=== PATIENT | male | born 1955 | race Caucasian/White ===

== ENCOUNTER → 2023-12-12 | Outpatient (CLI) | payer BC, SELFPAY ==
[2023-12-12 08:27] LABS: Basophils % (Auto) 1 % (0-2.5); Eosinophils # (Auto) 0.2 Thou/mm3 (0.0-0.5); Eosinophils % (Auto) 3 % (0-10); Hematocrit 43.7 % (41.0-53.0); Hemoglobin 13.8 g/dL (13.5-16.0); Immature Granulocytes % (Auto) 3 % (0-0); Immature Granulocytes Auto 0.16 Thou/mm3 (0.00-0.00); Lymphocytes # (Auto) 0.9 Thou/mm3 (1.0-4.8); Lymphocytes % (Auto) 14 % (10-50); Mean Corpuscular HGB Conc 31.6 g/dl (31.0-37.0); Mean Corpuscular Hemoglobin 26.8 pg (25.0-35.0); Mean Corpuscular Volume 85 fL (80-100); Monocytes # (Auto) 0.6 Thou/mm3 (0.0-0.8); Monocytes % (Auto) 9 % (0-12); Neutrophils # (Auto) 4.7 Thou/mm3 (1.8-7.7); Neutrophils % (Auto) 72 % (37-80); Nucleated Red Blood Cell % 0 /100 WBC (0); Platelet Count 201 Thou/mm3 (140-440); RDW Standard Deviation 41.1 fL (35.1-43.9); Red Blood Count 5.15 Miln/mm3 (4.50-5.90); White Blood Count 6.5 Thou/mm3 (3.8-10.6)
--- NOTE | 2023-12-12 08:32 | EKG_ITS ---
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
[2023-12-12 09:06] LABS: Alanine Aminotransferase 25 U/L (10-49); Albumin, Serum 4.5 gm/dL (3.4-4.8); Albumin/Globulin Ratio 1.7 (1.2-2.2); Alkaline Phosphatase 84 U/L (46-116); Anion Gap 10 (7-16); Aspartate Amino Transferase 21 U/L (0-34); BUN/Creatinine Ratio 15 Ratio (12-20); Bilirubin,Total 0.6 mg/dL (0.3-1.2); Blood Urea Nitrogen 20 mg/dL (9-23); Calcium 9.5 mg/dL (8.3-10.6); Calcium (Corrected) 9.5 mg/dL (8.5-10.1); Carbon Dioxide 27.8 mMol/L (20.0-31.0); Chloride 101 mMol/L (98-107); Creatinine (Component) 1.3 mg/dL (0.6-1.3); Globulin 2.6 gm/dL (2.3-3.5); Glucose 314 mg/dL (74-106); Osmolality,Calculated 292 (275-295); Potassium 4.6 mMol/L (3.4-5.1); Sodium 139 mMol/L (136-145); Total Protein 7.1 gm/dL (5.7-8.2); eGFR > 60 See Note
[2023-12-13 08:35] LABS: Misc Send Out* See Sep Rpt
== END | disposition home or self-care (01) ==
PROVIDERS: PCP Family Medicine; Referring Provider Orthopaedic Surgery; Visit Provider Orthopaedic Surgery
DX: M75.112 Incomplete rotator cuff tear or rupture of left shoulder, not specified as traumatic (principal); M25.512 Pain in left shoulder
CPT/HCPCS: 36415; 80053; 83036; 85025; 93005

== ENCOUNTER → 2024-05-13 | Outpatient (CLI) | payer OTHER, SELFPAY ==
--- NOTE | 2024-05-13 09:19 | EKG_ITS ---
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 : 1955 Requested By: Lalo Maldonado Order Number: [id number] Reading MD: Lalo Maldonado Measurements Intervals [place] Rate: 97 P: MO: QRS: 188 QRSD: 113 T: -7 QT: 352 QTc: 448 Interpretive Statements ATRIAL FLUTTER/TACHYCARDIA INCOMPLETE RIGHT BUNDLE BRANCH BLOCK [90+ ms QRS DURATION, TERMINAL R IN V1/V2, 40+ ms S IN I/aVL/V4/V5/V6] POSSIBLE RIGHT VENTRICULAR HYPERTROPHY [SOME/ALL OF: PROMINENT R IN V1, LATE TRANSITION, RAD, KEREN, SSS] ANTEROSEPTAL MYOCARDIAL INFARCTION , PROBABLY OLD [40+ ms Q WAVE IN V1-V4] Compared to ECG 12/12/2023 08:36:45 Sinus rhythm no longer present Indeterminate axis no longer present Myocardial infarct finding still present /store/S0/[id number]
[2024-05-13 09:47] LABS: Anion Gap 10 (7-16); BUN/Creatinine Ratio 14 Ratio (12-20); Blood Urea Nitrogen 20 mg/dL (9-23); Calcium 8.7 mg/dL (8.3-10.6); Carbon Dioxide 30.3 mMol/L (20.0-31.0); Chloride 98 mMol/L (98-107); Creatinine (Component) 1.4 mg/dL (0.6-1.3); Glucose 323 mg/dL (74-106); Osmolality,Calculated 290 (275-295); Potassium 3.5 mMol/L (3.4-5.1); Sodium 138 mMol/L (136-145); eGFR 55 See Note
== END | disposition home or self-care (01) ==
PROVIDERS: PCP Family Medicine; Referring Provider Surgery Surgery of the Hand; Visit Provider Surgery Surgery of the Hand
DX: Z01.818 Encounter for other preprocedural examination (principal); G56.02 Carpal tunnel syndrome, left upper limb
CPT/HCPCS: 36415; 80048; 93005

== ENCOUNTER → 2024-06-26 | Outpatient (CLI) | payer OTHER, SELFPAY ==
[2024-06-26 09:56] LABS: Anion Gap 13 (7-16); BUN/Creatinine Ratio 23 Ratio (12-20); Blood Urea Nitrogen 34 mg/dL (9-23); Calcium 8.9 mg/dL (8.3-10.6); Carbon Dioxide 26.6 mMol/L (20.0-31.0); Chloride 101 mMol/L (98-107); Creatinine (Component) 1.5 mg/dL (0.6-1.3); Glucose 202 mg/dL (74-106); Osmolality,Calculated 294 (275-295); Potassium 3.9 mMol/L (3.4-5.1); Sodium 141 mMol/L (136-145); eGFR 51 See Note
== END | disposition home or self-care (01) ==
LOC: COPL 08:54
PROVIDERS: PCP Family Medicine; Referring Provider Surgery Surgery of the Hand; Visit Provider Surgery Surgery of the Hand
DX: Z01.818 Encounter for other preprocedural examination (principal); G56.02 Carpal tunnel syndrome, left upper limb
CPT/HCPCS: 36415; 80048

== ENCOUNTER → 2024-07-17 | Outpatient (CLI) | payer BC, SELFPAY ==
--- NOTE | 2024-07-17 13:45 | XR_ITS ---
Examination: MRI lumbar spine without contrast Date and time of exam: July 17, 2024 at 1456 hours Comparison 11/04/2017 INDICATIONS: Intermittent low back pain 3 years radiating down the left leg Technique: Multiple MRI axial and sagittal sections lumbar spine. Sagittal T2-weighted images, TR 3500, TE 118 T1 weighted transverse sections, TR 688 T8.5, T2-weighted sagittal sections T1 weighted sagittal sections TR 621, TE 30 T2 axial sections, TR 4, 190, TE 84. Findings: Adequate alignment lumbar vertebral bodies No lumbar fracture Mild distention posteriorly L5-S1 L5-S1 4 mm left foraminal disc bulge sagittal image 11 producing mild left L5 ganglionic compression L4-L5 3 mm central lumbar disc bulge More cephalad levels unremarkable IMPRESSION: L5-S1 4 mm left foraminal disc bulge producing mild left L5 ganglionic compression L4-L5 3 mm central lumbar disc bulge
== END | disposition home or self-care (01) ==
LOC: SMRI 13:10
PROVIDERS: PCP Family Medicine; Referring Provider Family Medicine; Visit Provider Family Medicine
DX: M51.379 Other intervertebral disc degeneration, lumbosacral region without mention of lumbar back pain or lower extremity pain (principal)
CPT/HCPCS: 72148

== ENCOUNTER 2024-09-24 06:33 | Day surgery (SDC) | payer BC, SELFPAY ==
--- NOTE | 2024-09-23 07:00 | EKG_ITS ---
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 : 1955 Requested By: Gabino Newton Order Number: [id number] Reading MD: Gabino Newton Measurements Intervals [place] Rate: 103 P: 40 MD: 184 QRS: 218 QRSD: 109 T: 7 QT: 352 QTc: 462 Interpretive Statements SINUS TACHYCARDIA MARKED RIGHT AXIS DEVIATION [QRS AXIS > 100] LOW QRS VOLTAGE [QRS DEFLECTION < 0.5/1.0 mV IN LIMB/CHEST LEADS] RIGHT BUNDLE BRANCH BLOCK [120+ ms QRS DURATION, UPRIGHT V1, 40+ ms S IN I/aVL/V4/V5/V6] INFERIOR MYOCARDIAL INFARCTION , PROBABLY OLD [40+ ms Q WAVE AND/OR ST/T ABNORMALITY IN II/aVF] ANTEROSEPTAL MYOCARDIAL INFARCTION , PROBABLY OLD [40+ ms Q WAVE IN V1-V4] Compared to ECG 05/13/2024 09:26:38 Right-axis deviation now present Low QRS voltage now present Right bundle-branch block now present Atrial flutter no longer present Incomplete right bundle-branch block no longer present Myocardial infarct finding still present /store/S0/[id number]/[id number].pdf
[2024-09-23 09:47] LABS: Basophils # (Auto) 0.0 Thou/mm3 (0.0-0.2); Basophils % (Auto) 1 % (0-2.5); Eosinophils # (Auto) 0.1 Thou/mm3 (0.0-0.5); Eosinophils % (Auto) 2 % (0-10); Hematocrit 38.7 % (41.0-53.0); Hemoglobin 11.9 g/dL (13.5-16.0); Immature Granulocytes Auto 0.04 Thou/mm3 (0.00-0.00); Lymphocytes # (Auto) 0.8 Thou/mm3 (1.0-4.8); Lymphocytes % (Auto) 14 % (10-50); Mean Corpuscular HGB Conc 30.7 g/dl (31.0-37.0); Mean Corpuscular Hemoglobin 26.2 pg (25.0-35.0); Mean Corpuscular Volume 85 fL (80-100); Monocytes # (Auto) 0.5 Thou/mm3 (0.0-0.8); Monocytes % (Auto) 10 % (0-12); Neutrophils # (Auto) 3.8 Thou/mm3 (1.8-7.7); Neutrophils % (Auto) 72 % (37-80); Nucleated Red Blood Cell # 0.00 Thou/mm3 (0.00-0.00); Nucleated Red Blood Cell % 0 /100 WBC (0); Platelet Count 196 Thou/mm3 (140-440); RDW Standard Deviation 54.4 fL (35.1-43.9); Red Blood Count 4.55 Miln/mm3 (4.50-5.90); White Blood Count 5.3 Thou/mm3 (3.8-10.6)
[2024-09-23 10:12] LABS: Anion Gap 11 (7-16); BUN/Creatinine Ratio 16 Ratio (12-20); Blood Urea Nitrogen 19 mg/dL (9-23); Calcium 9.8 mg/dL (8.3-10.6); Carbon Dioxide 25.8 mMol/L (20.0-31.0); Chloride 105 mMol/L (98-107); Creatinine (Component) 1.2 mg/dL (0.6-1.3); Glucose 184 mg/dL (74-106); Osmolality,Calculated 290 (275-295); Potassium 3.8 mMol/L (3.4-5.1); Sodium 142 mMol/L (136-145); eGFR > 60 See Note
[2024-09-23 10:23] LABS: COVID-19 Antigen (In-House) Negative (Negative)
[2024-09-23 10:50] LABS: INR 1.1 (0.9-1.3); Partial Thromboplastin Time 25.5 Seconds (22.0-36.0); Prothrombin Time 11.6 Seconds (9.0-12.2)
[2024-09-23 14:55] VITALS: BMI 29.5
[2024-09-24] VITALS (18 sets, daily range): BP systolic 119–156; BP diastolic 64–120; PULSE 97–109; RESP 14–21; TEMP 36.6–36.9; O2SAT 90–99; BMI 31.8
[2024-09-24] MEDS: DIAZEPAM 5 MG TABLET PO (07:21)
--- NOTE | 2024-09-24 08:24 | PD.CARDCATH ---
Cardiac Cath Procedure Procedure Narrative Date of the procedure 09/24/2024 Title of the procedure 1.left heart catheterization 2.left coronary angiogram 3.right coronary angiogram 4.left ventriculogram 5.conscious sedation 6.radiographic interpretation supervision Indication for the procedure This is a 68-year-old gentleman with hypertension diabetes hyperlipidemia prior history of heart transplantation Patient was complaining of atypical chest pain pressure heaviness sensation Process Cardiolite scan was abnormal Cardiac catheter and coronary angiogram was recommended Procedure This was done in the cardiac lab under current electrocardiographic monitoring Intermittent blood pressure monitoring right radial access obtained using modified Seldinger technique and ultrasound guidance 5French sheath was placed JR4 catheter used was selective in the right coronary artery JL 4 catheter was used for selective angio left coronary artery Pigtail catheter used for left ventriculogram Hemodynamics Overall left and the systolic function is mildly reduced Approximate ejection fraction 45% End-diastolic pressure was 18 mmHg There is no gradient across the aortic valve Coronary anatomy 1.left main coronary artery appears normal 2.left anterior descending artery has a 40% lesion in the midsegment 3.diagonal appears to show luminal regularities 4.circumflex does not seem to have any significant lesion 5.right coronary is a dominant vessel 6.no significant lesion noted in the right coronary artery or PDA Conclusion Mild coronary artery disease continue medical management
[2024-09-24] MEDS: SODIUM CHLORIDE 0.9% 1000 ML 1,000 ML 200 ML IV (08:29)
--- NOTE | 2024-09-24 13:15 | PC.NURSE ---
22 gauge IV removed without complications. Patient tolerated procedure well.
== END 2024-09-24 13:22 | disposition home or self-care (01) ==
PROVIDERS: PCP Family Medicine; Referring Provider Internal Medicine; Visit Provider Internal Medicine
PROC: (CPT 93458; principal; 2024-09-24 07:45)
DX: I25.10 Atherosclerotic heart disease of native coronary artery without angina pectoris (principal); Z94.1 Heart transplant status; E11.9 Type 2 diabetes mellitus without complications; I10 Essential (primary) hypertension; Z79.899 Other long term (current) drug therapy; Z79.84 Long term (current) use of oral hypoglycemic drugs; Z01.810 Encounter for preprocedural cardiovascular examination; I25.2 Old myocardial infarction; I42.9 Cardiomyopathy, unspecified
CPT/HCPCS: 93458; 36415; 75710; 80048; 85025; 85610; 85730; 87811; 93005; 99152; 99153; A4216; A4649; C1751; C1769; C1887; C1894; J0168; J0461; J0583; J1643; J2250; J2312; J2371; J3010; J3490; J7030; Q9967; A9270; C1725

== ENCOUNTER → 2024-12-30 | Outpatient (CLI) | payer BC, SELFPAY ==
--- NOTE | 2024-12-30 13:05 | XR_ITS ---
EXAMINATION: XR chest 2V ORDERING PROVIDER: Jordan Vyas MD HISTORY: ACUTE COUGH TECHNIQUE: PA and Lateral radiographs of the chest. COMPARISON: 05/03/2021, chest radiographs. FINDINGS: Mild cardiomegaly. Median sternotomy wires. Uncoiled aorta. Calcifications aortic arch. Coronary artery stents. No pneumothorax. Mild blunting right costophrenic angle. Asymmetric elevation right hemidiaphragm compared to the left. Bibasilar patchy airspace opacities. Vasculopathic changes. Osteopenia. IMPRESSION: Bibasilar pneumonia with small right pleural effusion. Recommend follow-up imaging to resolution.
[2024-12-30 13:29] LABS: Basophils # (Auto) 0.0 Thou/mm3 (0.0-0.2); Basophils % (Auto) 0 % (0-2.5); Eosinophils # (Auto) 0.1 Thou/mm3 (0.0-0.5); Eosinophils % (Auto) 1 % (0-10); Hematocrit 37.6 % (41.0-53.0); Hemoglobin 11.7 g/dL (13.5-16.0); Immature Granulocytes Auto 0.04 Thou/mm3 (0.00-0.00); Lymphocytes # (Auto) 0.5 Thou/mm3 (1.0-4.8); Lymphocytes % (Auto) 8 % (10-50); Mean Corpuscular HGB Conc 31.1 g/dl (31.0-37.0); Mean Corpuscular Hemoglobin 25.7 pg (25.0-35.0); Mean Corpuscular Volume 83 fL (80-100); Monocytes # (Auto) 0.7 Thou/mm3 (0.0-0.8); Monocytes % (Auto) 11 % (0-12); Neutrophils # (Auto) 4.9 Thou/mm3 (1.8-7.7); Neutrophils % (Auto) 79 % (37-80); Nucleated Red Blood Cell # 0.00 Thou/mm3 (0.00-0.00); Nucleated Red Blood Cell % 0 /100 WBC (0); Platelet Count 184 Thou/mm3 (140-440); RDW Standard Deviation 49.6 fL (35.1-43.9); Red Blood Count 4.55 Miln/mm3 (4.50-5.90); White Blood Count 6.2 Thou/mm3 (3.8-10.6)
[2024-12-30 13:53] LABS: Alanine Aminotransferase 9 U/L (10-49); Albumin, Serum 4.2 gm/dL (3.4-4.8); Albumin/Globulin Ratio 1.6 (1.2-2.2); Alkaline Phosphatase 100 U/L (46-116); Anion Gap 10 (7-16); Aspartate Amino Transferase 13 U/L (0-34); BUN/Creatinine Ratio 16 Ratio (12-20); Bilirubin,Total 1.1 mg/dL (0.3-1.2); Blood Urea Nitrogen 28 mg/dL (9-23); Calcium 8.7 mg/dL (8.3-10.6); Calcium (Corrected) 8.7 mg/dL (8.5-10.1); Carbon Dioxide 25.8 mMol/L (20.0-31.0); Chloride 103 mMol/L (98-107); Creatinine (Component) 1.7 mg/dL (0.6-1.3); Globulin 2.6 gm/dL (2.3-3.5); Glucose 340 mg/dL (74-106); Osmolality,Calculated 296 (275-295); Potassium 4.2 mMol/L (3.4-5.1); Sodium 139 mMol/L (136-145); Total Protein 6.8 gm/dL (5.7-8.2); eGFR 43 See Note
[2024-12-30 14:08] LABS: B-Type Natriuretic Peptide 1423 pg/mL (0-100)
== END | disposition home or self-care (01) ==
PROVIDERS: PCP Family Medicine; Referring Provider Family Medicine; Visit Provider Radiology Diagnostic Radiology
DX: J18.9 Pneumonia, unspecified organism (principal); J90 Pleural effusion, not elsewhere classified; N18.30 Chronic kidney disease, stage 3 unspecified
CPT/HCPCS: 36415; 71046; 80053; 83880; 85025

== ENCOUNTER → 2025-01-06 | Outpatient (CLI) | payer BC, SELFPAY ==
--- NOTE | 2025-01-06 12:36 | XR_ITS ---
EXAMINATION: PA lateral chest 2 views TECHNIQUE: Upright PA lateral chest 2 views Date and time: 2024, 1241 hours, comparison December 30, 2024 INDICATIONS: Coughing congestion 1 month. FINDINGS: Mild pneumonia both bases Small right pleural effusion Mild prominence left ventricle Median sternotomy wires IMPRESSION: Mild pneumonia both bases
== END | disposition home or self-care (01) ==
LOC: CDIM 12:30
PROVIDERS: PCP Nurse Practitioner Family; Referring Provider Nurse Practitioner Family; Visit Provider Nurse Practitioner Family
DX: J18.9 Pneumonia, unspecified organism (principal)
CPT/HCPCS: 71046

== ENCOUNTER 2025-01-07 10:48 | Inpatient (IN) | payer BC, SELFPAY ==
[2025-01-07 11:16] VITALS: BP 138/90; PULSE 123; RESP 18; TEMP 36.8; O2SAT 95; BMI 31.0
--- NOTE | 2025-01-07 11:26 | XR_ITS ---
EXAMINATION: PA lateral chest 2 views TECHNIQUE: Upright PA lateral chest 2 views Date and time: January 07, 2025, 11:28 a.m., comparison 08/06/2024 INDICATIONS: Difficulty breathing this week, pneumonia both bases on earlier chest imaging FINDINGS: Mild pneumonia both bases Small to moderate right pleural effusion Median sternotomy wires Moderate vascular congestion IMPRESSION: Mild pneumonia both bases Small to moderate right pleural effusion
--- NOTE | 2025-01-07 11:27 | EKG_ITS ---
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: : 1955 Requested By: Ebenezer Macias (COLLAR STAY FUSER TENDER) Order Number: [id number] Reading MD: Ebenezer Macias (COLLAR STAY FUSER TENDER) Measurements Intervals [place] Rate: 111 P: 33 VA: 171 QRS: 239 QRSD: 110 T: 12 QT: 301 QTc: 410 Interpretive Statements SINUS TACHYCARDIA INCOMPLETE RIGHT BUNDLE BRANCH BLOCK [90+ ms QRS DURATION, TERMINAL R IN V1/V2, 40+ ms S IN I/aVL/V4/V5/V6] POSSIBLE RIGHT VENTRICULAR HYPERTROPHY [SOME/ALL OF: PROMINENT R IN V1, LATE TRANSITION, RAD, KEREN, SSS] INFERIOR MYOCARDIAL INFARCTION , PROBABLY OLD [40+ ms Q WAVE AND/OR ST/T ABNORMALITY IN II/aVF] ANTEROSEPTAL MYOCARDIAL INFARCTION , PROBABLY OLD [40+ ms Q WAVE IN V1-V4] Compared to ECG 09/23/2024 09:34:48 Incomplete right bundle-branch block now present Right-axis deviation no longer present Right bundle-branch block no longer present Myocardial infarct finding still present /store/S0/[id number]/[id number].pdf
--- NOTE | 2025-01-07 11:55 | EDNOTE_ITS ---
<Statement entered by Stephanie Tleles MD - 01/18/25 06:33> As co-signing physician, I was present and available for consult prn. I concur with the plan and care as documented by the midlevel provider. ED General RME/HPI General Chief complaint: General Adult/Misc Complain Stated complaint: SENT BY PCP FOR IV ATB FOR PNEUMONIA Time Seen by Provider: 01/07/25 11:46 Arrival date/time: 01/07/25 10:48 CC: Shortness of breath lower extremity edema HPI patient states he has been on 2 rounds of antibiotics for pneumonia . And was sent by his doctor because a repeat chest x-ray was unchanged . Patient states he has been off his Lasix for the past 3 weeks secondary to saving the kidneys per his doctor. Patient states he has intermittent cough that is nonproductive denies any fever. Exertional dyspnea when he goes to get his mail. Currently denies any chest pain or shortness of breath when supine. Related Data Home Medications ?Medication ?Instructions ?Recorded ?Confirmed omeprazole 20 mg capsule,delayed 20 mg PO QDAY ##0 01/07/25 release insulin aspart U-100 100 unit/mL 10 unit subcut TID 01/07/25 (3 mL) subcutaneous pen (Novolog FlexPen U-100 Insulin aspart) insulin glargine 100 unit/mL 26 unit subcut QPM 01/07/25 subcutaneous solution (Lantus U-100 Insulin) tacrolimus 1 mg capsule, 3 mg PO Q12H 08/21/19 immediate-release (Prograf) gabapentin 100 mg capsule 50 mg PO DAILY 12/31/1904/02 prednisolone 5 mg tablet 5 mg PO QDAY 12/31/19 liraglutide 0.6 mg/0.1 mL (18 mg/3 1.2 mg subcut QDAY 06/14/21 01/07/25 mL) subcutaneous pen injector (Victoza 2-Jose Guadalupe) rosuvastatin 20 mg tablet 5 mg PO DAILY 09/24/2401/07 sirolimus 0.5 mg tablet 1 mg PO Q12H 09/24/24 amoxicillin 875 mg-potassium 1 tab PO Q12H 01/07/25 clavulanate 125 mg tablet tacrolimus 0.5 mg capsule, 0.5 mg PO Q12H 01/07/2504/02 immediate-release tramadol 50 mg tablet 50 mg PO DAILY PRN pain 04/0201/07/25 Allergies Allergy/AdvReac Type Severity Reaction Status Date / Time No Known Allergies Allergy Verified 01/07/25 10:52 Review of Systems Review of Systems Narrative Review of Systems: GEN: No fever, no chills, no weight loss EYES: No discharge, no visual changes, no pain HEENT: No ear pain, no congestion, no sore throat PULM: + shortness of breath, no cough, no congestion CV: No chest pain, no dyspnea on exertion, no palpitations GI: No nausea, no vomiting, no diarrhea, no pain, no constipation : No frequency, no urgency, no dysuria MUSC/SKEL: No joint pain, no back pain SKIN: No rash PSYCH: No hallucinations, no depression HEME/LYMPH: No easy bleeding or bruising tendencies NEURO: No weakness, no headache Past Medical History Past Medical History NEUROLOGIC: Negative Neurological Disorders CARDIAC: Positive Cardiac Disorders, Hypercholesterolemia, Congestive Heart Failure and Hypertension; Negative Myocardial Infarction, Cardiac Arrhythmia, Atrial Fibrillation or Coronary Artery Disease RESPIRATORY: Negative Chronic Obstructive Pulmonary Disease (COPD) or Sleep Apnea GASTROINTESTINAL: Negative Gastrointestinal Disorders GENITOURINARY: Positive Prostate Cancer; Negative Genitourinary Disorders or Renal Disease MUSCULOSKELETAL: Positive Musculoskeletal Disorders and Arthritis ENDOCRINE: Positive Diabetes Mellitus Type 2; Negative Diabetes Mellitus Type 1 or Hypothyroidism HEMATOLOGIC: Negative Blood Disorders OTHER HISTORY: Positive Cancer and Prostate Cancer Surgical History SURGICAL: Positive Cardiac Surgery and Open Heart Surgery; Negative Pacemaker Social History SMOKING STATUS: Never smoker SECOND HAND EXPOSURE: No ED Exam Narrative Physical exam: [General: Obese not in any acute distress Head normocephalic HEENT: Within acceptable limits Neck is supple nontender Chest equal chest rise nontender to palpation Respiratory: Clear to auscultation no wheezes crackles or rubs CV: Rate rhythm is regular no murmurs rubs or clicks Abdomen is distended secondary to body habitus soft nontender no masses positive bowel sounds all 4 quadrants Back: No CVA tenderness no spinous process tenderness from cervical spine thoracic and lumbar spine Skin: Large center chest vertical surgical scar well-healed. Otherwise skin is intact no petechiae rash induration ulceration or crepitus Extremities: Moving all extremity against resistance cap refill less than 2 seconds neurosensory intact. 2+ edema in the lower legs and the dorsum of the feet. Nontender no erythema not warm to touch. Neuro: Awake alert oriented x3 Glascow coma 15 no focal deficits] Course Course Course Narrative: Laboratory results show the patient has a fluid overload both pitting edema in his lower extremity as well as an elevated BNP. Understood that his creatinine is elevated at 1.6. I suspect the patient's tachycardia and elevated troponin are secondary to fluid overload and not necessarily pneumonia although this could be a concomitant. The patient displays no acute pneumonic symptoms such as fever or productive cough. His shortness of breath I think is secondary to fluid all over as he has exertional dyspnea. Patient's clinical findings physical assessment and imaging discussed with Dr. Newton his director of solutions architecture who wants the patient admitted in a controlled diuresis on an inpatient basis he will consult on the patient. Patient case discussed with the resident for Dr. Thompson, who agrees accept the patient for admission. Quality Measures none Orders Category Date Time Status Admit to Inpatient Status Routine Admission 01/07/25 14:47 Active Patient Condition Routine Admission 01/07/25 14:47 Ordered COVID-19 Screening Questionnaire NOW Care 01/07/25 13:48 Active Continuous Pulse Oximetry NOW Care 01/07/25 14:46 Active Decision to Admit X1 Care 01/07/25 13:48 Completed EKG (ED ONLY) *Do not use* NOW Care 01/07/25 11:27 Completed Fluid restriction QDAY Care 01/07/25 14:52 Active Insert IV NOW Care 01/07/25 11:27 Active NB Measurements & Daily Weight QDAY Care 01/07/25 14:52 Active Notify provider NEEDED Care 01/07/25 14:47 Active Strict Intake and Output Routine Care 01/07/25 14:56 Ordered Consult to Cardiology Stat Cons 01/07/25 13:35 Ordered Diet Low Sodium (2gm) Diet 01/07/25 Dinner Active CA echo doppler complete Routine Exams 01/07/25 14:55 Ordered EKG (ED Only) Stat Exams 01/07/25 11:27 Draft XR chest 2V Stat Exams 01/07/25 11:26 Completed BNP [B-Type Natriuretic Peptide] Stat Lab 01/07/25 11:54 Completed Basic Metabolic Panel AM DRAW Lab 01/08/25 05:00 Ordered Basic Metabolic Panel AM DRAW Lab 01/09/25 05:00 Ordered Basic Metabolic Panel AM DRAW Lab 01/10/25 05:00 Ordered Blood Culture (Lab) Stat Lab 01/07/25 11:54 Received CBC AM DRAW Lab 01/08/25 05:00 Ordered CBC AM DRAW Lab 01/09/25 05:00 Ordered CBC AM DRAW Lab 01/10/25 05:00 Ordered CBC Stat Lab 01/07/25 11:54 Completed COVID-19 Antigen (In-House) Stat Lab 01/07/25 11:32 Completed Comprehensive Metabolic Panel Stat Lab 01/07/25 11:54 Completed FLU A&B [Influenza A & B Rapid Panel] Stat Lab 01/07/25 11:32 Completed Lactate (Lactic Acid) Stat Lab 01/07/25 11:54 Completed Lipid Panel AM DRAW Lab 01/08/25 05:00 Ordered Magnesium AM DRAW Lab 01/08/25 05:00 Ordered Magnesium AM DRAW Lab 01/09/25 05:00 Ordered Magnesium AM DRAW Lab 01/10/25 05:00 Ordered Phosphorous AM DRAW Lab 01/08/25 05:00 Ordered Phosphorous AM DRAW Lab 01/09/25 05:00 Ordered Phosphorous AM DRAW Lab 01/10/25 05:00 Ordered Procalcitonin Stat Lab 01/07/25 11:54 Completed Thyroid Stimulating Hormone AM DRAW Lab 01/08/25 05:00 Ordered Troponin I Q6H Lab 01/07/25 17:47 Completed Troponin I Stat Lab 01/07/25 11:54 Completed Acetaminophen Tab [Tylenol Tab] Med 01/07/25 14:46 Active 650 mg PO Q6H PRN Bumetanide Inj [Bumex Inj] Med 01/07/25 15:00 Active 1 mg IVP QDAY Enoxaparin [Lovenox] Med 01/08/25 09:00 Active 40 mg SC QDAY Ondansetron Inj [Zofran Inj] Med 01/07/25 14:52 Active 4 mg IVP Q6H PRN cefTRIAXone/D5w 1gm IV premix [Rocephin/D5w 1gm IV Med 01/07/25 13:46 Discontinued premix] 1 gm in 50 ml IV X1 Code Status Routine Oth 01/07/25 14:46 Ordered Vital Signs Vital signs: Vital Signs Temperature 98.3 F 01/07/25 11:16 Pulse Rate 123 H 01/07/25 11:16 Respiratory Rate 18 01/07/25 11:16 Blood Pressure 138/90 H 01/07/25 11:16 Pulse Oximetry (%) 95 01/07/25 11:16 Oxygen Delivery Method Room Air 01/07/25 11:16 Discharge Plan Plan Patient Disposition: Other Care w/in Hosp (SDC/IDRIS) Patient condition on transfer: Stable Problem List Clinical Impression: CHF (congestive heart failure), HENRRY (acute kidney injury), Pneumonia PA/KILN STACKER Supervising Physician PA/KILN STACKER Supervising Physician: Maurice Terry ENP [facility] Clinical Information Provided by: patient Medical Records reviewed [facility] Meds/Rx considered, not ordered None Labs/Rad/Tests considered, not ordered None Chronic Illness/Social Conditions Explain: Heart transplant recent cath by Dr. Newton. September 2024. Patient has mild cardiovascular disease with recommended medical management. EKG Interpretation EKG #1: EKG Interpretation: EKG performed at 1140 shows a ventricular rate of 111 SC interval 171 QRS of 110 QTc of 367 this is sinus tachycardia incomplete right bundle branch block. Medication Administration(s) Medication Administration History Acetaminophen (Acetaminophen 325 Mg Tablet) 650 mg PO Q6H PRN PRN Reason: PAIN (1-3) OR FEVER > 100.4 Stop: 02/06/25 14:45 Last Admin: 01/07/25 21:04 Dose: 650 mg Documented By: MARGARET Bumetanide (Bumetanide Inj 0.25 Mg/Ml Vial 4 Ml) 1 mg IVP QDAY [facility] Stop: 02/06/25 14:59 Last Admin: 01/07/25 15:12 Dose: 1 mg Documented By: LISETH Sirolimus 0.5 Mg (Tablet) 0 ea PO Q12HR [facility] Stop: 02/06/25 20:59 Last Admin: 01/07/25 21:13 Dose: Not Given Documented By: SS Non-Admin Reason: Patient Refused Comments: Per patient takes this med in the AM once daily Dextrose (Dextrose 50%-Water Inj 50 Ml Syringe) 25 ml IV Q15MIN PRN PRN Reason: BG 50-70 responsive npo pt Stop: 02/06/25 15:27 Dextrose (Dextrose 50%-Water Inj 50 Ml Syringe) 50 ml IV Q15MIN PRN PRN Reason: BG <50 OR BG <70 & pt unresponsive Stop: 02/06/25 15:27 Enoxaparin Sodium (Enoxaparin Sod Inj 40 Mg/0.4 Ml Syringe) 40 mg SC QDAY [facility] Stop: 01/22/25 08:59 Glucagon (Glucagon Inj 1 Mg Vial) 1 mg IM Q15MIN PRN PRN Reason: BG <70, and no IV access Levofloxacin/Dextrose (Levaquin Ivpb) 750 mg in 150 mls @ 100 mls/hr IV QDAY [facility] Stop: 01/15/25 15:29 Insulin Human Lispro (Insulin Lispro (Admelog) 1 Unit/0.01 Ml Unit) 0 unit SC ACHS [facility]; Protocol Stop: 02/06/25 21:14 Last Admin: 01/07/25 21:29 Dose: 4 unit Documented By: MARGARET Co-signed By: TUNG Non-Formulary Medication (Rosuvastatin) 5 mg PO DAILY [facility] Stop: 02/07/25 08:59 Ondansetron HCl (Ondansetron Inj 2 Mg/Ml Inj 2 Ml) 4 mg IVP Q6H PRN; Protocol PRN Reason: NAUSEA OR VOMITING Stop: 02/06/25 14:51 Pantoprazole Sodium (Pantoprazole 40 Mg Tablet) 40 mg PO QDAY [facility] Stop: 02/07/25 08:59 Pharmacy Consult (Pharmacy Renal Dose Adjustment 1 Ea) 1 each XX PRN PRN PRN Reason: CONSULT Stop: 02/06/25 15:04 Prednisone (Prednisone 5 Mg Tablet) 5 mg PO QDAY [facility] Stop: 02/07/25 08:59 Tacrolimus (Tacrolimus 1 Mg Capsule) 1 mg PO Q12H [facility] Stop: 02/06/25 20:59 Last Admin: 01/07/25 21:03 Dose: 1 mg Documented By: SS Tacrolimus (Tacrolimus 0.5 Mg Capsule) 0.5 mg PO Q12H [facility] Stop: 02/06/25 21:29 Last Admin: 01/07/25 21:03 Dose: 0.5 mg Documented By: SS Discontinued Medications Ceftriaxone Sodium/Dextrose (Rocephin/D5w 1gm Iv Premix) 1 gm in 50 mls @ 100 mls/hr IV X1 ONE Stop: 01/07/25 14:15 Last Admin: 01/07/25 15:17 Dose: Not Given Documented By: LISETH Non-Admin Reason: Cancelled by Provider Insulin Human Lispro (Insulin Lispro (Admelog) 1 Unit/0.01 Ml Unit) 0 unit SC AC [facility]; Protocol Stop: 02/06/25 16:59 Last Admin: 01/07/25 16:17 Dose: Not Given Documented By: LISETH Non-Admin Reason: Per Protocol
--- NOTE | 2025-01-07 11:59 | PC.NURSE ---
Pt came to ED for c/o SOB when ambulating, reported has been going on for a couple of weeks. Has seen his PCP which ordered some antibx but were not effective. Currently VSS, denies pain but reports edema increasing to yoahnnes lower ext.
[2025-01-07 12:06] LABS: Basophils # (Auto) 0.0 Thou/mm3 (0.0-0.2); Basophils % (Auto) 1 % (0-2.5); Eosinophils # (Auto) 0.1 Thou/mm3 (0.0-0.5); Eosinophils % (Auto) 1 % (0-10); Hematocrit 39.7 % (41.0-53.0); Hemoglobin 12.2 g/dL (13.5-16.0); Immature Granulocytes Auto 0.05 Thou/mm3 (0.00-0.00); Lymphocytes # (Auto) 0.6 Thou/mm3 (1.0-4.8); Lymphocytes % (Auto) 10 % (10-50); Mean Corpuscular HGB Conc 30.7 g/dl (31.0-37.0); Mean Corpuscular Hemoglobin 25.7 pg (25.0-35.0); Mean Corpuscular Volume 84 fL (80-100); Monocytes # (Auto) 0.6 Thou/mm3 (0.0-0.8); Monocytes % (Auto) 9 % (0-12); Neutrophils # (Auto) 5.1 Thou/mm3 (1.8-7.7); Neutrophils % (Auto) 79 % (37-80); Nucleated Red Blood Cell # 0.00 Thou/mm3 (0.00-0.00); Nucleated Red Blood Cell % 0 /100 WBC (0); Platelet Count 202 Thou/mm3 (140-440); RDW Standard Deviation 51.6 fL (35.1-43.9); Red Blood Count 4.74 Miln/mm3 (4.50-5.90); White Blood Count 6.4 Thou/mm3 (3.8-10.6)
[2025-01-07 12:48] LABS: B-Type Natriuretic Peptide 1119 pg/mL (0-100)
[2025-01-07 12:53] LABS: Influenza A Ag Negative; Influenza B Ag Negative
[2025-01-07 12:54] LABS: COVID-19 Antigen (In-House) Negative (Negative)
[2025-01-07 13:00] VITALS: BP 133/98; PULSE 108; RESP 19; TEMP 36.7; O2SAT 95
[2025-01-07 13:23] LABS: Alanine Aminotransferase 22 U/L (10-49); Albumin, Serum 4.7 gm/dL (3.4-4.8); Albumin/Globulin Ratio 1.6 (1.2-2.2); Alkaline Phosphatase 122 U/L (46-116); Anion Gap 11 (7-16); Aspartate Amino Transferase 14 U/L (0-34); BUN/Creatinine Ratio 16 Ratio (12-20); Bilirubin,Total 1.0 mg/dL (0.3-1.2); Blood Urea Nitrogen 26 mg/dL (9-23); Calcium 9.7 mg/dL (8.3-10.6); Calcium (Corrected) 9.7 mg/dL (8.5-10.1); Carbon Dioxide 23.9 mMol/L (20.0-31.0); Chloride 106 mMol/L (98-107); Creatinine (Component) 1.6 mg/dL (0.6-1.3); Estimated Creatinine Clearance 50.3 mL/min (>60); Globulin 3.0 gm/dL (2.3-3.5); Glucose 196 mg/dL (74-106); Osmolality,Calculated 290 (275-295); Potassium 4.4 mMol/L (3.4-5.1); Procalcitonin 0.05 ng/ml (0.0-0.49); Sodium 141 mMol/L (136-145); Total Protein 7.7 gm/dL (5.7-8.2); eGFR 47 See Note
[2025-01-07 13:26] LABS: Troponin I 0.069 ng/mL (0.0-0.045)
[2025-01-07 14:20] LABS: Lactate (Lactic Acid) 3.0 mMol/L (0.4-2.0)
--- NOTE | 2025-01-07 14:51 | PC.NURSE ---
Spoke to Dr Huff who states to hold off on Rocephin until admission orders are placed
--- NOTE | 2025-01-07 14:55 | ECHO_ITS ---
Patient Info Name: Rosa Foss Age: 69 years : 1955 Gender: Male Ht: 175 cm Wt: 95 kg BSA: 2.18 m2 BP: 137 / 106 mmHg HR: 105 bpm Exam Date: 01/08/2025 7:02 AM Admit Date: 01/07/2025 Site: [facility] Patient Status: I Technical Quality: Poor Exam Type: CA echo doppler complete Reason for Poor Study: poor echocardiographic windows Scenic Designer: Cecille Weber Ordering Physician: Omid Allen Study Info Indications CHF exacerbation - Primary Location: S2NX Left Ventricular Outflow Tract Name Value Normal LVOT 2D LVOT Diameter 1.8 cm LVOT Doppler LVOT Peak Velocity 55 cm/s LVOT Mean Gradient 1 mmHg LVOT VTI 11 cm LVOT VTI/AV VTI Ratio 1.0 LVOT Stroke Volume 28 ml Pulmonic Valve Name Value Normal PV Doppler PV Peak Velocity 79 cm/s Mitral Valve Name Value Normal MV Doppler MV Decel [place] 478 cm/s2 MV PHT 48 ms MV Area (PHT) 4.6 cm2 4.0-5.0 MV Diastolic Function MV E Peak Velocity 79 cm/s Tricuspid Valve Name Value Normal TV Regurgitation Doppler TR Peak Velocity 194 cm/s Estimated PAP/RSVP RA Pressure 15 mmHg <=5 PA Systolic Pressure 30 mmHg <36 RV Systolic Pressure 30 mmHg <36 Aortic Valve Name Value Normal AV 2D/MM AV Cusp Sep (MM) 1.3 cm AV Doppler AV Peak Velocity 78 cm/s AV Mean Gradient 1 mmHg AV VTI 11 cm AV Area (Cont Eq VTI) 2.6 cm2 >=3.0 AV Area (Cont Eq Carlos) 1.8 cm2 AV DI (Carlos) 0.70 AV Regurgitation 2D LVOT Area 2.5 cm2 Ventricles Name Value Normal LV Dimensions 2D/MM IVS Diastolic Thickness (2D) 1.0 cm 0.6-1.0 LVID Diastole (2D) 4.7 cm 4.2-5.8 LVIW Diastolic Thickness (2D) 1.1 cm 0.6-1.0 LVID Systole (2D) 4.1 cm 2.5-4.0 LVOT Diameter 1.8 cm LV Mass (2D Cubed) 175.83 g 88.00-224.00 LV Mass Index (2D Cubed) 81 g/m2 49-115 Relative Wall Thickness (2D) 0.47 <=0.42 IVS/LVIW Diastolic Thickness (2D) 0.91 0.00-1.50 LV Fractional Shortening/Ejection Fraction 2D/MM LV Fractional Shortening (2D) 13 % 25-43 LV EF (2D Teichholz) 27 % Left Ventricle Left ventricular chamber dimension is normal. Left ventricular systolic function is severely reduced with visually estimated ejection fraction of 20-25%. There is concentric remodeling noted in the left ventricle. Left ventricular segmental wall motion is normal. There is grade II diastolic dysfunction in the left ventricle. Right Ventricle Right ventricular chamber dimension is mildly enlarged. Right ventricular systolic function is reduced. Flattening of the ventricular septum in mid to late systole consistent with right ventricular volume overload. Left Atrium Left atrial chamber dimension is normal. Right Atrium Right atrial chamber dimension is mildly enlarged. Aortic Valve The aortic valve is trileaflet. There is no aortic valve sclerosis. There is no aortic valve stenosis with a peak velocity of 78 cm/s, mean gradient of 1 mmHg, and aortic valve area of 2.6 cm2. There is no aortic valve regurgitation. Pulmonic Valve The pulmonic valve is normal. There is no pulmonic valve stenosis. There is trace pulmonic regurgitation. Mitral Valve The mitral valve has normal leaflets. There is no mitral valve stenosis. There is mild mitral valve regurgitation. Tricuspid Valve The tricuspid valve leaflets are normal. There is no tricuspid valve stenosis. There is mild tricuspid valve regurgitation. No pulmonary hypertension, estimated pulmonary arterial systolic pressure is 30 mmHg and systemic blood pressure of 137 mmHg in systole. Pericardium/Pleural There is small pericardial effusion with no tamponade. No pleural effusion visualized. Inferior Vena Cava Not well visualized inferior vena cava with >50% collapse upon inspiration consistent with normal right atrial pressure, 15 mmHg. Aorta The aortic measurements are indexed to age and body surface area. The aortic root at the sinus of Valsalva is not well visualized. The prox ascending aorta is not well visualized. Summary 1. Heart Trasplant [address] [facility]. 2. Left ventricle size is normal and systolic function is severely reduced. Estimated ejection fraction is 20-25%. There is grade II diastolic dysfunction. 3. Right ventricle chamber size is mildly enlarged and systolic function is reduced. Estimated RVSP is 30 mmHg. Mild HTN. 4. There is mild mitral valve regurgitation. 5. There is mild tricuspid valve regurgitation. 6. trace pulmonic valve regurgitation. 7. The left atrium is normal. The right atrium is mildly enlarged. 8. Not well visualized IVC with estimated RA pressure 15 mmHg. 9. There is small pericardial effusion with no tamponade. Report Signatures Finalized by Gabino Newton on 01/09/2025 08:43 AM
[2025-01-07 15:03] LABS: Reflex Lactate? Y
[2025-01-07 15:12] VITALS: BP 132/86; PULSE 106
[2025-01-07] MEDS: BUMETANIDE INJ 0.25 MG/ML VIAL 4 ML 1 MG IVP (15:12)
--- NOTE | 2025-01-07 15:17 | ESHP_ITS ---
<Statement entered by Bakari Huff MD - 01/07/25 19:36> Note reviewed and agree with care plan as documented. Please refer to the note below for further details. Plan discussed with attending physician Bakari Huff MD PGY-2 Internal Medicine Documentation for date of: 01/07/25 HPI History of Present Illness History of present illness: 69-year-old male with a past medical history of heart transplant (at [facility] [address] Moise Hou, on immunosuppression), CHF (followed by Dr. Newton outpatient), T2DM, HLD, and GERD who comes in after PCP sent him to [facility] due to concerns for unresolving pneumonia as seen on imaging obtained outpatient. He endorses associated worsening bilateral lower extremity edema and orthopnea approximately over the last few days to week. Per patient, he is on lasix at home but due to worsening renal function it was held. Denies shortness of breath, chest pain/tightness, palpitations. Denies any recent sick contacts but endorses mild coughing of yellow sputum for the last few days. Of note, states that there are months when he does not need to take lasix as he does not have edema and dry weight is presumed to be approximately 195-200 lbs but is currently around 210 lbs. His heart transplant was done approximately 8 years ago at [facility] for presumed significant coronary artery disease and after presenting at that time he received a heart transplant one month later. He has been following Dr. Moise Hou but has been unable to see him due to insurance issues for the last 1.5 years. 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 Additionally, a visit on 09/2024 for chest pain and heaviness prompted a cardiac catheterization which yielded mildly reduced left and systolic dysfunction; EF ~45%. LAD midsegment 40% lesion but otherwise normal appearance in other coronary arteries. No stenting was done and patient was opted for medical management. In the ED, initial vitals showed pulse of 123 but breathing on room air and afebrile. CBC showed no leukocytosis, stable hemoglobin. CHEM panel showed creatinine 1.6 (baseline fluctuates between 1-1.5), GFR 47, glucose 196, lactate 3.0 (downtrending to 1.1), troponin 0.069, BNP 1119. Pro-Alexandre within normal limits influenza A/B and COVID-negative. CXR shows mild pneumonia both bases, small to moderate right pleural effusion, moderate vascular congestion. EKG shows sinus tachycardia and old incomplete RBBB. Cardiology was consulted in the ED and recommended patient to be admitted for close monitoring of renal function while being diuresed. Admitted for management of CHF exacerbation and pneumonia. 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 PSHx: heart transplant Review of Systems Review of Systems Systems Reviewed: All systems reviewed, normal except as documented Constitutional Constitutional: Reports system reviewed and no additional complaints, except as documented Past Medical History Past Medical History OTHER HISTORY: Positive Organ Transplant (Cardiac Transplant ~ 2016) Surgical History SURGICAL: Positive Organ Transplant (Cardiac Transplant ~ 2016) Social History SUBSTANCE USE: former substance user (Methemphetamine for 1 year ~1986) Exam Vital Signs Temp Pulse Resp BP Pulse Ox O2 Del Method 98.0 F 106 H 19 132/86 H 95 Room Air 01/07/25 13:00 01/07/25 15:12 01/07/25 13:00 01/07/25 15:12 01/07/25 13:00 01/07/25 13:00 Constitutional Constitutional: no acute distress Routine HEENT Exam Head: Present normocephalic Eye: Present EOMI Routine Neck Exam Neck: Present supple and full ROM Routine Respiratory Exam Respiratory: Present lungs clear, normal breath sounds and no resp distress Routine Cardiovascular Exam Cardiovascular: Present RRR Routine Extremities Exam Comments: Bilateral +2 pitting edema on both extremities. Normal skin color and quality. Results: Labs 01/08/25 05:39 01/08/25 05:39 Labs: Short CBC 01/07/25 Range/Units 11:54 WBC 6.4 (3.8-10.6) Thou/mm3 Hgb 12.2 L (13.5-16.0) g/dL Hct 39.7 L (41.0-53.0) % Plt Count 202 (140-440) Thou/mm3 BMP 01/07/25 11:54 Sodium 141 Potassium 4.4 Chloride 106 Carbon Dioxide 23.9 BUN 26 H Creatinine 1.6 H Glucose 196 H Calcium 9.7 Cardiac Enzymes 01/07/25 Range/Units 11:54 Troponin I 0.069 H* (0.0-0.045) ng/mL Liver Function 01/07/25 Range/Units 11:54 Total Bilirubin 1.0 (0.3-1.2) mg/dL AST 14 (0-34) U/L ALT 22 (10-49) U/L Alkaline Phosphatase 122 H (46-116) U/L Albumin 4.7 (3.4-4.8) gm/dL Quality Measures Quality Measures VTE prophylaxis (enoxaparin 40 q24) Advance care planning discussed with:: patient (full code) Medications Home Medications and Allergies Home Medications ?Medication ?Instructions ?Recorded ?Confirmed ?Type omeprazole 20 mg capsule,delayed 20 mg PO QDAY ##0 01/07/25 History release insulin aspart U-100 100 unit/mL 10 unit subcut TID 01/07/25 History (3 mL) subcutaneous pen (Novolog FlexPen U-100 Insulin aspart) insulin glargine 100 unit/mL 26 unit subcut QPM 01/07/25 History subcutaneous solution (Lantus U-100 Insulin) tacrolimus 1 mg capsule, 3 mg PO Q12H 08/21/19 History immediate-release (Prograf) gabapentin 100 mg capsule 50 mg PO DAILY 12/31/1904/02 History prednisolone 5 mg tablet 5 mg PO QDAY 12/31/19 History liraglutide 0.6 mg/0.1 mL (18 mg/3 1.2 mg subcut QDAY 06/14/21 01/07/25 History mL) subcutaneous pen injector (Victoza 2-Jose Guadalupe) rosuvastatin 20 mg tablet 5 mg PO DAILY 09/24/2401/07 History sirolimus 0.5 mg tablet 1 mg PO Q12H 09/24/24 History amoxicillin 875 mg-potassium 1 tab PO Q12H 01/07/25 History clavulanate 125 mg tablet tacrolimus 0.5 mg capsule, 0.5 mg PO Q12H 01/07/2504/02 History immediate-release tramadol 50 mg tablet 50 mg PO DAILY PRN pain 04/0201/07/25 History amlodipine 5 mg tablet 5 mg PO DAILY 01/08/2501/08 History carvedilol 6.25 mg tablet 6.25 mg PO BID 01/08/2504/30 History Allergies Allergy/AdvReac Type Severity Reaction Status Date / Time No Known Allergies Allergy Verified 01/07/25 10:52 Visit Medications Acetaminophen (Acetaminophen 325 Mg Tablet) 650 mg PO Q6H PRN PRN Reason: PAIN (1-3) OR FEVER > 100.4 Stop: 02/06/25 14:45 Bumetanide (Bumetanide Inj 0.25 Mg/Ml Vial 4 Ml) 1 mg IVP QDAY [facility] Stop: 02/06/25 14:59 Last Admin: 01/07/25 15:12 Dose: 1 mg Enoxaparin Sodium (Enoxaparin Sod Inj 40 Mg/0.4 Ml Syringe) 40 mg SC QDAY [facility] Stop: 01/22/25 08:59 Levofloxacin/Dextrose (Levaquin Ivpb) 750 mg in 150 mls @ 100 mls/hr IV QDAY JACKIE Stop: 01/15/25 08:59 Ondansetron HCl (Ondansetron Inj 2 Mg/Ml Inj 2 Ml) 4 mg IVP Q6H PRN; Protocol PRN Reason: NAUSEA OR VOMITING Stop: 02/06/25 14:51 Pharmacy Consult (Pharmacy Renal Dose Adjustment 1 Ea) 1 each XX PRN PRN PRN Reason: CONSULT Stop: 02/06/25 15:04 Discontinued Medications Ceftriaxone Sodium/Dextrose (Rocephin/D5w 1gm Iv Premix) 1 gm in 50 mls @ 100 mls/hr IV X1 ONE Stop: 01/07/25 14:15 Assessment & Plan Problem List (1) History of heart transplant: Status: Acute (2) Congestive heart failure: Qualifiers: Heart failure chronicity: unspecified Heart failure type: unspecified Qualified Code(s): I50.9 - Heart failure, unspecified Status: Acute (3) Diabetes mellitus: Qualifiers: Diabetes mellitus complication detail: with other kidney complication D iabetes mellitus complication status: with kidney complications Diabetes mellitus intermediate insulin use: with branch or department chief librarian use Diabetes mellitus type: type 2 Qualified Code(s): E11.29 - Type 2 diabetes mellitus with other diabetic kidney complication; Z79.4 - 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 insulin Status: Acute (4) CHF (congestive heart failure): Qualifiers: Heart failure chronicity: unspecified Heart failure type: unspecified Qualified Code(s): I50.9 - Heart failure, unspecified Status: Acute (5) HENRRY (acute kidney injury): Status: Acute (6) Pneumonia: Qualifiers: Laterality: unspecified laterality Lung location: unspecified part of lung Pneumonia type: due to unspecified organism Qualified Code(s): J18.9 - Pneumonia, unspecified organism Status: Acute Plan 69-year-old male with a past medical history of heart transplant (at [facility] [address] Moise Hou, on immunosuppression), CHF (followed by Dr. Newton outpatient), T2DM, HLD, and GERD who is admitted for CHF exacerbation and treatment for pneumonia. #Acute decompensated heart failure exacerbation #Congestive heart failure #NSTEMI type II, demand ischemia #Sinus tachycardia Hx of heart transplant on immunosuppression since 2017 Increasing bilateral lower extremity edema for the past 3 days +2 Pitting edema BLLE 01/07 BNP 1119 pg/mL 01/07 Troponin 0.069 ng/mL and downtrended VSS ? Cardiology consulted, appreciate recs ? Bumex 1 mg IV daily ? Strict I/O, fluid restriction (1.5 L daily), daily weights ? Follow up echo ? Keep Mg > 2, K > 4 #Community-acquired pneumonia 3 day history of cough with yellow sputum production. On immunosuppressive medications s/p transplant, thus low threshold for pneumonia suspicion despite afebrile and VSS. ? Levoquine 750 mg q24 (01/08-) ? Follow-up blood cultures #Chronic kidney disease #Acute on chronic kidney injury Baseline creatinine and GFR appear to have significant fluctuations but PCP held lasix in light of worsening renal function. Given that patient is on nephrotoxic drugs in conjunction with HENRRY, will consult nephrology. ? Nephrology consulted, appreciate recommendations ? Renally dose medications ? When possible, avoid nephrotoxic agents ? Consulted pharmacy regarding Levoquine dosing, 750mg q 24 okay given creatinine clearance rate #History of heart transplant History of heart transplant [address] Moise Hou at [facility] and patient unclear of exact reason why but suspect to be due to severe CAD at that time. Follows Dr. 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 ? Resume home immunosuppression medication regimen ? Tacrolimus 1.0 mg BID + Tacrolimus 0.5 mg BID (confirmed by patient) ? Sirolimus 0.5 mg BID ? Prednisone 5 mg daily #Type 2 diabetes mellitus, insulin-dependent On insulin glargine aspart at home ? SSI ? Hypoglycemic protocol in place ? Follow-up A1c #Hyperlipidemia ? Resumed home rosuvastatin 5 mg daily ? Follow-up lipid panel Hospital management: Disposition: diuresis, IV antibiotics for PNA Diet: low sodium Lines: PIV DVT prophylaxis: lovenox GI prophylaxis: pantoprazole 40 mg daily Zelaya: not indicated CODE STATUS: full code ----- Plan discussed with attending physician Dr. Jay Allen, PGY-1 Attending Provider Attestation/Addendum I, Nazanin Thompson, , attest that I was physically present for the price portions of the service and evaluated the patient with the resident and I reviewed and discussed the case with the resident and agree with the resident's findings and plans of care as documented above Patient is a 69-year-old male with past medical history of heart transplant about 8 years ago at [facility], CHF, type 2 diabetes mellitus, hyperlipidemia, GERD, valley fever who presents to the ED due to worsening shortness of breath for the past month. Patient states that he has been on 2 different antibiotic regimens including azithromycin and and amoxicillin. He endorses having fevers, chills, productive sputum and cough. He denies any active chest pain. He states that he does take diuretics at home due to intermittent bilateral lower extremity edema, but does not take it frequently. Patient was lost to follow-up at [facility] for post heart transplant follow-up due to lack of insurance. He has been following cardiology outpatient underwent a cardiac cath on 09/24/2024 during which patient was found to have an ejection fraction of 45% and LAD with a 40% lesion. Patient reports having worsening CORDERO in the past few weeks. On presentation to the ED, patient is tachycardic and on 2 L nasal cannula. Chest x-ray was done showing mild pneumonia in both bases as well as small to moderate right pleural effusion. On exam, patient is noted to have 3+ pitting edema bilateral lower extremities. Patient is in no acute respiratory distress. He endorsed having some fevers and chills at home as well. Will admit patient to telemetry for further workup and medical management of acute hypoxic respiratory failure secondary to acute CHF exacerbation versus community-acquired pneumonia. Since patient is immunosuppressed on antirejection medications, will cover for Pseudomonas with levofloxacin in addition to atypical bacteria. He is noted to have an elevated BNP of 1119. Will obtain echocardiogram and consult cardiology. Will obtain strict I's and O's. Will start on Bumex IV daily. Will track daily weights.
[2025-01-07 15:21] LABS: Lactic Acid, 3 HR 1.1 mMol/L (0.4-2.0)
[2025-01-07 15:57] VITALS: BP 132/86; PULSE 103; RESP 18; TEMP 37; O2SAT 96
[2025-01-07 18:19] LABS: Troponin I 0.064 ng/mL (0.0-0.045)
--- NOTE | 2025-01-07 18:21 | PC.NURSE ---
hand off report given to Chanel Jaquez from Telemetry. Pt is alert and oriented, aware of transfer to 2nd floor for admission. VSS, no s/s of distress noted. All belongings gathered and sent with patient.
[2025-01-07 18:26] VITALS: BP 135/86; PULSE 108; RESP 18; TEMP 36.7; O2SAT 96
[2025-01-07 20:00] VITALS: BP 133/98; PULSE 106; PULSE 108; RESP 17; TEMP 36.5; O2SAT 95
[2025-01-07] MEDS: TACROLIMUS 0.5 MG CAPSULE PO (21:03)
[2025-01-07] MEDS: TACROLIMUS 1 MG CAPSULE PO (21:03)
[2025-01-07] MEDS: ACETAMINOPHEN 325 MG TABLET 650 MG PO (21:04)
[2025-01-07] MEDS: INSULIN LISPRO (AdmeLOG) 1 UNIT/0.01 ML UNIT SC (21:29)
[2025-01-08] VITALS (8 sets, daily range): BP systolic 108–141; BP diastolic 70–106; PULSE 100–127; RESP 12–25; TEMP 36.1–36.4; O2SAT 93–96; BMI 31.1
[2025-01-08 06:19] LABS: Basophils # (Auto) 0.0 Thou/mm3 (0.0-0.2); Basophils % (Auto) 1 % (0-2.5); Eosinophils # (Auto) 0.1 Thou/mm3 (0.0-0.5); Eosinophils % (Auto) 2 % (0-10); Hematocrit 40.7 % (41.0-53.0); Hemoglobin 12.8 g/dL (13.5-16.0); Immature Granulocytes Auto 0.01 Thou/mm3 (0.00-0.00); Lymphocytes # (Auto) 0.7 Thou/mm3 (1.0-4.8); Lymphocytes % (Auto) 14 % (10-50); Mean Corpuscular HGB Conc 31.4 g/dl (31.0-37.0); Mean Corpuscular Hemoglobin 26.3 pg (25.0-35.0); Mean Corpuscular Volume 84 fL (80-100); Monocytes # (Auto) 0.6 Thou/mm3 (0.0-0.8); Monocytes % (Auto) 11 % (0-12); Neutrophils # (Auto) 3.7 Thou/mm3 (1.8-7.7); Neutrophils % (Auto) 72 % (37-80); Nucleated Red Blood Cell # 0.00 Thou/mm3 (0.00-0.00); Nucleated Red Blood Cell % 0 /100 WBC (0); Platelet Count 183 Thou/mm3 (140-440); RDW Standard Deviation 51.4 fL (35.1-43.9); Red Blood Count 4.86 Miln/mm3 (4.50-5.90); White Blood Count 5.2 Thou/mm3 (3.8-10.6)
[2025-01-08 06:49] LABS: Glucose Estimated Average 240 mg/dL (80-131); Hemoglobin A1C 10.0 % Hgb (4.8-6.0)
[2025-01-08 06:56] LABS: Anion Gap 14 (7-16); BUN/Creatinine Ratio 18 Ratio (12-20); Blood Urea Nitrogen 28 mg/dL (9-23); Calcium 9.6 mg/dL (8.3-10.6); Carbon Dioxide 24.4 mMol/L (20.0-31.0); Cardiac Risk Estimate 5.9 RATIO (4.0-6.7); Chloride 103 mMol/L (98-107); Cholesterol 189 mg/dL (132-200); Creatinine (Component) 1.6 mg/dL (0.6-1.3); Estimated Creatinine Clearance 50.3 mL/min (>60); Glucose 234 mg/dL (74-106); HDL Cholesterol 32 mg/dL (40-60); LDL Cholesterol,Calculated 131 mg/dL (0-130); Magnesium 1.2 mg/dL (1.6-2.6); Osmolality,Calculated 294 (275-295); Phosphorous 3.6 mg/dL (2.4-5.1); Potassium 4.2 mMol/L (3.4-5.1); Sodium 141 mMol/L (136-145); Thyroid Stimulating Hormone 1.04 uIU/mL (0.55-4.78); Triglycerides 130 mg/dL (30-150); eGFR 47 See Note
[2025-01-08] MEDS: INSULIN LISPRO (AdmeLOG) 1 UNIT/0.01 ML UNIT SC ×3 (07:44→17:10)
[2025-01-08] MEDS: BUMETANIDE INJ 0.25 MG/ML VIAL 4 ML 1 MG IVP ×2 (08:24→17:11)
[2025-01-08] MEDS: PANTOPRAZOLE 40 MG TABLET PO (08:25)
[2025-01-08] MEDS: ENOXAPARIN SOD INJ 40 MG/0.4 ML SYRINGE SC (08:25)
[2025-01-08] MEDS: ATORVASTATIN CALCIUM 20 MG TABLET PO (08:25)
[2025-01-08] MEDS: TACROLIMUS 1 MG CAPSULE PO ×2 (08:26→20:37)
[2025-01-08] MEDS: Magnesium Sulfate 4 GM Ivpb 4 GM/50 ML BAG IV (08:32)
[2025-01-08] MEDS: TACROLIMUS 0.5 MG CAPSULE PO ×2 (08:32→20:37)
--- NOTE | 2025-01-08 09:06 | PD.RESHP ---
Documentation for date of: 01/08/25 HPI History of Present Illness History of present illness: Reason for consult: HENRRY History of present illness: 69-year-old male with a past medical history of heart transplant (at [facility] [address] Moise Hou, on immunosuppression), CHF (followed by Dr. Newton outpatient), T2DM, HLD, and GERD who comes in after PCP sent him to [facility] due to concerns for unresolving pneumonia as seen on imaging obtained outpatient. He endorses associated worsening bilateral lower extremity edema and orthopnea approximately over the last few days to week. Per patient, he is on lasix at home but due to worsening renal function it was held. Denies shortness of breath, chest pain/tightness, palpitations. Denies any recent sick contacts but endorses mild coughing of yellow sputum for the last few days. Of note, states that there are months when he does not need to take lasix as he does not have edema and dry weight is presumed to be approximately 195-200 lbs but is currently around 210 lbs. His heart transplant was done approximately 8 years ago at [facility] for presumed significant coronary artery disease and after presenting at that time he received a heart transplant one month later. He has been following Dr. Moise Hou but has been unable to see him due to insurance issues for the last 1.5 years. He also sees Dr. 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 Additionally, a visit on 09/2024 for chest pain and heaviness prompted a cardiac catheterization which yielded mildly reduced left and systolic dysfunction; EF ~45%. LAD midsegment 40% lesion but otherwise normal appearance in other coronary arteries. No stenting was done and patient was opted for medical management. Admitted for management of CHF exacerbation and pneumonia. 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 PSHx: heart transplant Exam Vital Signs Temp Pulse Resp BP Pulse Ox O2 Del Method 97.0 F 117 H 25 H 136/98 H 96 Room Air 01/08/25 08:00 01/08/25 08:24 01/08/25 08:00 01/08/25 08:24 01/08/25 08:00 01/08/25 08:00 Results: Labs 01/08/25 05:39 01/08/25 05:39 Labs: Short CBC 01/07/25 01/08/25 Range/Units 11:54 05:39 WBC 6.4 5.2 (3.8-10.6) Thou/mm3 Hgb 12.2 L 12.8 L (13.5-16.0) g/dL Hct 39.7 L 40.7 L (41.0-53.0) % Plt Count 202 183 (140-440) Thou/mm3 BMP 01/07/25 01/08/25 11:54 05:39 Sodium 141 141 Potassium 4.4 4.2 Chloride 106 103 Carbon Dioxide 23.9 24.4 BUN 26 H 28 H Creatinine 1.6 H 1.6 H Glucose 196 H 234 H Calcium 9.7 9.6 Cardiac Enzymes 01/07/25 01/07/25 Range/Units 11:54 17:47 Troponin I 0.069 H* 0.064 H* (0.0-0.045) ng/mL Liver Function 01/07/25 Range/Units 11:54 Total Bilirubin 1.0 (0.3-1.2) mg/dL AST 14 (0-34) U/L ALT 22 (10-49) U/L Alkaline Phosphatase 122 H (46-116) U/L Albumin 4.7 (3.4-4.8) gm/dL Quality Measures Quality Measures none Medications Home Medications and Allergies Home Medications ?Medication ?Instructions ?Recorded ?Confirmed ?Type omeprazole 20 mg capsule,delayed 20 mg PO QDAY ##0 04/21/16 01/07/25 History release insulin aspart U-100 100 unit/mL 10 unit subcut TID 08/20/19 01/07/25 History (3 mL) subcutaneous pen (Novolog FlexPen U-100 Insulin aspart) insulin glargine 100 unit/mL 26 unit subcut QPM 08/20/19 01/07/25 History subcutaneous solution (Lantus U-100 Insulin) tacrolimus 1 mg capsule, 3 mg PO Q12H 08/21/19 01/07/25 History immediate-release (Prograf) gabapentin 100 mg capsule 50 mg PO DAILY 12/31/19 01/07/25 History prednisolone 5 mg tablet 5 mg PO QDAY 12/31/19 01/07/25 History liraglutide 0.6 mg/0.1 mL (18 mg/3 1.2 mg subcut QDAY 06/14/21 01/07/25 History mL) subcutaneous pen injector (Victoza 2-Jose Guadalupe) rosuvastatin 20 mg tablet 5 mg PO DAILY 09/24/24 01/07/25 History sirolimus 0.5 mg tablet 1 mg PO Q12H 09/24/24 01/07/25 History amoxicillin 875 mg-potassium 1 tab PO Q12H 01/07/25 01/07/25 History clavulanate 125 mg tablet tacrolimus 0.5 mg capsule, 0.5 mg PO Q12H 01/07/25 01/07/25 History immediate-release tramadol 50 mg tablet 50 mg PO DAILY PRN pain 01/07/25 01/07/25 History amlodipine 5 mg tablet 5 mg PO DAILY 01/08/25 01/08/25 History carvedilol 6.25 mg tablet 6.25 mg PO BID 01/08/25 01/08/25 History Allergies Allergy/AdvReac Type Severity Reaction Status Date / Time No Known Allergies Allergy Verified 01/07/25 10:52 Visit Medications Acetaminophen (Acetaminophen 325 Mg Tablet) 650 mg PO Q6H PRN PRN Reason: PAIN (1-3) OR FEVER > 100.4 Stop: 02/06/25 14:45 Last Admin: 01/07/25 21:04 Dose: 650 mg Atorvastatin Calcium (Atorvastatin Calcium 20 Mg Tablet) 20 mg PO DAILY [facility]; Protocol Stop: 02/07/25 08:59 Last Admin: 01/08/25 08:25 Dose: 20 mg Bumetanide (Bumetanide Inj 0.25 Mg/Ml Vial 4 Ml) 1 mg IVP QDAY [facility] Stop: 02/06/25 14:59 Last Admin: 01/08/25 08:24 Dose: 1 mg Sirolimus 0.5 Mg (Tablet) 0 ea PO QDAY [facility] Stop: 02/06/25 20:59 Last Admin: 01/08/25 08:40 Dose: 2 tablet Dextrose (Dextrose 50%-Water Inj 50 Ml Syringe) 25 ml IV Q15MIN PRN PRN Reason: BG 50-70 responsive npo pt Stop: 02/06/25 15:27 Dextrose (Dextrose 50%-Water Inj 50 Ml Syringe) 50 ml IV Q15MIN PRN PRN Reason: BG <50 OR BG <70 & pt unresponsive Stop: 02/06/25 15:27 Enoxaparin Sodium (Enoxaparin Sod Inj 40 Mg/0.4 Ml Syringe) 40 mg SC QDAY [facility] Stop: 01/22/25 08:59 Last Admin: 01/08/25 08:25 Dose: 40 mg Glucagon (Glucagon Inj 1 Mg Vial) 1 mg IM Q15MIN PRN PRN Reason: BG <70, and no IV access Levofloxacin/Dextrose (Levaquin Ivpb) 750 mg in 150 mls @ 100 mls/hr IV QDAY [facility] Stop: 01/15/25 15:29 Magnesium Sulfate (Magnesium Sulfate Ivpb) 4 gm in 50 mls @ 12.5 mls/hr IV X1 ONE Stop: 01/08/25 11:59 Last Admin: 01/08/25 08:32 Dose: 12.5 mls/hr Insulin Human Lispro (Insulin Lispro (Admelog) 1 Unit/0.01 Ml Unit) 0 unit SC ACHS [facility]; Protocol Stop: 02/06/25 21:14 Ondansetron HCl (Ondansetron Inj 2 Mg/Ml Inj 2 Ml) 4 mg IVP Q6H PRN; Protocol PRN Reason: NAUSEA OR VOMITING Stop: 02/06/25 14:51 Pantoprazole Sodium (Pantoprazole 40 Mg Tablet) 40 mg PO QDAY [facility] Stop: 02/07/25 08:59 Last Admin: 01/08/25 08:25 Dose: 40 mg Pharmacy Consult (Pharmacy Renal Dose Adjustment 1 Ea) 1 each XX PRN PRN PRN Reason: CONSULT Stop: 02/06/25 15:04 Prednisone (Prednisone 5 Mg Tablet) 5 mg PO QDAY [facility] Stop: 02/07/25 08:59 Last Admin: 01/08/25 08:25 Dose: 5 mg Tacrolimus (Tacrolimus 1 Mg Capsule) 1 mg PO Q12H [facility] Stop: 02/06/25 20:59 Last Admin: 01/08/25 08:26 Dose: 1 mg Tacrolimus (Tacrolimus 0.5 Mg Capsule) 0.5 mg PO Q12H [facility] Stop: 02/06/25 21:29 Last Admin: 01/08/25 08:32 Dose: 0.5 mg Discontinued Medications Sirolimus 0.5 Mg (Tablet) 0 ea PO Q12HR JACKIE Stop: 02/06/25 20:59 Last Admin: 01/07/25 21:13 Dose: Not Given Ceftriaxone Sodium/Dextrose (Rocephin/D5w 1gm Iv Premix) 1 gm in 50 mls @ 100 mls/hr IV X1 ONE Stop: 01/07/25 14:15 Last Admin: 01/07/25 15:17 Dose: Not Given Magnesium Sulfate (Magnesium Sulfate Ivpb) 2 gm in 50 mls @ 25 mls/hr IV X1 ONE Stop: 01/08/25 09:48 Insulin Human Lispro (Insulin Lispro (Admelog) 1 Unit/0.01 Ml Unit) 0 unit SC AC [facility]; Protocol Stop: 02/06/25 16:59 Last Admin: 01/07/25 16:17 Dose: Not Given Insulin Human Lispro (Insulin Lispro (Admelog) 1 Unit/0.01 Ml Unit) 0 unit SC ACHS [facility]; Protocol Stop: 02/06/25 21:14 Last Admin: 01/08/25 07:44 Dose: 2 unit
--- NOTE | 2025-01-08 09:10 | PD.IMCONS ---
HPI Data of Consult Requesting Physician: Nazanin Thompson DO Primary Care Provider: Jordan Vyas MD Consult Narrative History of present illness: This is a 69-year-old male with a past medical history of heart transplant (at [facility] [address] Moise Hou, on immunosuppression), CHF known to me as out pt : DM/HLD/ GERD pt seen in the ER with edema / orthopnoea pt has out pt evaluation for pneumonia noted to have elevated creatinine heart cath last year no significant diseases cc:: cc: Nazanin Thompson, DO Meds Home Medications and Allergies Home Medications ?Medication ?Instructions ?Recorded ?Confirmed ?Type omeprazole 20 mg capsule,delayed 20 mg PO QDAY ##0 04/21/16 01/07/25 History release insulin aspart U-100 100 unit/mL 10 unit subcut TID 08/20/19 01/07/25 History (3 mL) subcutaneous pen (Novolog FlexPen U-100 Insulin aspart) insulin glargine 100 unit/mL 26 unit subcut QPM 08/20/19 01/07/25 History subcutaneous solution (Lantus U-100 Insulin) tacrolimus 1 mg capsule, 3 mg PO Q12H 08/21/19 01/07/25 History immediate-release (Prograf) gabapentin 100 mg capsule 50 mg PO DAILY 12/31/19 01/07/25 History prednisolone 5 mg tablet 5 mg PO QDAY 12/31/19 01/07/25 History liraglutide 0.6 mg/0.1 mL (18 mg/3 1.2 mg subcut QDAY 06/14/21 01/07/25 History mL) subcutaneous pen injector (Victoza 2-Jose Guadalupe) rosuvastatin 20 mg tablet 5 mg PO DAILY 09/24/24 01/07/25 History sirolimus 0.5 mg tablet 1 mg PO Q12H 09/24/24 01/07/25 History amoxicillin 875 mg-potassium 1 tab PO Q12H 01/07/25 01/07/25 History clavulanate 125 mg tablet tacrolimus 0.5 mg capsule, 0.5 mg PO Q12H 01/07/25 01/07/25 History immediate-release tramadol 50 mg tablet 50 mg PO DAILY PRN pain 01/07/25 01/07/25 History amlodipine 5 mg tablet 5 mg PO DAILY 01/08/25 01/08/25 History carvedilol 6.25 mg tablet 6.25 mg PO BID 01/08/25 01/08/25 History Allergies Allergy/AdvReac Type Severity Reaction Status Date / Time No Known Allergies Allergy Verified 01/07/25 10:52 Exam Vital Signs Temp Pulse Resp BP Pulse Ox O2 Del Method 97.0 F 117 H 25 H 136/98 H 96 Room Air 01/08/25 08:00 01/08/25 08:24 01/08/25 08:00 01/08/25 08:24 01/08/25 08:00 01/08/25 08:00 Routine HEENT Exam Head: Present normocephalic and atraumatic Eye: Present EOMI and PERRL ENT: Present mucous membranes moist Routine Neck Exam Neck: Present supple and trachea midline Routine Respiratory Exam Respiratory: Present chest non-tender, lungs clear, normal breath sounds and no resp distress Routine Cardiovascular Exam Cardiovascular: Present RRR Routine Abdominal Exam Abdominal: Present soft and normoactive bowel sounds Routine Extremities Exam Extremities: Present full ROM Routine Skin Exam Skin: Present intact, dry and warm Routine Neurological Exam Neurological: Present alert, oriented X3 and CN II-XII intact Routine Psychiatric Exam Psychiatric: Present normal affect and normal thought process Results Labs 01/08/25 05:39 01/08/25 05:39 Labs: Short CBC 01/07/25 01/08/25 Range/Units 11:54 05:39 WBC 6.4 5.2 (3.8-10.6) Thou/mm3 Hgb 12.2 L 12.8 L (13.5-16.0) g/dL Hct 39.7 L 40.7 L (41.0-53.0) % Plt Count 202 183 (140-440) Thou/mm3 BMP 01/07/25 01/08/25 11:54 05:39 Sodium 141 141 Potassium 4.4 4.2 Chloride 106 103 Carbon Dioxide 23.9 24.4 BUN 26 H 28 H Creatinine 1.6 H 1.6 H Glucose 196 H 234 H Calcium 9.7 9.6 Cardiac Enzymes 01/07/25 01/07/25 Range/Units 11:54 17:47 Troponin I 0.069 H* 0.064 H* (0.0-0.045) ng/mL Liver Function 01/07/25 Range/Units 11:54 Total Bilirubin 1.0 (0.3-1.2) mg/dL AST 14 (0-34) U/L ALT 22 (10-49) U/L Alkaline Phosphatase 122 H (46-116) U/L Albumin 4.7 (3.4-4.8) gm/dL Assessment and Plan Assessment and plan (1) Pneumonia: Status: Acute (2) HENRRY (acute kidney injury): Status: Acute (3) CHF (congestive heart failure): Status: Acute (4) Diabetes mellitus: Status: Acute (5) History of heart transplant: Status: Acute Additional Assessment & Plan Additional Plan: continue current meds for immunosupression agree with treatment for pneumonia recommend echo (1) Pneumonia Qualifiers: Pneumonia type: due to unspecified organism Laterality: unspecified laterality Lung location: unspecified part of lung Qualified Code(s): J18.9 - Pneumonia, unspecified organism (3) CHF (congestive heart failure) Qualifiers: Heart failure type: unspecified Heart failure chronicity: unspecified Qualified Code(s): I50.9 - Heart failure, unspecified (4) Diabetes mellitus Qualifiers: Diabetes mellitus type: type 2 Diabetes 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
[2025-01-08 09:13] LABS: Procalcitonin 0.09 ng/ml (0.0-0.49)
--- NOTE | 2025-01-08 10:07 | ESCONSULT_ITS ---
HPI Data of Consult Consult date: 01/08/25 Requesting Physician: Nazanin Thompson DO Admitting Provider: Nazanin Thompson DO Attending Provider: Nazanin Thompson DO Primary Care Provider: oJrdan Vyas MD Consult Narrative Reason for consult: HENRRY on CKD History of present illness: 69-year-old male with a past medical history of heart transplant (at [facility] [address] Moise Hou, on immunosuppression), CHF (followed by Dr. Newton outpatient), T2DM, HLD, and GERD who comes in after PCP sent him to [facility] due to concerns for unresolving pneumonia as seen on imaging obtained outpatient. He endorses associated worsening bilateral lower extremity edema and orthopnea approximately over the last few days to week. Per patient, he is on lasix at home but due to worsening renal function it was held. Denies shortness of breath, chest pain/tightness, palpitations. Denies any recent sick contacts but endorses mild coughing of yellow sputum for the last few days. Of note, states that there are months when he does not need to take lasix as he does not have edema and dry weight is presumed to be approximately 195-200 lbs but is currently around 210 lbs. His heart transplant was done approximately 8 years ago at [facility] for presumed significant coronary artery disease and after presenting at that time he received a heart transplant one month later. He has been following Dr. Moise Hou but has been unable to see him due to insurance issues for the last 1.5 years. He also sees Dr. 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 Additionally, a visit on 09/2024 for chest pain and heaviness prompted a cardiac catheterization which yielded mildly reduced left and systolic dysfunction; EF ~45%. LAD midsegment 40% lesion but otherwise normal appearance in other coronary arteries. No stenting was done and patient was opted for medical management. 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 Nephrology consulted for HENRRY on CKD 3a. 01/08/25: Patient seen and examined at bedside. No complaints this morning, denies shortness of breath or chest pain. Reports that he has not followed up with his transplant specialist at [facility] for almost 2 years due to insurance issues. Also reports that he had symptoms of organ rejection 2 years ago. On exam patient had 3+ pitting edema extending up to his knees bilaterally. Creatinine 1.6 which appears within his baseline (1.2-1.8 since 2019). GFR 43 on admission, improved to 47 after Bumex 1 mg x2. BNP 1119 (baseline 100-300). Continue Bumex as renal function appears to be stable. cc:: cc: Nazanin Thompson, DO Exam Vital Signs Temp Pulse Resp BP Pulse Ox O2 Del Method 97.0 F 117 H 25 H 136/98 H 96 Room Air 01/08/25 08:00 01/08/25 08:24 01/08/25 08:00 01/08/25 08:24 01/08/25 08:00 01/08/25 08:00 Narrative Exam Physical Exam General: Awake and in no acute distress. Conversational and non-toxic appearing. HEENT: Normocephalic, atraumatic, mucous membranes moist. Heart: Regular rate and rhythm, normal S1 and S2, no murmurs appreciated. S urgical scars on chest and base of neck. Lungs: Mildly decreased breath sounds in right lower lobe, no wheezing, crackles, or rhonchi noted. Clear in all other lobes. Abdomen: Soft, nondistended, nontender, positive bowel sounds. No guarding or rebound tenderness. Neurologic: Alert and oriented x3, no gross neurological deficit, and patient able to move all 4 extremities. Extremities: 3+ pitting edema bilaterally extending up to knees. Skin: No rash or ecchymoses. Results Labs 01/09/25 05:24 01/09/25 05:24 Labs: Short CBC 01/07/25 01/08/25 Range/Units 11:54 05:39 WBC 6.4 5.2 (3.8-10.6) Thou/mm3 Hgb 12.2 L 12.8 L (13.5-16.0) g/dL Hct 39.7 L 40.7 L (41.0-53.0) % Plt Count 202 183 (140-440) Thou/mm3 BMP 01/07/25 01/08/25 11:54 05:39 Sodium 141 141 Potassium 4.4 4.2 Chloride 106 103 Carbon Dioxide 23.9 24.4 BUN 26 H 28 H Creatinine 1.6 H 1.6 H Glucose 196 H 234 H Calcium 9.7 9.6 Cardiac Enzymes 01/07/25 01/07/25 Range/Units 11:54 17:47 Troponin I 0.069 H* 0.064 H* (0.0-0.045) ng/mL Liver Function 01/07/25 Range/Units 11:54 Total Bilirubin 1.0 (0.3-1.2) mg/dL AST 14 (0-34) U/L ALT 22 (10-49) U/L Alkaline Phosphatase 122 H (46-116) U/L Albumin 4.7 (3.4-4.8) gm/dL Quality Measures Quality Measures none Advance care planning discussed with:: patient Medications Home Medications and Allergies Home Medications ?Medication ?Instructions ?Recorded ?Confirmed ?Type omeprazole 20 mg capsule,delayed 20 mg PO QDAY ##0 01/07/25 History release insulin aspart U-100 100 unit/mL 10 unit subcut TID 01/07/25 History (3 mL) subcutaneous pen (Novolog FlexPen U-100 Insulin aspart) tacrolimus 1 mg capsule, 3 mg PO Q12H 08/21/19 History immediate-release (Prograf) prednisolone 5 mg tablet 5 mg PO QDAY 12/31/19 History rosuvastatin 20 mg tablet 5 mg PO DAILY 09/24/2401/07 History sirolimus 0.5 mg tablet 1 mg PO Q12H 09/24/24 History amoxicillin 875 mg-potassium 1 tab PO Q12H 01/07/25 History clavulanate 125 mg tablet tacrolimus 0.5 mg capsule, 0.5 mg PO Q12H 01/07/2504/02 History immediate-release tramadol 50 mg tablet 50 mg PO DAILY PRN pain 04/0201/07/25 History amlodipine 5 mg tablet 5 mg PO DAILY 01/08/2501/08 History carvedilol 6.25 mg tablet 6.25 mg PO BID 01/08/25 12/04/30 History Allergies Allergy/AdvReac Type Severity Reaction Status Date / Time No Known Allergies Allergy Verified 01/07/25 10:52 Visit Medications Acetaminophen (Acetaminophen 325 Mg Tablet) 650 mg PO Q6H PRN PRN Reason: PAIN (1-3) OR FEVER > 100.4 Stop: 02/06/25 14:45 Last Admin: 01/07/25 21:04 Dose: 650 mg Atorvastatin Calcium (Atorvastatin Calcium 20 Mg Tablet) 20 mg PO DAILY [facility]; Protocol Stop: 02/07/25 08:59 Last Admin: 01/08/25 08:25 Dose: 20 mg Bumetanide (Bumetanide Inj 0.25 Mg/Ml Vial 4 Ml) 1 mg IVP QDAY [facility] Stop: 02/06/25 14:59 Last Admin: 01/08/25 08:24 Dose: 1 mg Sirolimus 0.5 Mg (Tablet) 0 ea PO QDAY [facility] Stop: 02/06/25 20:59 Last Admin: 01/08/25 08:40 Dose: 2 tablet Dextrose (Dextrose 50%-Water Inj 50 Ml Syringe) 25 ml IV Q15MIN PRN PRN Reason: BG 50-70 responsive npo pt Stop: 02/06/25 15:27 Dextrose (Dextrose 50%-Water Inj 50 Ml Syringe) 50 ml IV Q15MIN PRN PRN Reason: BG <50 OR BG <70 & pt unresponsive Stop: 02/06/25 15:27 Enoxaparin Sodium (Enoxaparin Sod Inj 40 Mg/0.4 Ml Syringe) 40 mg SC QDAY [facility] Stop: 01/22/25 08:59 Last Admin: 01/08/25 08:25 Dose: 40 mg Glucagon (Glucagon Inj 1 Mg Vial) 1 mg IM Q15MIN PRN PRN Reason: BG <70, and no IV access Levofloxacin/Dextrose (Levaquin Ivpb) 750 mg in 150 mls @ 100 mls/hr IV QDAY [facility] Stop: 01/15/25 15:29 Magnesium Sulfate (Magnesium Sulfate Ivpb) 4 gm in 50 mls @ 12.5 mls/hr IV X1 ONE Stop: 01/08/25 11:59 Last Admin: 01/08/25 08:32 Dose: 12.5 mls/hr Insulin Human Lispro (Insulin Lispro (Admelog) 1 Unit/0.01 Ml Unit) 0 unit SC [facility], [facility]; Protocol Stop: 02/06/25 21:14 Metoprolol Succinate (Metoprolol Succinate Xl 25 Mg Tabcr) 25 mg PO QDAY [facility] Stop: 02/08/25 08:59 Ondansetron HCl (Ondansetron Inj 2 Mg/Ml Inj 2 Ml) 4 mg IVP Q6H PRN; Protocol PRN Reason: NAUSEA OR VOMITING Stop: 02/06/25 14:51 Pantoprazole Sodium (Pantoprazole 40 Mg Tablet) 40 mg PO QDAY [facility] Stop: 02/07/25 08:59 Last Admin: 01/08/25 08:25 Dose: 40 mg Pharmacy Consult (Pharmacy Renal Dose Adjustment 1 Ea) 1 each XX PRN PRN PRN Reason: CONSULT Stop: 02/06/25 15:04 Prednisone (Prednisone 5 Mg Tablet) 5 mg PO QDAY [facility] Stop: 02/07/25 08:59 Last Admin: 01/08/25 08:25 Dose: 5 mg Tacrolimus (Tacrolimus 1 Mg Capsule) 1 mg PO Q12H [facility] Stop: 02/06/25 20:59 Last Admin: 01/08/25 08:26 Dose: 1 mg Tacrolimus (Tacrolimus 0.5 Mg Capsule) 0.5 mg PO Q12H [facility] Stop: 02/06/25 21:29 Last Admin: 01/08/25 08:32 Dose: 0.5 mg Discontinued Medications Sirolimus 0.5 Mg (Tablet) 0 ea PO Q12HR [facility] Stop: 02/06/25 20:59 Last Admin: 01/07/25 21:13 Dose: Not Given Ceftriaxone Sodium/Dextrose (Rocephin/D5w 1gm Iv Premix) 1 gm in 50 mls @ 100 mls/hr IV X1 ONE Stop: 01/07/25 14:15 Last Admin: 01/07/25 15:17 Dose: Not Given Magnesium Sulfate (Magnesium Sulfate Ivpb) 2 gm in 50 mls @ 25 mls/hr IV X1 ONE Stop: 01/08/25 09:48 Insulin Human Lispro (Insulin Lispro (Admelog) 1 Unit/0.01 Ml Unit) 0 unit SC AC [facility], [facility]; Protocol Stop: 02/06/25 16:59 Last Admin: 01/07/25 16:17 Dose: Not Given Insulin Human Lispro (Insulin Lispro (Admelog) 1 Unit/0.01 Ml Unit) 0 unit SC [facility]; Protocol Stop: 02/06/25 21:14 Last Admin: 01/08/25 07:44 Dose: 2 unit Assessment & Plan Plan Patient is a 69 year old male with past medical history of heart transplant (at [facility] [address] Moise Hou, on immunosuppression), HFmrEF (EF 45%), remote hx of prostate cancer s/p radiation, T2DM, HLD, and GERD who was admitted 01/07/25 for CHF exacerbation and PNA. Nephrology consulted for HENRRY on CKD 3a. #HENRRY on CKD 3a #Hx heart transplant 03/10 dilated cardiomyopathy - Patient reports that he has been taking Lasix 40 daily for the past month for worsening lower extremity edema but was discontinued 10 days ago by PCP due to mild HENRRY. Only takes Lasix intermittently based on weight and swelling. - Patient also has history of heart transplant at [facility] in 2017 as a result of worsening dilated cardiomyopathy. Reports symptoms of organ rejection about 2 years ago and has not been able to follow up with his transplant specialist for at least 1.5 years. On low dose tacrolimus, sirolimus, and prednisone. - Appears hypervolemic on exam with 3+ pitting edema in lower extremities. - Cr 1.6 on admission which appears to be his baseline (1.2-1.8 since 2019). - GFR 43 -> 47, improved after Bumex. Baseline 51 to greater than 60. - BNP 1119 (baseline 100-300s). - Likely secondary to fluid overload from CHF exacerbation iso of PNA. Tacrolimus use may also contribute to worsening renal function and there is also concern for cardiac allograft vasculopathy. Plan: - Continue Bumex 1 mg as patient appears fluid overloaded. 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 Discussed with patient importance of urgent follow up with [facility] transplant specialist to rule out CAV after insurance approval. #Acute decompensated heart failure exacerbation #Congestive heart failure #NSTEMI type II, demand ischemia #Sinus tachycardia #Community-acquired pneumonia #History of heart transplant #Type 2 diabetes mellitus, insulin-dependent #Hyperlipidemia Thank you for your consultation, please do not hesitate to reach out if you have any question or concern. Patient plan of care was discussed with the attending physician, Dr. Ronquillo. Martha Fisher DO, PGY-1 Attending Provider Attestation/Addendum Patient currently seen and examined with resident physician Dr. Fisher. Note reviewed, agree with findings and recommendations. Patient currently seen in telemetry. Madeline, my patient at bedside. Patient has significant edema-not quite sure if he has congestive heart failure versus related to chronic allograft rejection. Last seen in the heart transplant center 2 years ago. Recommended to go and see them after discharge. Agree with the diuretics. Patient will be left with some kidney impairment. Care discussed with primary team.
--- NOTE | 2025-01-08 13:52 | ESPR_ITS ---
<Statement entered by Bakari Huff MD - 01/08/25 13:53> No acute overnight events. Seen and examined at bedside and patient was resting comfortably in bed. Denies any shortness of breath or chest discomfort. On exam, continues to have 2+ bilateral lower extremity edema that goes up to his thighs but lungs were clear to auscultation though slightly diminished lung sounds at the bases. Will change Bumex from daily to BID and asked nurses to document I's and O's and continue to monitor. Continuing IV antibiotics for commune acquired pneumonia coverage as well as Pseudomonas given immunocompromise state. Pending echo read and nephrology recommendations. ----- Note reviewed and agree with care plan as documented. Please refer to the note below for further details. Plan discussed with attending physician Dr. Jay Huff MD PGY-2 Internal Medicine Documentation for date of: 01/08/25 Subjective Subjective Interval history: VSS NAEO, Mr. Foss is in good spirits this morning and understands the plan to continue diuresis. He has not had any trouble urinating while on bumex and does not endorse any chest pain, shortness of breath, fever, palpitations or cardiopulmonary symptoms. He continues to have +2 pitting edema and has been ambulatory. His partner Malissa is at bedside and findings and plans were discussed with both her and MDr. Foss. Dr. Newton(cardiology) contacted, pending echo review. Additionally, pt started on dapagliflozin 10mg qdaily. Metoprolol succinate 25mg PO q24h initiated for HTN, tachycardia. Bumex increased to 1mg BID Nephrology consulted regarding tacrolimus sirolimus dosing, okay to continue current regimen given Creatinine clearance ~50 Mr. Foss' HbA1c resulted at 10%, so increased sliding scale requirements. He continues on course of levofloxacin for the time being. Exam Vital Signs Temp Pulse Resp BP Pulse Ox O2 Del Method 97.0 F 109 H 25 H 136/98 H 96 Room Air 01/08/25 08:00 01/08/25 12:00 01/08/25 08:00 01/08/25 08:24 01/08/25 08:00 01/08/25 08:00 Constitutional Constitutional: no acute distress Routine HEENT Exam Head: Present normocephalic and atraumatic Routine Neck Exam Neck: Present supple and full ROM Routine Respiratory Exam Respiratory: Present chest non-tender, lungs clear, no resp distress and CTA bilaterally Routine Cardiovascular Exam Cardiovascular: Present RRR Routine Extremities Exam Extremities: Present edema (+2 pitting edema bilaterally) Routine Skin Exam Skin: Present intact Routine Psychiatric Exam Psychiatric: Present normal affect, normal thought process, cooperative, good insight and good judgment Objective Labs 01/09/25 05:24 01/09/25 05:24 Labs: Laboratory Results - last 24 hr 01/07/25 01/07/25 01/07/25 11:54 15:14 17:47 WBC RBC Hgb Hct MCV MCH MCHC RDW Std Deviation Plt Count Neut % (Auto) Lymph % (Auto) [place] % (Auto) Eos % (Auto) Baso % (Auto) Neut # (Auto) Lymph # (Auto) [place] # (Auto) Eos # (Auto) Baso # (Auto) Immature Gran # (Auto) Absolute Nucleated RBC Immature Gran % Nucleated RBC % Sodium Potassium Chloride Carbon Dioxide Anion Gap BUN Creatinine Estim Creat Clear Calc eGFR BUN/Creatinine Ratio Glucose Estimated Ave Glu mg/dL Hemoglobin A1c Calculated Osmolality Lactic Acid 3.0 H 1.1 Calcium Phosphorus Magnesium Troponin I 0.064 H* Triglycerides Cholesterol LDL Cholesterol, Calc HDL Cholesterol Cholesterol/HDL Ratio Procalcitonin TSH 01/08/25 05:39 WBC 5.2 RBC 4.86 Hgb 12.8 L Hct 40.7 L MCV 84 MCH 26.3 MCHC 31.4 RDW Std Deviation 51.4 H Plt Count 183 Neut % (Auto) 72 Lymph % (Auto) 14 [place] % (Auto) 11 Eos % (Auto) 2 Baso % (Auto) 1 Neut # (Auto) 3.7 Lymph # (Auto) 0.7 L [place] # (Auto) 0.6 Eos # (Auto) 0.1 Baso # (Auto) 0.0 Immature Gran # (Auto) 0.01 H Absolute Nucleated RBC 0.00 Immature Gran % 0 Nucleated RBC % 0 Sodium 141 Potassium 4.2 Chloride 103 Carbon Dioxide 24.4 Anion Gap 14 BUN 28 H Creatinine 1.6 H Estim Creat Clear Calc 50.3 L eGFR 47 L BUN/Creatinine Ratio [address] Glu mg/dL 240 H Hemoglobin A1c 10.0 H Calculated Osmolality 294 Lactic Acid Calcium 9.6 Phosphorus 3.6 Magnesium 1.2 L Troponin I Triglycerides 130 Cholesterol 189 LDL Cholesterol, Calc 131 H HDL Cholesterol 32 L Cholesterol/HDL Ratio 5.9 Procalcitonin 0.09 TSH 1.04 Quality Measures Quality Measures none Advance care planning discussed with:: patient and significant other Assessment & Plan Problem List (1) CHF (congestive heart failure): Qualifiers: Heart failure chronicity: unspecified Heart failure type: unspecified Qualified Code(s): I50.9 - Heart failure, unspecified Status: Acute (2) Diabetes mellitus: Qualifiers: Diabetes mellitus complication detail: with other kidney complication D iabetes mellitus complication status: with kidney complications Diabetes mellitus group home insulin use: with group home use Diabetes mellitus type: type 2 Qualified Code(s): E11.29 - Type 2 diabetes mellitus with other diabetic kidney complication; Z79.4 - FCI (current) use of insulin Status: Acute (3) Pneumonia: Qualifiers: Laterality: unspecified laterality Lung location: unspecified part of lung Pneumonia type: due to unspecified organism Qualified Code(s): J18.9 - Pneumonia, unspecified organism Status: Acute Assessment Current Active Medications: Generic Name Dose Route Start Last Admin Trade Name Freq PRN Reason Stop Dose Admin Acetaminophen 650 mg 01/07/25 14:46 01/07/25 21:04 Acetaminophen 325 Mg Tablet PO 02/06/25 14:45 650 mg Q6H PRN Administration PAIN (1-3) OR FEVER > 100.4 Atorvastatin Calcium 20 mg 01/08/25 09:00 01/08/25 08:25 Atorvastatin Calcium 20 Mg Tablet PO 02/07/25 08:59 20 mg DAILY JACKIE Administration Protocol Bumetanide 1 mg 01/09/25 09:00 Bumetanide Inj 0.25 Mg/Ml Vial 4 Ml IVP 02/08/25 08:59 BID JACKIE Bumetanide 1 mg 01/08/25 18:00 Bumetanide Inj 0.25 Mg/Ml Vial 4 Ml IVP 01/08/25 18:01 X1 ONE Sirolimus 0.5 Mg 0 ea 01/08/25 09:00 01/08/25 08:40 Tablet PO 02/06/25 20:59 2 tablet QDAY JACKIE Administration Dextrose 25 ml 01/07/25 15:28 Dextrose 50%-Water Inj 50 Ml Syringe IV 02/06/25 15:27 Q15MIN PRN BG 50-70 responsive npo pt Dextrose 50 ml 01/07/25 15:28 Dextrose 50%-Water Inj 50 Ml Syringe IV 02/06/25 15:27 Q15MIN PRN BG <50 OR BG <70 & pt unresponsive Enoxaparin Sodium 40 mg 01/08/25 09:00 01/08/25 08:25 Enoxaparin Sod Inj 40 Mg/0.4 Ml Syringe SC 01/22/25 08:59 40 mg QDAY JACKIE Administration Glucagon 1 mg 01/07/25 15:28 Glucagon Inj 1 Mg Vial IM Q15MIN PRN BG <70, and no IV access Levofloxacin/Dextrose 750 mg in 150 mls @ 100 mls/hr 01/08/25 15:30 Levaquin Ivpb IV 01/15/25 15:29 QDAY JACKIE Insulin Human Lispro 0 unit 01/08/25 07:54 01/08/25 11:48 Insulin Lispro (Admelog) 1 Unit/0.01 Ml Unit SC 02/06/25 21:14 5 unit ACHS JACKIE Administration Protocol Metoprolol Succinate 25 mg 01/09/25 09:00 Metoprolol Succinate Xl 25 Mg Tabcr PO 02/08/25 08:59 QDAY JACKIE Non-Formulary Medication 10 mg 01/08/25 18:00 Jardiance PO 02/07/25 17:59 DAILY JACKIE Ondansetron HCl 4 mg 01/07/25 14:52 Ondansetron Inj 2 Mg/Ml Inj 2 Ml IVP 02/06/25 14:51 Q6H PRN NAUSEA OR VOMITING Protocol Pantoprazole Sodium 40 mg 01/08/25 09:00 01/08/25 08:25 Pantoprazole 40 Mg Tablet PO 02/07/25 08:59 40 mg QDAY JACKIE Administration Pharmacy Consult 1 each 01/07/25 15:05 Pharmacy Renal Dose Adjustment 1 Ea XX 02/06/25 15:04 PRN PRN CONSULT Prednisone 5 mg 01/08/25 09:00 01/08/25 08:25 Prednisone 5 Mg Tablet PO 02/07/25 08:59 5 mg QDAY JACKIE Administration Tacrolimus 1 mg 01/07/25 21:00 01/08/25 08:26 Tacrolimus 1 Mg Capsule PO 02/06/25 20:59 1 mg Q12H JACKIE Administration Tacrolimus 0.5 mg 01/07/25 21:30 01/08/25 08:32 Tacrolimus 0.5 Mg Capsule PO 02/06/25 21:29 0.5 mg Q12H JACKIE Administration Plan 69-year-old male with a past medical history of heart transplant (at [facility] [address] Moise Hou, on immunosuppression), CHF (followed by Dr. Newton outpatient), T2DM, HLD, and GERD who is admitted for CHF exacerbation and treatment for pneumonia. #Acute decompensated heart failure exacerbation #Congestive heart failure #NSTEMI type II, demand ischemia #Sinus tachycardia Hx of heart transplant on immunosuppression since 2017 Increasing bilateral lower extremity edema for the past 3 days +2 Pitting edema BLLE 01/07 BNP 1119 pg/mL 01/07 Troponin 0.069 ng/mL and downtrended VSS ECHO 01/07 EF ~ 27%, down from 35% in 2020 ? Cardiology consulted, appreciate recs ? Bumex 1 mg IV BID ? Strict I/O, fluid restriction (1.5 L daily), daily weights ? Keep Mg > 2, K > 4 -Start dapagliflozin 10mg q24h #Community-acquired pneumonia 3 day history of cough with yellow sputum production. On immunosuppressive medications s/p transplant, thus low threshold for pneumonia suspicion despite afebrile and VSS. ? Levoquine 750 mg q24 (01/08-01/15, on day 1) ? Follow-up blood cultures #Chronic kidney disease #Acute on chronic kidney injury Baseline creatinine and GFR appear to have significant fluctuations but PCP held lasix in light of worsening renal function. Given that patient is on nephrotoxic drugs in conjunction with HENRRY, will consult nephrology. ? Nephrology consulted, appreciate recommendations ? Renally dose medications ? When possible, avoid nephrotoxic agents ? Consulted pharmacy regarding Levoquine dosing, 750mg q 24 okay given creatinine clearance rate #History of heart transplant History of heart transplant [address] Moise Hou at [facility] and patient unclear of exact reason why but suspect to be due to severe CAD at that time. 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 ? Resume home immunosuppression medication regimen ? Tacrolimus 1.0 mg BID + Tacrolimus 0.5 mg BID (confirmed by patient) ? Sirolimus 0.5 mg BID ? Prednisone 5 mg daily #Type 2 diabetes mellitus, insulin-dependent On insulin lispro at home, not taking glargine A1c 10% ? SSI ? Hypoglycemic protocol in place #Hyperlipidemia ? Resumed home rosuvastatin 5 mg daily ? Follow-up lipid panel Hospital management: Disposition: diuresis, IV antibiotics for PNA Diet: low sodium Lines: PIV DVT prophylaxis: lovenox GI prophylaxis: pantoprazole 40 mg daily Zelaya: not indicated CODE STATUS: full code Plan discussed with patient and Dr. Jay Allen MD, PGY-1 Attending Provider Attestation/Addendum INazanin DO, attest that I was physically present for the price portions of the service and evaluated the patient with the resident and I reviewed and discussed the case with the resident and agree with the resident's findings and plans of care as documented above Patient seen and eval this a.m. He remains on IV Bumex daily and has been measuring ins and outs on his own. Patient has had over 900 cc of urinary output since this morning. He continues to have 3+ pitting edema and shortness of breath. He does endorse having productive sputum, but appears to be improved. Patient states that he is less short of breath. Will follow-up with cardiology recommendations and continue with antirejection medication for his heart transplant. Will reach out to [facility] for further recommendations as well.
[2025-01-08] MEDS: LEVOFLOXACIN/D5W 750MG IVPB 750 MG/150 ML BAG 100 MG IV (14:39)
[2025-01-08] MEDS: DAPAGLIFLOZIN PROPANEDIOL 5 MG TABLET 10 MG PO (14:40)
--- NOTE | 2025-01-08 16:09 | PC.SS ---
SS met with patient who is alert/oriented. Patient was able to verify demographics. Patient was admitted for CHF. 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 Patient is independent with ADL's. PCP: Dr. Vyas. Last appt. was last week. Neurologist: [facility]. Plan is to return home. Patient does not use any DME. Alt medical decision maker: [employer] Field Supervisor, Madeline Dias,
[2025-01-08] MEDS: INSULIN LISPRO (AdmeLOG) 1 UNIT/0.01 ML UNIT 15 UNIT SC (17:09)
[2025-01-09] VITALS (9 sets, daily range): BP systolic 96–140; BP diastolic 71–97; PULSE 92–108; RESP 16–26; TEMP 36.1–36.8; O2SAT 93–99; BMI 32.5
[2025-01-09 06:20] LABS: Basophils # (Auto) 0.0 Thou/mm3 (0.0-0.2); Basophils % (Auto) 1 % (0-2.5); Eosinophils # (Auto) 0.1 Thou/mm3 (0.0-0.5); Eosinophils % (Auto) 2 % (0-10); Hematocrit 39.8 % (41.0-53.0); Hemoglobin 12.4 g/dL (13.5-16.0); Immature Granulocytes Auto 0.02 Thou/mm3 (0.00-0.00); Lymphocytes # (Auto) 0.5 Thou/mm3 (1.0-4.8); Lymphocytes % (Auto) 12 % (10-50); Mean Corpuscular HGB Conc 31.2 g/dl (31.0-37.0); Mean Corpuscular Hemoglobin 26.2 pg (25.0-35.0); Mean Corpuscular Volume 84 fL (80-100); Monocytes # (Auto) 0.4 Thou/mm3 (0.0-0.8); Monocytes % (Auto) 10 % (0-12); Neutrophils # (Auto) 3.3 Thou/mm3 (1.8-7.7); Neutrophils % (Auto) 75 % (37-80); Nucleated Red Blood Cell # 0.00 Thou/mm3 (0.00-0.00); Nucleated Red Blood Cell % 0 /100 WBC (0); Platelet Count 170 Thou/mm3 (140-440); RDW Standard Deviation 51.4 fL (35.1-43.9); Red Blood Count 4.74 Miln/mm3 (4.50-5.90); White Blood Count 4.4 Thou/mm3 (3.8-10.6)
[2025-01-09 06:40] LABS: Anion Gap 10 (7-16); BUN/Creatinine Ratio 18 Ratio (12-20); Blood Urea Nitrogen 31 mg/dL (9-23); Calcium 9.4 mg/dL (8.3-10.6); Carbon Dioxide 27.8 mMol/L (20.0-31.0); Chloride 103 mMol/L (98-107); Creatinine (Component) 1.7 mg/dL (0.6-1.3); Estimated Creatinine Clearance 47.6 mL/min (>60); Glucose 206 mg/dL (74-106); Magnesium 1.6 mg/dL (1.6-2.6); Osmolality,Calculated 293 (275-295); Phosphorous 4.5 mg/dL (2.4-5.1); Potassium 4.6 mMol/L (3.4-5.1); Sodium 141 mMol/L (136-145); eGFR 43 See Note
[2025-01-09] MEDS: INSULIN LISPRO (AdmeLOG) 1 UNIT/0.01 ML UNIT 15 UNIT SC (08:26)
[2025-01-09] MEDS: INSULIN LISPRO (AdmeLOG) 1 UNIT/0.01 ML UNIT SC ×2 (08:27→11:38)
[2025-01-09] MEDS: ENOXAPARIN SOD INJ 40 MG/0.4 ML SYRINGE SC (08:28)
[2025-01-09] MEDS: BUMETANIDE INJ 0.25 MG/ML VIAL 4 ML 1 MG IVP ×2 (08:29→20:50)
[2025-01-09] MEDS: DAPAGLIFLOZIN PROPANEDIOL 5 MG TABLET 10 MG PO (08:30)
[2025-01-09] MEDS: PANTOPRAZOLE 40 MG TABLET PO (08:31)
[2025-01-09] MEDS: ATORVASTATIN CALCIUM 20 MG TABLET PO (08:31)
[2025-01-09] MEDS: METOPROLOL SUCCINATE XL 25 MG TABCR PO (08:31)
[2025-01-09] MEDS: TACROLIMUS 1 MG CAPSULE PO ×2 (08:32→20:51)
[2025-01-09] MEDS: TACROLIMUS 0.5 MG CAPSULE PO ×2 (08:32→21:28)
[2025-01-09] MEDS: LEVOFLOXACIN/D5W 750MG IVPB 750 MG/150 ML BAG 100 MG IV (08:33)
--- NOTE | 2025-01-09 08:45 | PD.IMPROG ---
Documentation for date of: 01/09/25 Subjective Subjective Interval history: Patient appears comfortable Leg swellings noted Echocardiographic examination shows severe LV dysfunction Ejection fraction 25% Continue heart failure medications Exam Vital Signs Temp Pulse Resp BP Pulse Ox O2 Del Method 97.0 F 100 18 140/94 H 99 Room Air 01/09/25 08:00 01/09/25 08:00 01/09/25 08:00 01/09/25 08:00 01/09/25 08:00 01/09/25 08:00 Routine HEENT Exam Head: Present normocephalic and atraumatic Eye: Present EOMI and PERRL ENT: Present mucous membranes moist Routine Neck Exam Neck: Present supple and trachea midline Routine Respiratory Exam Respiratory: Present chest non-tender, lungs clear, normal breath sounds and no resp distress Routine Cardiovascular Exam Cardiovascular: Present RRR Routine Abdominal Exam Abdominal: Present soft and normoactive bowel sounds Routine Extremities Exam Extremities: Present full ROM Routine Skin Exam Skin: Present intact, dry and warm Routine Neurological Exam Neurological: Present alert, oriented X3 and CN II-XII intact Routine Psychiatric Exam Psychiatric: Present normal affect and normal thought process Objective Labs 01/09/25 05:24 01/09/25 05:24 Labs: Laboratory Results - last 24 hr 01/08/25 01/09/25 05:39 05:24 WBC 4.4 RBC 4.74 Hgb 12.4 L Hct 39.8 L MCV 84 MCH 26.2 MCHC 31.2 RDW Std Deviation 51.4 H Plt Count 170 Neut % (Auto) 75 Lymph % (Auto) 12 Cowley % (Auto) 10 Eos % (Auto) 2 Baso % (Auto) 1 Neut # (Auto) 3.3 Lymph # (Auto) 0.5 L Cowley # (Auto) 0.4 Eos # (Auto) 0.1 Baso # (Auto) 0.0 Immature Gran # (Auto) 0.02 H Absolute Nucleated RBC 0.00 Immature Gran % 1 H Nucleated RBC % 0 Sodium 141 Potassium 4.6 Chloride 103 Carbon Dioxide 27.8 Anion Gap 10 BUN 31 H Creatinine 1.7 H Estim Creat Clear Calc 47.6 L eGFR 43 L BUN/Creatinine Ratio 18 Glucose 206 H Calculated Osmolality 293 Calcium 9.4 Phosphorus 4.5 Magnesium 1.6 Procalcitonin 0.09 Assessment & Plan A&P Narrative Severe LV dysfunction Continue guideline directed medical management for heart failure Time Spent With Patient Time: Total time spent is greater than 50% in coordination of care (as documented) at patient's floor/unit and/or counseling patient:
--- NOTE | 2025-01-09 08:46 | ESPR_ITS ---
Documentation for date of: 01/09/25 Subjective Subjective Interval history: History of present illness: 69-year-old male with a past medical history of heart transplant (at [facility] [address] Moise Hou, on immunosuppression), CHF (followed by Dr. Newton outpatient), T2DM, HLD, and GERD who comes in after PCP sent him to [facility] due to concerns for unresolving pneumonia as seen on imaging obtained outpatient. He endorses associated worsening bilateral lower extremity edema and orthopnea approximately over the last few days to week. Per patient, he is on lasix at home but due to worsening renal function it was held. Denies shortness of breath, chest pain/tightness, palpitations. Denies any recent sick contacts but endorses mild coughing of yellow sputum for the last few days. Of note, states that there are months when he does not need to take lasix as he does not have edema and dry weight is presumed to be approximately 195-200 lbs but is currently around 210 lbs. His heart transplant was done approximately 8 years ago at [facility] for presumed significant coronary artery disease and after presenting at that time he received a heart transplant one month later. He has been following Dr. Moise Hou but has been unable to see him due to insurance issues for the last 1.5 years. 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 Additionally, a visit on 09/2024 for chest pain and heaviness prompted a cardiac catheterization which yielded mildly reduced left and systolic dysfunction; EF ~45%. LAD midsegment 40% lesion but otherwise normal appearance in other coronary arteries. No stenting was done and patient was opted for medical management. 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 Nephrology consulted for HENRRY on CKD 3a. 01/08/25: Patient seen and examined at bedside. No complaints this morning, denies shortness of breath or chest pain. Reports that he has not followed up with his transplant specialist at [facility] for almost 2 years due to insurance issues. Also reports that he had symptoms of organ rejection 2 years ago. On exam patient had 3+ pitting edema extending up to his knees bilaterally. Creatinine 1.6 which appears within his baseline (1.2-1.8 since 2019). GFR 43 on admission, improved to 47 after Bumex 1 mg x2. BNP 1119 (baseline 100-300). Continue Bumex as renal function appears to be stable. 01/09/25: Patient seen and examined at bedside. Partner at bedside. Denies shortness of breath and lower extremity edema improved. Cr 1.7 which is still within his baseline. GFR 43. Continue Bumex, may transition to PO Bumex 1 mg on discharge. Attempting transfer to [facility] per primary team for post transplant follow up. Exam Vital Signs Temp Pulse Resp BP Pulse Ox O2 Del Method 97.0 F 100 18 140/94 H 99 Room Air 01/09/25 08:00 01/09/25 08:00 01/09/25 08:00 01/09/25 08:00 01/09/25 08:00 01/09/25 08:00 Narrative Exam Physical Exam General: Awake and in no acute distress. Conversational and non-toxic appearing. HEENT: Normocephalic, atraumatic, mucous membranes moist. Heart: Regular rate and rhythm, normal S1 and S2, no murmurs appreciated. S urgical scars on chest and base of neck. Lungs: Clear to auscultation bilaterally. Abdomen: Soft, nondistended, nontender, positive bowel sounds. No guarding or rebound tenderness. Neurologic: Alert and oriented x3, no gross neurological deficit, and patient able to move all 4 extremities. Extremities: 1+ pitting edema bilaterally extending up to knees. Skin: No rash or ecchymoses. Objective Labs 01/09/25 05:24 01/09/25 05:24 Labs: Laboratory Results - last 24 hr 01/08/25 01/09/25 05:39 05:24 WBC 4.4 RBC 4.74 Hgb 12.4 L Hct 39.8 L MCV 84 MCH 26.2 MCHC 31.2 RDW Std Deviation 51.4 H Plt Count 170 Neut % (Auto) 75 Lymph % (Auto) 12 Holmes % (Auto) 10 Eos % (Auto) 2 Baso % (Auto) 1 Neut # (Auto) 3.3 Lymph # (Auto) 0.5 L Holmes # (Auto) 0.4 Eos # (Auto) 0.1 Baso # (Auto) 0.0 Immature Gran # (Auto) 0.02 H Absolute Nucleated RBC 0.00 Immature Gran % 1 H Nucleated RBC % 0 Sodium 141 Potassium 4.6 Chloride 103 Carbon Dioxide 27.8 Anion Gap 10 BUN 31 H Creatinine 1.7 H Estim Creat Clear Calc 47.6 L eGFR 43 L BUN/Creatinine Ratio 18 Glucose 206 H Calculated Osmolality 293 Calcium 9.4 Phosphorus 4.5 Magnesium 1.6 Procalcitonin 0.09 Quality Measures Quality Measures none Advance care planning discussed with:: patient Assessment & Plan Assessment Current Active Medications: Generic Name Dose Route Start Last Admin Trade Name Freq PRN Reason Stop Dose Admin Acetaminophen 650 mg 01/07/25 14:46 01/07/25 21:04 Acetaminophen 325 Mg Tablet PO 02/06/25 14:45 650 mg Q6H PRN Administration PAIN (1-3) OR FEVER > 100.4 Atorvastatin Calcium 20 mg 01/08/25 09:00 01/08/25 08:25 Atorvastatin Calcium 20 Mg Tablet PO 02/07/25 08:59 20 mg DAILY JACKIE Administration Protocol Bumetanide 1 mg 01/09/25 09:00 Bumetanide Inj 0.25 Mg/Ml Vial 4 Ml IVP 02/08/25 08:59 BID JACKIE Sirolimus 0.5 Mg 0 ea 01/08/25 09:00 01/08/25 08:40 Tablet PO 02/06/25 20:59 2 tablet QDAY JACKIE Administration Dapagliflozin 10 mg 01/08/25 14:15 01/08/25 14:40 Dapagliflozin Propanediol 5 Mg Tablet PO 02/07/25 14:14 10 mg DAILY JACKIE Administration Dextrose 25 ml 01/07/25 15:28 Dextrose 50%-Water Inj 50 Ml Syringe IV 02/06/25 15:27 Q15MIN PRN BG 50-70 responsive npo pt Dextrose 50 ml 01/07/25 15:28 Dextrose 50%-Water Inj 50 Ml Syringe IV 02/06/25 15:27 Q15MIN PRN BG <50 OR BG <70 & pt unresponsive Enoxaparin Sodium 40 mg 01/08/25 09:00 01/08/25 08:25 Enoxaparin Sod Inj 40 Mg/0.4 Ml Syringe SC 01/22/25 08:59 40 mg QDAY JACKIE Administration Glucagon 1 mg 01/07/25 15:28 Glucagon Inj 1 Mg Vial IM Q15MIN PRN BG <70, and no IV access Levofloxacin/Dextrose 750 mg in 150 mls @ 100 mls/hr 01/08/25 15:30 01/08/25 14:39 Levaquin Ivpb IV 01/15/25 15:29 100 mls/hr QDAY JACKIE Administration Insulin Human Lispro 15 unit 01/08/25 17:00 01/08/25 20:37 Insulin Lispro (Admelog) 1 Unit/0.01 Ml Unit SC 02/07/25 16:59 Not Given ACHS JACKIE Insulin Human Lispro 0 unit 01/09/25 07:30 Insulin Lispro (Admelog) 1 Unit/0.01 Ml Unit SC 02/08/25 07:29 AC JACKIE Protocol Metoprolol Succinate 25 mg 01/09/25 09:00 Metoprolol Succinate Xl 25 Mg Tabcr PO 02/08/25 08:59 QDAY JACKIE Ondansetron HCl 4 mg 01/07/25 14:52 Ondansetron Inj 2 Mg/Ml Inj 2 Ml IVP 02/06/25 14:51 Q6H PRN NAUSEA OR VOMITING Protocol Pantoprazole Sodium 40 mg 01/08/25 09:00 01/08/25 08:25 Pantoprazole 40 Mg Tablet PO 02/07/25 08:59 40 mg QDAY JACKIE Administration Pharmacy Consult 1 each 01/07/25 15:05 Pharmacy Renal Dose Adjustment 1 Ea XX 02/06/25 15:04 PRN PRN CONSULT Prednisone 5 mg 01/08/25 09:00 01/08/25 08:25 Prednisone 5 Mg Tablet PO 02/07/25 08:59 5 mg QDAY JACKIE Administration Tacrolimus 1 mg 01/07/25 21:00 01/08/25 20:37 Tacrolimus 1 Mg Capsule PO 02/06/25 20:59 1 mg Q12H JACKIE Administration Tacrolimus 0.5 mg 01/07/25 21:30 01/08/25 20:37 Tacrolimus 0.5 Mg Capsule PO 02/06/25 21:29 0.5 mg Q12H JACKIE Administration Plan Patient is a 69 year old male with past medical history of heart transplant (at [facility] [address] Moise Hou, on immunosuppression), HFmrEF (EF 45%), remote hx of prostate cancer s/p radiation, T2DM, HLD, and GERD who was admitted 01/07/25 for CHF exacerbation and PNA. Nephrology consulted for HENRRY on CKD 3a. #HENRRY on CKD 3a #Hx heart transplant 03/10 dilated cardiomyopathy - Patient reports that he has been taking Lasix 40 daily for the past month for worsening lower extremity edema but was discontinued 10 days ago by PCP due to mild HENRRY. Only takes Lasix intermittently based on weight and swelling. - Patient also has history of heart transplant at [facility] in 2017 as a result of worsening dilated cardiomyopathy. Reports symptoms of organ rejection about 2 years ago and has not been able to follow up with his transplant specialist for at least 1.5 years. On low dose tacrolimus, sirolimus, and prednisone. - Appears hypervolemic on exam with 3+ pitting edema in lower extremities. - Cr 1.6 on admission which appears to be his baseline (1.2-1.8 since 2019). - GFR 43 -> 47, improved after Bumex. Baseline 51 to greater than 60. - BNP 1119 (baseline 100-300s). - Likely secondary to fluid overload from CHF exacerbation iso of PNA. Tacrolimus use may also contribute to worsening renal function and there is also concern for cardiac allograft vasculopathy. Plan: - Continue Bumex 1 mg, can transition to PO upon discharge. 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 Discussed with patient importance of urgent follow up with [facility] transplant specialist to rule out CAV after insurance approval. Per primary team, attempting transfer to [facility] today. #Acute decompensated heart failure exacerbation #Congestive heart failure #NSTEMI type II, demand ischemia #Sinus tachycardia #Community-acquired pneumonia #History of heart transplant #Type 2 diabetes mellitus, insulin-dependent #Hyperlipidemia Thank you for your consultation, please do not hesitate to reach out if you have any question or concern. Patient plan of care was discussed with the attending physician, Dr. Ronquillo. Martha Fisher DO, PGY-1 Attending Provider Attestation/Addendum Patient currently seen and examined with resident physician Dr. Fisher. Note reviewed, agree with findings and recommendations. Patient currently seen in telemetry. Madeline, my patient at bedside. Patient has significant edema-not quite sure if he has congestive heart failure versus related to chronic allograft rejection. Last seen in the heart transplant center 2 years ago. Recommended to go and see them after discharge. Agree with the diuretics. Patient will be left with some kidney impairment. Care discussed with primary team.
[2025-01-09] MEDS: INSULIN DEGLUDEC 5 UNIT/0.05 ML (PER 5 UNITS) SC (11:36)
[2025-01-09] MEDS: INSULIN LISPRO (AdmeLOG) 1 UNIT/0.01 ML UNIT 10 UNIT SC ×2 (11:39→17:32)
--- NOTE | 2025-01-09 13:55 | ESPR_ITS ---
<Statement entered by Bakari Huff MD - 01/09/25 14:40> No acute overnight events. Seen and examined at bedside resting comfortably in bed. Denies any worsening shortness of breath or chest discomfort. However, he continues to have bilateral lower extremity edema that appears to be improving with diuresis. Touch base with his assistant refinery operator at [facility] and stated that patient may need higher level of care given complex history regarding heart transplant as he has already had 1 prior episode of signs of rejection. Spoke to transfer nurse and transfer process initiated with Dr. Moise Hou as accepting physician. Additionally, Dr. Hou recommended to start patient on high-dose steroids. Given patient's hyperglycemia prior to administration of high-dose steroids, will keep close eye on glucose with every 4 hour checks and change insulin accordingly. ----- Note reviewed and agree with care plan as documented. Please refer to the note below for further details. Plan discussed with attending physician Dr. Jay Huff MD PGY-2 Internal Medicine Documentation for date of: 01/09/25 Subjective Subjective Interval history: Mr. Lee is in good spirits today, swelling has improved and he has no orthopnea nor dyspnea. He continues on the bumex 1mg BID and dapagliflozin 10 q24h without concern. I spoke with Mr. Foss about the plan for a transfer to the care of Dr. Moise Hou to which he understood, and for the initiation of 250mg solumedrol for controlling a possible episode of rejection. Have confirmed the transfer with Dr. Hou and transfer nurse Akbar Almanza for the transfer regarding CHF exacerbation due to potential rejection, necesitating further workup including but not limited to cardiac catheterization, cardiac biopsy. Exam Vital Signs Temp Pulse Resp BP Pulse Ox O2 Del Method 97.0 F 99 19 113/79 95 Room Air 01/09/25 12:00 01/09/25 12:00 01/09/25 12:00 01/09/25 12:00 01/09/25 12:01/09/25 12:00 Narrative Exam General: alert and oriented to self/place/year, no acute distress, able to speak full sentences; ambulating well, GCS 15 AxOx4 HEENT: NC/AT, mucous membranes moist, bilateral sclera anicteric Cardiovascular: regular rate and rhythm, S1/S2 present, no murmurs appreciated Pulmonary: clear to auscultation bilaterally, no rales/rhonchi/wheezes Abdominal: soft, nontender Musculoskeletal: improved peripheral edema, +2 bilateral lower legs Skin: Warm, well-perfused Objective Labs 01/10/25 04:20 01/10/25 04:20 Labs: Laboratory Results - last 24 hr 01/09/25 05:24 WBC 4.4 RBC 4.74 Hgb 12.4 L Hct 39.8 L MCV 84 MCH 26.2 MCHC 31.2 RDW Std Deviation 51.4 H Plt Count 170 Neut % (Auto) 75 Lymph % (Auto) 12 Gila % (Auto) 10 Eos % (Auto) 2 Baso % (Auto) 1 Neut # (Auto) 3.3 Lymph # (Auto) 0.5 L Gila # (Auto) 0.4 Eos # (Auto) 0.1 Baso # (Auto) 0.0 Immature Gran # (Auto) 0.02 H Absolute Nucleated RBC 0.00 Immature Gran % 1 H Nucleated RBC % 0 Sodium 141 Potassium 4.6 Chloride 103 Carbon Dioxide 27.8 Anion Gap 10 BUN 31 H Creatinine 1.7 H Estim Creat Clear Calc 47.6 L eGFR 43 L BUN/Creatinine Ratio 18 Glucose 206 H Calculated Osmolality 293 Calcium 9.4 Phosphorus 4.5 Magnesium 1.6 Quality Measures Quality Measures none Advance care planning discussed with:: patient and significant other Assessment & Plan Assessment Current Active Medications: Generic Name Dose Route Start Last Admin Trade Name Freq PRN Reason Stop Dose Admin Acetaminophen 650 mg 01/07/25 14:46 01/07/25 21:04 Acetaminophen 325 Mg Tablet PO 02/06/25 14:45 650 mg Q6H PRN Administration PAIN (1-3) OR FEVER > 100.4 Atorvastatin Calcium 20 mg 01/08/25 09:00 01/09/25 08:31 Atorvastatin Calcium 20 Mg Tablet PO 02/07/25 08:59 20 mg DAILY JACKIE Administration Protocol Bumetanide 1 mg 01/09/25 09:00 01/09/25 08:29 Bumetanide Inj 0.25 Mg/Ml Vial 4 Ml IVP 02/08/25 08:59 1 mg BID JACKIE Administration Sirolimus 0.5 Mg 0 ea 01/08/25 09:00 01/09/25 08:33 Tablet PO 02/06/25 20:59 2 tablet QDAY JACKIE Administration Dapagliflozin 10 mg 01/08/25 14:15 01/09/25 08:30 Dapagliflozin Propanediol 5 Mg Tablet PO 02/07/25 14:14 10 mg DAILY JACKIE Administration Dextrose 25 ml 01/07/25 15:28 Dextrose 50%-Water Inj 50 Ml Syringe IV 02/06/25 15:27 Q15MIN PRN BG 50-70 responsive npo pt Dextrose 50 ml 01/07/25 15:28 Dextrose 50%-Water Inj 50 Ml Syringe IV 02/06/25 15:27 Q15MIN PRN BG <50 OR BG <70 & pt unresponsive Enoxaparin Sodium 40 mg 01/08/25 09:00 01/09/25 08:28 Enoxaparin Sod Inj 40 Mg/0.4 Ml Syringe SC 01/22/25 08:59 40 mg QDAY JACKIE Administration Glucagon 1 mg 01/07/25 15:28 Glucagon Inj 1 Mg Vial IM Q15MIN PRN BG <70, and no IV access Levofloxacin/Dextrose 750 mg in 150 mls @ 100 mls/hr 01/08/25 15:30 01/09/25 08:33 Levaquin Ivpb IV 01/15/25 15:29 100 mls/hr QDAY JACKIE Administration Insulin Degludec 5 unit 01/09/25 10:00 01/09/25 11:36 Insulin Degludec 5 Unit/0.05 Ml (Per 5 Units) SC 02/08/25 09:59 5 unit QDAY JACKIE Administration Insulin Human Lispro 0 unit 01/09/25 07:30 01/09/25 11:38 Insulin Lispro (Admelog) 1 Unit/0.01 Ml Unit SC 02/08/25 07:29 3 unit AC [facility] Administration Protocol Insulin Human Lispro 10 unit 01/09/25 11:30 01/09/25 11:39 Insulin Lispro (Admelog) 1 Unit/0.01 Ml Unit SC 02/08/25 11:29 10 unit AC [facility] Administration Metoprolol Succinate 25 mg 01/09/25 09:00 01/09/25 08:31 Metoprolol Succinate Xl 25 Mg Tabcr PO 02/08/25 08:59 25 mg QDAY JACKIE Administration Ondansetron HCl 4 mg 01/07/25 14:52 Ondansetron Inj 2 Mg/Ml Inj 2 Ml IVP 02/06/25 14:51 Q6H PRN NAUSEA OR VOMITING Protocol Pantoprazole Sodium 40 mg 01/08/25 09:00 01/09/25 08:31 Pantoprazole 40 Mg Tablet PO 02/07/25 08:59 40 mg QDAY JACKIE Administration Pharmacy Consult 1 each 01/07/25 15:05 Pharmacy Renal Dose Adjustment 1 Ea XX 02/06/25 15:04 PRN PRN CONSULT Prednisone 5 mg 01/08/25 09:00 01/09/25 08:31 Prednisone 5 Mg Tablet PO 02/07/25 08:59 5 mg QDAY JACKIE Administration Tacrolimus 1 mg 01/07/25 21:00 01/09/25 08:32 Tacrolimus 1 Mg Capsule PO 02/06/25 20:59 1 mg Q12H JACKIE Administration Tacrolimus 0.5 mg 01/07/25 21:30 01/09/25 08:32 Tacrolimus 0.5 Mg Capsule PO 02/06/25 21:29 0.5 mg Q12H JACKIE Administration Plan #Acute decompensated heart failure exacerbation #Congestive heart failure #NSTEMI type II, demand ischemia #Sinus tachycardia Hx of heart transplant on immunosuppression since 2017 Increasing bilateral lower extremity edema for the past 3 days +2 Pitting edema BLLE 01/07 BNP 1119 pg/mL 01/07 Troponin 0.069 ng/mL and downtrended VSS ECHO 01/07 EF ~ 27%, down from 35% in 2020 ? Cardiology consulted, appreciate recs ? Bumex 1 mg IV BID ? Strict I/O, fluid restriction (1.5 L daily), daily weights ? Keep Mg > 2, K > 4 -Start dapagliflozin 10mg q24h -Started on 250mg Solumedrol for concerns of rejection -Transfer to [facility] w/ accepting physician Dr. Moise Hou for further workup regarding CHF exacerbation vs transplant rejection #Community-acquired pneumonia 3 day history of cough with yellow sputum production. On immunosuppressive medications s/p transplant, thus low threshold for pneumonia suspicion despite afebrile and VSS. ? Levoquine 750 mg q24 (01/08-01/15, on day 1) ? Follow-up blood cultures #Chronic kidney disease #Acute on chronic kidney injury Baseline creatinine and GFR appear to have significant fluctuations but PCP held lasix in light of worsening renal function. Given that patient is on nephrotoxic drugs in conjunction with HENRRY, will consult nephrology. ? Nephrology consulted, appreciate recommendations ? Renal dose medications ? When possible, avoid nephrotoxic agents ? 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 Moise Hou at [facility] and patient unclear of exact reason why but suspect to be due to severe CAD at that time. 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 ? Resume home immunosuppression medication regimen ? Tacrolimus 1.0 mg BID + Tacrolimus 0.5 mg BID (confirmed by patient) ? Sirolimus 0.5 mg BID ? Prednisone 5 mg daily #Type 2 diabetes mellitus, insulin-dependent On insulin lispro at home, not taking glargine A1c 10% ? SSI ? Hypoglycemic protocol in place -Lispro --> 10 + Insulin degludec 5 U q24h -Q4h glucose checks #Hyperlipidemia ? Resumed home rosuvastatin 5 mg daily ? Follow-up lipid panel Hospital management: Disposition: diuresis, steroids, glucose checks Diet: low sodium Lines: PIV DVT prophylaxis: lovenox GI prophylaxis: pantoprazole 40 mg daily Zelaya: not indicated CODE STATUS: full code Plan discussed with attending physician Dr. Nazanin Allen MD, PGY1 Attending Provider Attestation/Addendum I, Nazanin Thompson, DO, attest that I was physically present for the price portions of the service and evaluated the patient with the resident and I reviewed and discussed the case with the resident and agree with the resident's findings and plans of care as documented above Patient seen and evaluated this AM. He continues to have 2+ pitting b/l le edema. However, patient states he is feeling much improved and was able to get restful sleep. Patient on room air and in no acute respiratory distress. Patient's transplant assistant refinery operator who recommended giving patient solumedrol 250mg IV and to initiate transfer to [facility]. Will continue with IV diuretics and montior blood glucose closely following steroid dose. Pt had one episode of hypoglycemia overnight which patient reported symptoms, but improved with orange juice. Pt is otherwise agreeable to transfer and remains stable.
--- NOTE | 2025-01-09 15:05 | PC.CC ---
Addendum entered by Alireza Funez RN 01/09/25 19:14: 1909: Spoke to ICU ASTER Tillman, handoff report provided. Transfer packet with 1 CD on transfer nurse desk. Addendum entered by Alireza Funez RN 01/09/25 18:35: 1824: called [facility] to f/u on status of transfer request, Jasmin stated they are waiting for financial clearance. I will follow up tomorrow. Addendum entered by Alireza Funez RN 01/09/25 17:50: 1614: called and spoke to Sunil to inform him that [facility] [employer] called back and auth will created and faxed to the [facility]. He asked for contact information for [facility] to speak directly to Janie. Transfer packet and 1 CD created. Addendum entered by Alireza Funez RN 01/09/25 16:13: 1607: received a missed call from [facility]. Called [facility] back, spoke to Janie , she stated auth will be created and faxed to [phone] 1600: received call from Sunil from [facility] Yomi Francisco Javier requesting insurance auth. I informed him that I am waiting for a call back from the insurance company. He asked for a call back when insurance auth is obtained [phone] ext [phone] Addendum entered by Alireza Funez RN 01/09/25 15:55: received call from Mandi montenegro/ [facility] stating she has not received clinicals. Resent clinicals and sent facesheet separately. Original Note: spoke to Dr. Santiago during rounds to transfer patient to [facility] for possible heart transplant rejection. Called and spoke Jasmin at [facility] to initiate transfer request. Informed her that our hospitalist has been speaking to Dr. Moise Hou and he as accepted patient. She stated she has note that we would be reaching out. Clinicals sent for review. I reached out to [facility] for insurance auth, left VM.
--- NOTE | 2025-01-09 16:00 | ESDS_ITS ---
<Statement entered by Nazanin Thompson DO - 01/10/25 08:11> I, Nazanin Thompson DO, attest that I was physically present for the price portions of the service and evaluated the patient with the resident and I reviewed and discussed the case with the resident and agree with the resident's findings and plans of care as documented above <Statement entered by Bakari Huff MD - 01/09/25 16:54> Note reviewed and agree with care plan as documented. Please refer to the note below for further details. Plan discussed with attending physician Dr. Jay Huff MD PGY-2 Internal Medicine Planned Discharge Date 01/09/25 DS: Providers Provider Date of admission: 01/07/25 14:59 Primary care physician: Jordan Vyas MD Admitting Provider: Nazanin Thompson DO Attending Provider on Admission: Nazanin Thompson DO Consults: 01/07/25 13:35 Consult to Cardiology Stat Comment: Consulting Provider: Gabino Newton 01/07/25 15:02 Consult to Nephrology Stat Comment: Consulting Provider: Ramon Ronquillo 01/09/25 13:51 Referral - Overhead Distribution Engineer Stat Service Needed for Transfer: Cardiology Addl Comments:: Transfer to [facility] Accepting Physician Dr. Moise Hou Pt w/ PMH heart transplant previously managed by Dr. Moise Hou presents for CHF exacerbation, concerns for Heart Failure vs rejection. Attending Provider on DC: Omid Allen MD Discharging Provider: Omid Allen MD DS: Diagnosis Problem List Completed Was Problem List Reviewed/Reconciled?: Yes Hospital Course Hospital Course Hospital course: Mr. Rosa Foss is a 69 M w/ a PMH history of cardiac transplantation at [facility] in 2017 for heart failure, on immunosuppresion medication with tacrolimus, sirolimus here for CHF exacerbation and possible organ rejection. He was admitted to [facility]] for treatment for heart failure, with ECHO revealing ~25% EF from a previous ~35% in 2019. Home meds were resumed with bumetanide changed from furosemide 40mg home regimen; dapagliflozin 10mg q24h was added ot regimen. A1c drawn at admission yielded 10%. Consultation with his previous medical office professional instructor, Dr. Moise Hou(who managed him post-transplant), provided adolescent counselor on starting solumedrol 250mg to treat acute symptoms of rejection and a cardiac catheterization. Extensive talks held with Dr. Hou urged a transfer to [facility] for higher level of care that include, but are limited to repeat cardiac catheterization, alteration in immunosuppresion medication and cardiac biopsy. Initiation with transfer center started. 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 Thompson and senior resident Dr. Daria Allen MD PGY-1 Status at Discharge Cognitive/behavioral status at discharge: baseline Time Spent with Patient Time attestation: Total time spent providing and/or coordinating discharge services: Time spent: Greater than 30 minutes Exam Vital Signs Temp Pulse Resp BP Pulse Ox O2 Del Method 97.0 F 99 19 113/79 95 Room Air 01/09/25 12:00 01/09/25 12:01/09/25 12:00 01/09/25 12:00 01/09/25 12:00 01/09/25 12:00 Narrative Exam General: alert and oriented to self/place/year, no acute distress, able to speak full sentences; cheerful, understanding of plans for further medical management HEENT: NC/AT, mucous membranes moist, bilateral sclera anicteric Cardiovascular: regular rate and rhythm, S1/S2 present, no murmurs appreciated Pulmonary: clear to auscultation bilaterally, no rales/rhonchi/wheezes Abdominal: soft, nontender, present bowel sounds Musculoskeletal: +2 peripheral edema bilaterally Skin: Warm, well-perfused Discharge Plan Plan Patient Disposition: Xfer Other Facility Pt Being Transferred to: [facility] Service Needed for Transfer: Cardiology Disposition Comment: Discharge home to follow up with [facility] Cardiovascular [facility] with Dr. Hou Patient condition on transfer: Stable Prescriptions/Referrals Prescriptions/Med Rec: New dapagliflozin propanediol 10 mg tablet 10 mg PO DAILY 30 Days Qty: 30 0RF Continued prednisolone 5 mg tablet 5 mg PO QDAY omeprazole 20 MG capsule,delayed release(DR/EC) 20 mg PO QDAY Qty: 0 insulin aspart U-100 [Novolog FlexPen U-100 Insulin] 100 unit/mL (3 mL) Insulin Pen 10 unit SUBCUT TID tacrolimus [Prograf] 1 mg Capsule 3 mg PO Q12H sirolimus 0.5 mg tablet 1 mg PO Q12H Patient Comments: TAKE 2 TABLETS BY MOUTH DAILY. rosuvastatin 20 mg tablet 5 mg PO DAILY Patient Comments: TAKE 1 TABLET BY MOUTH EVERYDAY AT BEDTIME tacrolimus 0.5 mg capsule 0.5 mg PO Q12H Patient Comments: TAKE 1 CAPSULE (0.5 MG TOTAL) BY MOUTH TWO (2) TIMES DAILY. tramadol 50 mg tablet 50 mg PO DAILY PRN (Reason: pain) Patient Comments: TAKE 1 TABLET NEEDED ORALLY ONCE A DAY NEEDED amlodipine 5 mg tablet 5 mg PO DAILY Patient Comments: TAKE 1 TABLET BY MOUTH EVERY DAY carvedilol 6.25 mg tablet 6.25 mg PO BID Patient Comments: TAKE 1 TABLET BY MOUTH TWICE A DAY WITH FOOD Discontinued gabapentin 100 mg capsule 50 mg PO DAILY Victoza 2-Jose Guadalupe 0.6 mg/0.1 mL (18 mg/3 mL) pen injector 1.2 mg subcut QDAY insulin glargine [Lantus U-100 Insulin] 100 unit/mL Solution 26 unit SUBCUT QPM No Action amoxicillin-pot clavulanate 875-125 mg tablet 1 tab PO Q12H Patient Comments: TAKE 1 TABLET BY MOUTH EVERY 12 HOURS Referrals: Jordan Vyas MD [Primary Care Provider, Family Practice] Patient/Caregiver Discharge Instructions Discharge Activity: resume usual activities Other Discharge Activity Instructions:: -Medical management per team at [facility], as well as post-visit recommendations regarding activity and disposition Education Materials: Low-Salt Choices, Diabetes: Caring for Your Body, Heart Failure: Evaluating Your Heart Print Language: Marshallese Stand Alone Forms: Martine Award Info., Patient Portal Info Letter Quality Discharge Quality Measures none
[2025-01-09] MEDS: DOCUSATE SOD 100 MG CAPSULE PO (17:36)
[2025-01-10] VITALS (7 sets, daily range): BP systolic 99–123; BP diastolic 70–90; PULSE 81–102; RESP 17–22; TEMP 36.2–36.6; O2SAT 93–97; BMI 17.6
[2025-01-10] MEDS: INSULIN LISPRO (AdmeLOG) 1 UNIT/0.01 ML UNIT 4 UNIT SC (03:48)
[2025-01-10 05:14] LABS: Basophils # (Auto) 0.0 Thou/mm3 (0.0-0.2); Basophils % (Auto) 0 % (0-2.5); Eosinophils # (Auto) 0.0 Thou/mm3 (0.0-0.5); Eosinophils % (Auto) 0 % (0-10); Hematocrit 39.3 % (41.0-53.0); Hemoglobin 12.1 g/dL (13.5-16.0); Immature Granulocytes Auto 0.03 Thou/mm3 (0.00-0.00); Lymphocytes # (Auto) 0.2 Thou/mm3 (1.0-4.8); Lymphocytes % (Auto) 5 % (10-50); Mean Corpuscular HGB Conc 30.8 g/dl (31.0-37.0); Mean Corpuscular Hemoglobin 25.4 pg (25.0-35.0); Mean Corpuscular Volume 82 fL (80-100); Monocytes # (Auto) 0.0 Thou/mm3 (0.0-0.8); Monocytes % (Auto) 1 % (0-12); Neutrophils # (Auto) 4.0 Thou/mm3 (1.8-7.7); Neutrophils % (Auto) 94 % (37-80); Nucleated Red Blood Cell # 0.00 Thou/mm3 (0.00-0.00); Nucleated Red Blood Cell % 0 /100 WBC (0); Platelet Count 178 Thou/mm3 (140-440); RDW Standard Deviation 49.9 fL (35.1-43.9); Red Blood Count 4.77 Miln/mm3 (4.50-5.90); White Blood Count 4.3 Thou/mm3 (3.8-10.6)
[2025-01-10 05:39] LABS: Anion Gap 12 (7-16); BUN/Creatinine Ratio 20 Ratio (12-20); Blood Urea Nitrogen 43 mg/dL (9-23); Calcium 9.5 mg/dL (8.3-10.6); Carbon Dioxide 27.6 mMol/L (20.0-31.0); Chloride 99 mMol/L (98-107); Creatinine (Component) 2.2 mg/dL (0.6-1.3); Glucose 254 mg/dL (74-106); Magnesium 1.6 mg/dL (1.6-2.6); Osmolality,Calculated 297 (275-295); Phosphorous 4.4 mg/dL (2.4-5.1); Potassium 4.9 mMol/L (3.4-5.1); Sodium 139 mMol/L (136-145); eGFR 32 See Note
[2025-01-10 06:11] LABS: Estimated Creatinine Clearance 24.5 mL/min (>60)
[2025-01-10] MEDS: INSULIN DEGLUDEC 5 UNIT/0.05 ML (PER 5 UNITS) SC ×2 (08:25→11:55)
[2025-01-10] MEDS: INSULIN LISPRO (AdmeLOG) 1 UNIT/0.01 ML UNIT SC ×3 (08:26→17:29)
[2025-01-10] MEDS: INSULIN LISPRO (AdmeLOG) 1 UNIT/0.01 ML UNIT 10 UNIT SC (08:27)
[2025-01-10] MEDS: TACROLIMUS 0.5 MG CAPSULE PO ×2 (08:31→21:50)
[2025-01-10] MEDS: TACROLIMUS 1 MG CAPSULE PO ×2 (08:31→21:20)
[2025-01-10] MEDS: ENOXAPARIN SOD INJ 40 MG/0.4 ML SYRINGE SC (08:32)
[2025-01-10] MEDS: PANTOPRAZOLE 40 MG TABLET PO (08:33)
[2025-01-10] MEDS: DAPAGLIFLOZIN PROPANEDIOL 5 MG TABLET 10 MG PO (08:33)
[2025-01-10] MEDS: DOCUSATE SOD 100 MG CAPSULE PO (08:34)
[2025-01-10] MEDS: ATORVASTATIN CALCIUM 20 MG TABLET PO (08:34)
[2025-01-10] MEDS: METOPROLOL SUCCINATE XL 25 MG TABCR PO (08:34)
--- NOTE | 2025-01-10 08:59 | PC.SS ---
rounding note: Patient pending transfer
--- NOTE | 2025-01-10 09:19 | PC.CC ---
Addendum entered by Alireza Funez RN 01/10/25 15:29: 1510: called Sunil and [facility], he stated the CARMEN went to [facility]. We will have to wait for the [employer] dept to process the CARMEN. 1506: spoke to Janie Solo, she informed me that the CARMEN was faxed to [facility] at 1444 today. Original Note: 0917: spoke to Sunil at [facility] Finance depart, he stated pt has not been financially cleared. He stated he will reach out to Janie montenegro [facility] for a CARMEN. 0912: spoke to Janie Solo, she informed me that auth was sent to [facility].
--- NOTE | 2025-01-10 09:46 | ESPR_ITS ---
Documentation for date of: 01/10/25 Subjective Subjective Interval history: History of present illness: 69-year-old male with a past medical history of heart transplant (at [facility] [address] Moise Hou, on immunosuppression), CHF (followed by Dr. Newton outpatient), T2DM, HLD, and GERD who comes in after PCP sent him to [facility] due to concerns for unresolving pneumonia as seen on imaging obtained outpatient. He endorses associated worsening bilateral lower extremity edema and orthopnea approximately over the last few days to week. Per patient, he is on lasix at home but due to worsening renal function it was held. Denies shortness of breath, chest pain/tightness, palpitations. Denies any recent sick contacts but endorses mild coughing of yellow sputum for the last few days. Of note, states that there are months when he does not need to take lasix as he does not have edema and dry weight is presumed to be approximately 195-200 lbs but is currently around 210 lbs. His heart transplant was done approximately 8 years ago at [facility] for presumed significant coronary artery disease and after presenting at that time he received a heart transplant one month later. He has been following Dr. Moise Hou but has been unable to see him due to insurance issues for the last 1.5 years. 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 Additionally, a visit on 09/2024 for chest pain and heaviness prompted a cardiac catheterization which yielded mildly reduced left and systolic dysfunction; EF ~45%. LAD midsegment 40% lesion but otherwise normal appearance in other coronary arteries. No stenting was done and patient was opted for medical management. 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 Nephrology consulted for HENRRY on CKD 3a. 01/08/25: Patient seen and examined at bedside. No complaints this morning, denies shortness of breath or chest pain. Reports that he has not followed up with his transplant specialist at [facility] for almost 2 years due to insurance issues. Also reports that he had symptoms of organ rejection 2 years ago. On exam patient had 3+ pitting edema extending up to his knees bilaterally. Creatinine 1.6 which appears within his baseline (1.2-1.8 since 2019). GFR 43 on admission, improved to 47 after Bumex 1 mg x2. BNP 1119 (baseline 100-300). Continue Bumex as renal function appears to be stable. 01/09/25: Patient seen and examined at bedside. Partner at bedside. Denies shortness of breath and lower extremity edema improved. Cr 1.7 which is still within his baseline. GFR 43. Continue Bumex, may transition to PO Bumex 1 mg on discharge. Attempting transfer to [facility] per primary team for post transplant follow up. 01/10/25: Patient seen and assessed at bedside with partner present. Able to ambulate around room without dyspnea. Lower extremity edema persistent but improved. Creatinine increased to 2.2, hold Bumex today. Encouraged more ambulation, elevation of lower extremities, and compression stockings. Attempting transfer to [facility]. Exam Vital Signs Temp Pulse Resp BP Pulse Ox O2 Del Method 97.6 F 89 18 106/71 97 Room Air 01/10/25 08:00 01/10/25 08:34 01/10/25 08:00 01/10/25 08:34 01/10/25 08:00 01/10/25 04:00 Narrative Exam Physical Exam General: Awake and in no acute distress. Conversational and non-toxic appearing. HEENT: Normocephalic, atraumatic, mucous membranes moist. Heart: Regular rate and rhythm, normal S1 and S2, no murmurs appreciated. S urgical scars on chest and base of neck. Lungs: Clear to auscultation bilaterally. Abdomen: Soft, nondistended, nontender, positive bowel sounds. No guarding or rebound tenderness. Neurologic: Alert and oriented x3, no gross neurological deficit, and patient able to move all 4 extremities. Extremities: 1+ pitting edema bilaterally extending up to knees. Skin: No rash or ecchymoses. Objective Labs 01/10/25 04:20 01/10/25 04:20 Labs: Laboratory Results - last 24 hr 01/10/25 04:20 WBC 4.3 RBC 4.77 Hgb 12.1 L Hct 39.3 L MCV 82 MCH 25.4 MCHC 30.8 L RDW Std Deviation 49.9 H Plt Count 178 Neut % (Auto) 94 H Lymph % (Auto) 5 L [place] % (Auto) 1 Eos % (Auto) 0 Baso % (Auto) 0 Neut # (Auto) 4.0 Lymph # (Auto) 0.2 L [place] # (Auto) 0.0 Eos # (Auto) 0.0 Baso # (Auto) 0.0 Immature Gran # (Auto) 0.03 H Absolute Nucleated RBC 0.00 Immature Gran % 1 H Nucleated RBC % 0 Sodium 139 Potassium 4.9 Chloride 99 Carbon Dioxide 27.6 Anion Gap 12 BUN 43 H Creatinine 2.2 H D Estim Creat Clear Calc 24.5 L eGFR 32 L BUN/Creatinine Ratio 20 Glucose 254 H Calculated Osmolality 297 H Calcium 9.5 Phosphorus 4.4 Magnesium 1.6 Quality Measures Quality Measures none Advance care planning discussed with:: patient Assessment & Plan Assessment Current Active Medications: Generic Name Dose Route Start Last Admin Trade Name Freq PRN Reason Stop Dose Admin Acetaminophen 650 mg 01/07/25 14:46 01/07/25 21:04 Acetaminophen 325 Mg Tablet PO 02/06/25 14:45 650 mg Q6H PRN Administration PAIN (1-3) OR FEVER > 100.4 Atorvastatin Calcium 20 mg 01/08/25 09:00 01/10/25 08:34 Atorvastatin Calcium 20 Mg Tablet PO 02/07/25 08:59 20 mg DAILY JACKIE Administration Protocol Bumetanide 1 mg 01/10/25 09:00 Bumetanide Inj 0.25 Mg/Ml Vial 4 Ml IVP 02/09/25 08:59 On Hold: 01/10/25 09:00 QDAY JACKIE Sirolimus 0.5 Mg 0 ea 01/08/25 09:00 01/10/25 08:31 Tablet PO 02/06/25 20:59 2 tablet QDAY JACKIE Administration Dapagliflozin 10 mg 01/08/25 14:15 01/10/25 08:33 Dapagliflozin Propanediol 5 Mg Tablet PO 02/07/25 14:14 10 mg DAILY JACKIE Administration Dextrose 25 ml 01/07/25 15:28 Dextrose 50%-Water Inj 50 Ml Syringe IV 02/06/25 15:27 Q15MIN PRN BG 50-70 responsive npo pt Dextrose 50 ml 01/07/25 15:28 Dextrose 50%-Water Inj 50 Ml Syringe IV 02/06/25 15:27 Q15MIN PRN BG <50 OR BG <70 & pt unresponsive Docusate Sodium 100 mg 01/09/25 17:25 01/10/25 08:34 Docusate Sod 100 Mg Capsule PO 02/08/25 17:24 100 mg BID PRN Administration CONSTIPATION Protocol Enoxaparin Sodium 40 mg 01/08/25 09:00 01/10/25 08:32 Enoxaparin Sod Inj 40 Mg/0.4 Ml Syringe SC 01/22/25 08:59 40 mg QDAY JACKIE Administration Glucagon 1 mg 01/07/25 15:28 Glucagon Inj 1 Mg Vial IM Q15MIN PRN BG <70, and no IV access Magnesium Sulfate 4 gm in 50 mls @ 12.5 mls/hr 01/10/25 08:45 Magnesium Sulfate Ivpb IV 01/10/25 12:44 X1 ONE Insulin Degludec 10 unit 01/10/25 09:00 Insulin Degludec 5 Unit/0.05 Ml (Per 5 Units) SC 02/09/25 08:59 QDAY [facility] Insulin Human Lispro 0 unit 01/09/25 07:30 01/10/25 08:26 Insulin Lispro (Admelog) 1 Unit/0.01 Ml Unit SC 02/08/25 07:29 10 unit AC [facility] Administration Protocol Insulin Human Lispro 12 unit 01/10/25 11:30 Insulin Lispro (Admelog) 1 Unit/0.01 Ml Unit SC 02/09/25 11:29 [facility] Metoprolol Succinate 25 mg 01/09/25 09:00 01/10/25 08:34 Metoprolol Succinate Xl 25 Mg Tabcr PO 02/08/25 08:59 25 mg QDAY JACKIE Administration Ondansetron HCl 4 mg 01/07/25 14:52 Ondansetron Inj 2 Mg/Ml Inj 2 Ml IVP 02/06/25 14:51 Q6H PRN NAUSEA OR VOMITING Protocol Pantoprazole Sodium 40 mg 01/08/25 09:00 01/10/25 08:33 Pantoprazole 40 Mg Tablet PO 02/07/25 08:59 40 mg QDAY JACKIE Administration Pharmacy Consult 1 each 01/07/25 15:05 Pharmacy Renal Dose Adjustment 1 Ea XX 02/06/25 15:04 PRN PRN CONSULT Prednisone 5 mg 01/08/25 09:00 01/10/25 08:33 Prednisone 5 Mg Tablet PO 02/07/25 08:59 5 mg QDAY JACKIE Administration Tacrolimus 1 mg 01/07/25 21:00 01/10/25 08:31 Tacrolimus 1 Mg Capsule PO 02/06/25 20:59 1 mg Q12H JACKIE Administration Tacrolimus 0.5 mg 01/07/25 21:30 01/10/25 08:31 Tacrolimus 0.5 Mg Capsule PO 02/06/25 21:29 0.5 mg Q12H JACKIE Administration Plan Patient is a 69 year old male with past medical history of heart transplant (at [facility] [address] Moise Hou, on immunosuppression), HFmrEF (EF 45%), remote hx of prostate cancer s/p radiation, T2DM, HLD, and GERD who was admitted 01/07/25 for CHF exacerbation and PNA. Nephrology consulted for HENRRY on CKD 3a. #HENRRY on CKD 3a #Lower extremity edema #Hx heart transplant 03/10 dilated cardiomyopathy - Patient reports that he has been taking Lasix 40 daily for the past month for worsening lower extremity edema but was discontinued 10 days ago by PCP due to mild HENRRY. Only takes Lasix intermittently based on weight and swelling. - Patient also has history of heart transplant at [facility] in 2017 as a result of worsening dilated cardiomyopathy. Reports symptoms of organ rejection about 2 years ago and has not been able to follow up with his transplant specialist for at least 1.5 years. On low dose tacrolimus, sirolimus, and prednisone. - Appears hypervolemic on exam with 3+ pitting edema in lower extremities. - Cr 1.6 on admission which appears to be his baseline (1.2-1.8 since 2019). - GFR 43 -> 47, improved after Bumex. Baseline 51 to greater than 60. - BNP 1119 (baseline 100-300s). 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 Discussed with patient importance of urgent follow up with [facility] transplant specialist to rule out CAV after insurance approval. Per primary team, pending transfer to [facility]. #Acute decompensated heart failure exacerbation #Congestive heart failure #NSTEMI type II, demand ischemia #Sinus tachycardia #Community-acquired pneumonia #History of heart transplant #Type 2 diabetes mellitus, insulin-dependent #Hyperlipidemia - Defer management to primary team Thank you for your consultation, please do not hesitate to reach out if you have any question or concern. Patient plan of care was discussed with the attending physician, Dr. Ronquillo. Martha Fisher DO, PGY-1 Attending Provider Attestation/Addendum Patient currently seen and examined with resident physician Dr. Fisher. Note reviewed, agree with findings and recommendations. Patient currently seen in telemetry. Madeline, my patient at bedside. Patient has significant edema-not quite sure if he has congestive heart failure versus related to chronic allograft rejection. Last seen in the heart transplant center 2 years ago. Recommended to go and see them after discharge. Today patient seems to be feeling much more comfortable. Edema and shortness of breath improved at the expense of renal insufficiency. Agree with holding diuretics today. Patient will be left with some kidney impairment to maintain euvolemic state. Care discussed with primary team. Monitor renal function closely.
[2025-01-10] MEDS: INSULIN LISPRO (AdmeLOG) 1 UNIT/0.01 ML UNIT 12 UNIT SC ×2 (11:58→17:30)
[2025-01-10] MEDS: Magnesium Sulfate 4 GM Ivpb 4 GM/50 ML BAG IV (12:01)
--- NOTE | 2025-01-10 13:44 | ESPR_ITS ---
<Statement entered by Bakari Huff MD - 01/10/25 14:37> No acute overnight events. Seen and examined at bedside and resting comfortably in bed. He saturating well on room air and on examination he continues to have 2+ lower extremity edema, abdominal distention, but no crackles on pulmonary auscultation. CHEM panel shows increase in creatinine from 1.7 to 2.2 and so Bumex was decreased from 1 mg BID to daily. Despite high dose steroid, glucose has not significantly increased but will increase degludec from 5 to 10 units and lispro from 10 to 12 units. Otherwise, transfer still in process and pending authorization. ----- Note reviewed and agree with care plan as documented. Please refer to the note below for further details. Plan discussed with attending physician Dr. Jay Huff MD PGY-2 Internal Medicine Documentation for date of: 01/10/25 Subjective Subjective Interval history: No acute overnight events. Seen and examined at bedside and denies any shortness of breath, chest discomfort, or worsening lower extremity edema. Vital signs remain stable as he is on room air, afebrile, and pulse in 80s. Creatinine noted to increase so will decrease bumex from twice daily to daily. Otherwise, transfer still in process and awaiting insurance authorization. Exam Vital Signs Temp Pulse Resp BP Pulse Ox O2 Del Method 97.4 F 86 17 118/76 97 Room Air 01/10/25 12:00 01/10/25 12:00 01/10/25 12:00 01/10/25 12:00 01/10/25 12:00 01/10/25 12:00 Narrative Exam General: AOx3, no acute distress, able to speak full sentences HEENT: NC/AT, mucous membranes moist, bilateral sclera anicteric Cardiovascular: regular rate and rhythm, S1/S2 present, no murmurs appreciated Pulmonary: clear to auscultation bilaterally, no rales/rhonchi/wheezes Abdominal: soft, non-tender, non-distended, no rebound/guarding, normal bowel sounds present Musculoskeletal: 1-2+ bilateral lower extremity pitting edema to thighs; normal ROM Skin: warm and dry, intact, no rashes Neuro: CN II-XII intact, no focal deficits Objective Labs 01/11/25 05:41 01/11/25 05:41 Labs: Laboratory Results - last 24 hr 01/10/25 04:20 WBC 4.3 RBC 4.77 Hgb 12.1 L Hct 39.3 L MCV 82 MCH 25.4 MCHC 30.8 L RDW Std Deviation 49.9 H Plt Count 178 Neut % (Auto) 94 H Lymph % (Auto) 5 L Garrard % (Auto) 1 Eos % (Auto) 0 Baso % (Auto) 0 Neut # (Auto) 4.0 Lymph # (Auto) 0.2 L Garrard # (Auto) 0.0 Eos # (Auto) 0.0 Baso # (Auto) 0.0 Immature Gran # (Auto) 0.03 H Absolute Nucleated RBC 0.00 Immature Gran % 1 H Nucleated RBC % 0 Sodium 139 Potassium 4.9 Chloride 99 Carbon Dioxide 27.6 Anion Gap 12 BUN 43 H Creatinine 2.2 H D Estim Creat Clear Calc 24.5 L eGFR 32 L BUN/Creatinine Ratio 20 Glucose 254 H Calculated Osmolality 297 H Calcium 9.5 Phosphorus 4.4 Magnesium 1.6 Quality Measures Quality Measures VTE prophylaxis Advance care planning discussed with:: patient Assessment & Plan Assessment Current Active Medications: Generic Name Dose Route Start Last Admin Trade Name Freq PRN Reason Stop Dose Admin Acetaminophen 650 mg 01/07/25 14:46 01/07/25 21:04 Acetaminophen 325 Mg Tablet PO 02/06/25 14:45 650 mg Q6H PRN Administration PAIN (1-3) OR FEVER > 100.4 Atorvastatin Calcium 20 mg 01/08/25 09:00 01/10/25 08:34 Atorvastatin Calcium 20 Mg Tablet PO 02/07/25 08:59 20 mg DAILY JACKIE Administration Protocol Bumetanide 1 mg 01/10/25 09:00 Bumetanide Inj 0.25 Mg/Ml Vial 4 Ml IVP 02/09/25 08:59 On Hold: 01/10/25 09:00 QDAY JACKIE Sirolimus 0.5 Mg 0 ea 01/08/25 09:00 01/10/25 08:31 Tablet PO 02/06/25 20:59 2 tablet QDAY JACKIE Administration Dapagliflozin 10 mg 01/08/25 14:15 01/10/25 08:33 Dapagliflozin Propanediol 5 Mg Tablet PO 02/07/25 14:14 10 mg DAILY JACKIE Administration Dextrose 25 ml 01/07/25 15:28 Dextrose 50%-Water Inj 50 Ml Syringe IV 02/06/25 15:27 Q15MIN PRN BG 50-70 responsive npo pt Dextrose 50 ml 01/07/25 15:28 Dextrose 50%-Water Inj 50 Ml Syringe IV 02/06/25 15:27 Q15MIN PRN BG <50 OR BG <70 & pt unresponsive Docusate Sodium 100 mg 01/09/25 17:25 01/10/25 08:34 Docusate Sod 100 Mg Capsule PO 02/08/25 17:24 100 mg BID PRN Administration CONSTIPATION Protocol Enoxaparin Sodium 40 mg 01/08/25 09:00 01/10/25 08:32 Enoxaparin Sod Inj 40 Mg/0.4 Ml Syringe SC 01/22/25 08:59 40 mg QDAY JACKIE Administration Glucagon 1 mg 01/07/25 15:28 Glucagon Inj 1 Mg Vial IM Q15MIN PRN BG <70, and no IV access Insulin Degludec 10 unit 01/10/25 09:00 01/10/25 11:44 Insulin Degludec 5 Unit/0.05 Ml (Per 5 Units) SC 02/09/25 08:59 Not Given QDAY [facility] Insulin Human Lispro 0 unit 01/09/25 07:30 01/10/25 11:56 Insulin Lispro (Admelog) 1 Unit/0.01 Ml Unit SC 02/08/25 07:29 5 unit AC JACKIE Administration Protocol Insulin Human Lispro 12 unit 01/10/25 11:30 01/10/25 11:58 Insulin Lispro (Admelog) 1 Unit/0.01 Ml Unit SC 02/09/25 11:29 12 unit AC JACKIE Administration Metoprolol Succinate 25 mg 01/09/25 09:00 01/10/25 08:34 Metoprolol Succinate Xl 25 Mg Tabcr PO 02/08/25 08:59 25 mg QDAY JACKIE Administration Ondansetron HCl 4 mg 01/07/25 14:52 Ondansetron Inj 2 Mg/Ml Inj 2 Ml IVP 02/06/25 14:51 Q6H PRN NAUSEA OR VOMITING Protocol Pantoprazole Sodium 40 mg 01/08/25 09:00 01/10/25 08:33 Pantoprazole 40 Mg Tablet PO 02/07/25 08:59 40 mg QDAY JACKIE Administration Pharmacy Consult 1 each 01/07/25 15:05 Pharmacy Renal Dose Adjustment 1 Ea XX 02/06/25 15:04 PRN PRN CONSULT Prednisone 5 mg 01/08/25 09:00 01/10/25 08:33 Prednisone 5 Mg Tablet PO 02/07/25 08:59 5 mg QDAY JACKIE Administration Tacrolimus 1 mg 01/07/25 21:00 01/10/25 08:31 Tacrolimus 1 Mg Capsule PO 02/06/25 20:59 1 mg Q12H JACKIE Administration Tacrolimus 0.5 mg 01/07/25 21:30 01/10/25 08:31 Tacrolimus 0.5 Mg Capsule PO 02/06/25 21:29 0.5 mg Q12H JACKIE Administration Plan 69 year old male with past medical history of heart transplant (at [facility] [address] Moise Hou, on immunosuppression), HFmrEF (EF 45%), remote hx of prostate cancer s/p radiation, T2DM, HLD, and GERD who was admitted 01/07/25 for CHF exacerbation and PNA. #Acute decompensated heart failure exacerbation #Congestive heart failure #NSTEMI type II, demand ischemia #Sinus tachycardia #? Transplant rejection History of heart transplant on immunosuppression since 2017. Has noted increasing bilateral lower extremity edema for 3 days prior to ad mission. Endorsed associated PND and orthopnea but no chest pain. Initial BNP 1119 and troponins peakeda to 0.069, likey demand ischemia in setting of CHF. Echo showed EF 20-25% with grade 2 diastolic dysfunction, down from 30% in 2020. ? Cardiology consulted, appreciate recs ? Bumex 1 mg IV daily ? Strict I/O, fluid restriction (1.5 L daily), daily weights ? Keep Mg > 2, K > 4 ? Start dapagliflozin 10mg q24h ? Solumedrol 250 mg x1 due to concerns of rejection ? Transfer to [facility] with accepting physician Dr. Moise Hou for further workup regarding CHF exacerbation vs transplant rejection #Community-acquired pneumonia 3 day history of cough with yellow sputum production. On immunosuppressive medications s/p transplant, thus low threshold for pneumonia suspicion despite afebrile and VSS. ? Levoquine 750 mg q24 (01/08-01/15, on day 1) ? Follow-up blood cultures #Chronic kidney disease #Acute on chronic kidney injury Baseline creatinine and GFR appear to have significant fluctuations but PCP held lasix in light of worsening renal function. Given that patient is on nephrotoxic drugs in conjunction with HENRRY, will consult nephrology. ? Nephrology consulted, appreciate recommendations ? Renal dose medications ? When possible, avoid nephrotoxic agents ? Consulted pharmacy regarding Levoquine dosing, 750mg q 24 okay given creatinine clearance rate #History of heart transplant #Acute on chronic organ rejcection History of heart transplant [address] Moise Hou at [facility] and patient unclear of exact reason why but suspect to be due to severe CAD at that time. 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 ? Resume home immunosuppression medication regimen ? Tacrolimus 1.0 mg BID + Tacrolimus 0.5 mg BID (confirmed by patient) ? Sirolimus 0.5 mg BID ? Prednisone 5 mg daily #Type 2 diabetes mellitus, insulin-dependent On insulin lispro at home, not taking glargine A1c 10% ? SSI ? Hypoglycemic protocol in place ? Degludec increased from 5 to 10 units ? Lispro with meals increased from 10 to 12 units #Hyperlipidemia ? Resumed home rosuvastatin 5 mg daily ? Follow-up lipid panel Hospital management: Disposition: pending transfer, diuresis, steroids, glucose checks Diet: low sodium Lines: PIV DVT prophylaxis: lovenox GI prophylaxis: pantoprazole 40 mg daily Zelaya: not indicated CODE STATUS: full code Patient plan of care was discussed with the attending physician, Dr. Thompson & senior resident Dr. Phillip Wan MD PGY-1 Attending Provider Attestation/Addendum I, Nazanin Thompson, DO, attest that I was physically present for the price portions of the service and evaluated the patient with the resident and I reviewed and discussed the case with the resident and agree with the resident's findings and plans of care as documented above Patient seen and evaluated this AM. He states that he is feeling well. No acute events overnight. B/l LE edema is much improve, currently 1+ pitting edema. Blood glucose is well controlled. Slight HENRRY noted with cr of 2.2. Will decrease bumex dosing to once daily. Patient remains stable to transfer to [facility].
--- NOTE | 2025-01-10 17:30 | ESDS_ITS ---
<Statement entered by Nazanin Thompson DO - 01/11/25 07:14> I, Nazanin Thompson DO, attest that I was physically present for the price portions of the service and evaluated the patient with the resident and I reviewed and discussed the case with the resident and agree with the resident's findings and plans of care as documented above <Statement entered by Bakari Huff MD - 01/10/25 17:44> Note reviewed and agree with care plan as documented. Please refer to the note below for further details. Plan discussed with attending physician Dr. Jay Huff MD PGY-2 Internal Medicine Planned Discharge Date 01/10/25 DS: Providers Provider Date of admission: 01/07/25 14:59 Primary care physician: Jordan Vyas MD Admitting Provider: Nazanin Thompson DO Attending Provider on Admission: Nazanin Thompson DO Consults: 01/07/25 13:35 Consult to Cardiology Stat Comment: Consulting Provider: Gabino Newton 01/07/25 15:02 Consult to Nephrology Stat Comment: Consulting Provider: Ramon Ronquillo 01/09/25 13:51 Referral - Broadcast Supervisor Stat Service Needed for Transfer: Cardiology Addl Comments:: Transfer to [facility] Accepting Physician Dr. Moise Hou Pt w/ PMH heart transplant previously managed by Dr. Moise Hou presents for CHF exacerbation, concerns for Heart Failure vs rejection. Attending Provider on DC: Nazanin Thompson DO Discharging Provider: Nazanin Thompson DO DS: Diagnosis Problem List Completed Was Problem List Reviewed/Reconciled?: Yes Hospital Course Hospital Course Hospital course: Mr. Rosa Foss is a 69 M w/ a PMH history of cardiac transplantation at [facility] in 2017 for heart failure, on immunosuppresion medication with tacrolimus, sirolimus here for CHF exacerbation and possible organ rejection. He was admitted to [facility] for treatment for heart failure, with ECHO revealing ~25% EF from a previous ~35% in 2019. Home meds were resumed with bumetanide changed from furosemide 40mg home regimen; dapagliflozin 10mg q24h was added ot regimen. A1c drawn at admission yielded 10%. Consultation with his previous material movers, Dr. Moise Hou(who managed him post-transplant), provided industrial relations counselor on starting solumedrol 250mg to treat acute symptoms of rejection and a cardiac catheterization. Extensive talks held with Dr. Hou urged a transfer to [facility] for higher level of care that include, but are limited to repeat cardiac catheterization, alteration in immunosuppresion medication and cardiac biopsy. Initiation with transfer center started. 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 Thompson & senior resident Dr. Phillip Wan MD PGY-1 Time Spent with Patient Time attestation: Total time spent providing and/or coordinating discharge services: Time spent: Greater than 30 minutes Exam Vital Signs Temp Pulse Resp BP Pulse Ox O2 Del Method 97.4 F 86 17 118/76 97 Room Air 01/10/25 12:01/10/25 12:00 01/10/25 12:01/10/25 12:00 01/10/25 12:00 01/10/25 12:00 Narrative Exam General: alert and oriented to self/place/year, no acute distress, able to speak full sentences; cheerful, understanding of plans for further medical management HEENT: NC/AT, mucous membranes moist, bilateral sclera anicteric Cardiovascular: regular rate and rhythm, S1/S2 present, no murmurs appreciated Pulmonary: clear to auscultation bilaterally, no rales/rhonchi/wheezes Abdominal: soft, nontender, present bowel sounds Musculoskeletal: +2 peripheral edema bilaterally Skin: Warm, well-perfused Neuro: Grossly nonfocal. Moving all 4 extremities. CN not formally tested but appear grossly intact. Psychiatric: Cooperative, appropriate affect. Discharge Plan Plan Patient Disposition: Xfer Other Facility Pt Being Transferred to: [facility] Service Needed for Transfer: Cardiology Disposition Comment: Discharge home to follow up with [facility] with Dr. Hou Patient condition on transfer: Stable Prescriptions/Referrals Prescriptions/Med Rec: New dapagliflozin propanediol 10 mg tablet 10 mg PO DAILY 30 Days Qty: 30 0RF Continued prednisolone 5 mg tablet 5 mg PO QDAY omeprazole 20 MG capsule,delayed release(DR/EC) 20 mg PO QDAY Qty: 0 insulin aspart U-100 [Novolog FlexPen U-100 Insulin] 100 unit/mL (3 mL) Insulin Pen 10 unit SUBCUT TID tacrolimus [Prograf] 1 mg Capsule 3 mg PO Q12H sirolimus 0.5 mg tablet 1 mg PO Q12H Patient Comments: TAKE 2 TABLETS BY MOUTH DAILY. rosuvastatin 20 mg tablet 5 mg PO DAILY Patient Comments: TAKE 1 TABLET BY MOUTH EVERYDAY AT BEDTIME tacrolimus 0.5 mg capsule 0.5 mg PO Q12H Patient Comments: TAKE 1 CAPSULE (0.5 MG TOTAL) BY MOUTH TWO (2) TIMES DAILY. tramadol 50 mg tablet 50 mg PO DAILY PRN (Reason: pain) Patient Comments: TAKE 1 TABLET NEEDED ORALLY ONCE A DAY NEEDED amlodipine 5 mg tablet 5 mg PO DAILY Patient Comments: TAKE 1 TABLET BY MOUTH EVERY DAY carvedilol 6.25 mg tablet 6.25 mg PO BID Patient Comments: TAKE 1 TABLET BY MOUTH TWICE A DAY WITH FOOD Discontinued gabapentin 100 mg capsule 50 mg PO DAILY Victoza 2-Jose Guadalupe 0.6 mg/0.1 mL (18 mg/3 mL) pen injector 1.2 mg subcut QDAY insulin glargine [Lantus U-100 Insulin] 100 unit/mL Solution 26 unit SUBCUT QPM No Action amoxicillin-pot clavulanate 875-125 mg tablet 1 tab PO Q12H Patient Comments: TAKE 1 TABLET BY MOUTH EVERY 12 HOURS Referrals: Jordan Vyas MD [Primary Care Provider, Family Practice] Patient/Caregiver Discharge Instructions Discharge Activity: resume usual activities Other Discharge Activity Instructions:: -Medical management per team at [facility], as well as post-visit recommendations regarding activity and disposition Education Materials: Low-Salt Choices, Diabetes: Caring for Your Body, Heart Failure: Evaluating Your Heart Print Language: Irish Stand Alone Forms: Martine Award Info., Patient Portal Info Letter Quality Discharge Quality Measures VTE prophylaxis
[2025-01-11] VITALS (7 sets, daily range): BP systolic 94–112; BP diastolic 65–81; PULSE 76–93; RESP 17–19; TEMP 36.1–36.5; O2SAT 95–98; BMI 32.3
[2025-01-11 07:01] LABS: Basophils # (Auto) 0.0 Thou/mm3 (0.0-0.2); Basophils % (Auto) 0 % (0-2.5); Eosinophils # (Auto) 0.0 Thou/mm3 (0.0-0.5); Eosinophils % (Auto) 0 % (0-10); Hematocrit 38.8 % (41.0-53.0); Hemoglobin 11.9 g/dL (13.5-16.0); Immature Granulocytes Auto 0.04 Thou/mm3 (0.00-0.00); Lymphocytes # (Auto) 0.5 Thou/mm3 (1.0-4.8); Lymphocytes % (Auto) 6 % (10-50); Mean Corpuscular HGB Conc 30.7 g/dl (31.0-37.0); Mean Corpuscular Hemoglobin 25.5 pg (25.0-35.0); Mean Corpuscular Volume 83 fL (80-100); Monocytes # (Auto) 0.6 Thou/mm3 (0.0-0.8); Monocytes % (Auto) 8 % (0-12); Neutrophils # (Auto) 7.3 Thou/mm3 (1.8-7.7); Neutrophils % (Auto) 86 % (37-80); Nucleated Red Blood Cell # 0.00 Thou/mm3 (0.00-0.00); Nucleated Red Blood Cell % 0 /100 WBC (0); Platelet Count 214 Thou/mm3 (140-440); RDW Standard Deviation 51.9 fL (35.1-43.9); Red Blood Count 4.66 Miln/mm3 (4.50-5.90); White Blood Count 8.5 Thou/mm3 (3.8-10.6)
[2025-01-11 07:25] LABS: Alanine Aminotransferase 18 U/L (10-49); Albumin, Serum 4.4 gm/dL (3.4-4.8); Albumin/Globulin Ratio 1.6 (1.2-2.2); Alkaline Phosphatase 120 U/L (46-116); Anion Gap 12 (7-16); Aspartate Amino Transferase 18 U/L (0-34); BUN/Creatinine Ratio 30 Ratio (12-20); Bilirubin,Total 0.5 mg/dL (0.3-1.2); Blood Urea Nitrogen 59 mg/dL (9-23); Calcium 9.5 mg/dL (8.3-10.6); Calcium (Corrected) 9.5 mg/dL (8.5-10.1); Carbon Dioxide 28.2 mMol/L (20.0-31.0); Chloride 99 mMol/L (98-107); Creatinine (Component) 2.0 mg/dL (0.6-1.3); Estimated Creatinine Clearance 40.4 mL/min (>60); Globulin 2.8 gm/dL (2.3-3.5); Glucose 213 mg/dL (74-106); Magnesium 2.4 mg/dL (1.6-2.6); Osmolality,Calculated 300 (275-295); Phosphorous 5.5 mg/dL (2.4-5.1); Potassium 4.3 mMol/L (3.4-5.1); Sodium 139 mMol/L (136-145); Total Protein 7.2 gm/dL (5.7-8.2); eGFR 36 See Note
[2025-01-11] MEDS: INSULIN LISPRO (AdmeLOG) 1 UNIT/0.01 ML UNIT 12 UNIT SC (07:58)
[2025-01-11] MEDS: INSULIN LISPRO (AdmeLOG) 1 UNIT/0.01 ML UNIT SC ×2 (07:58→11:59)
--- NOTE | 2025-01-11 08:32 | PC.CM ---
I called [facility] to follow up on the transfer request. I spoke to Sunil from the finance department. He states the letter of agreement contract was submitted yesterday at 2:45. He states it will take a least 2 days and [facility] department does not work over the weekend. He states nothing will happen until Monday. I updated the warehouse delivery manager and charge nurses.
[2025-01-11] MEDS: ENOXAPARIN SOD INJ 40 MG/0.4 ML SYRINGE SC (08:57)
[2025-01-11] MEDS: INSULIN DEGLUDEC 5 UNIT/0.05 ML (PER 5 UNITS) 10 UNIT SC (08:59)
[2025-01-11] MEDS: PANTOPRAZOLE 40 MG TABLET PO (09:00)
[2025-01-11] MEDS: ATORVASTATIN CALCIUM 20 MG TABLET PO (09:00)
[2025-01-11] MEDS: METOPROLOL SUCCINATE XL 25 MG TABCR PO (09:00)
[2025-01-11] MEDS: DAPAGLIFLOZIN PROPANEDIOL 5 MG TABLET 10 MG PO (09:00)
[2025-01-11] MEDS: TACROLIMUS 1 MG CAPSULE PO ×2 (09:01→20:45)
[2025-01-11] MEDS: TACROLIMUS 0.5 MG CAPSULE PO ×2 (09:01→20:45)
--- NOTE | 2025-01-11 09:20 | PC.NURSE ---
Pt weighed on bedscale: 215lbs at 0920am
[2025-01-11] MEDS: DOCUSATE SOD 100 MG CAPSULE PO (09:23)
--- NOTE | 2025-01-11 11:24 | PD.RESPRO ---
Documentation for date of: 01/11/25 Subjective Subjective Interval history: History of present illness: 69-year-old male with a past medical history of heart transplant (at [facility] [address] Moise Hou, on immunosuppression), CHF (followed by Dr. Newton outpatient), T2DM, HLD, and GERD who comes in after PCP sent him to [facility] due to concerns for unresolving pneumonia as seen on imaging obtained outpatient. He endorses associated worsening bilateral lower extremity edema and orthopnea approximately over the last few days to week. Per patient, he is on lasix at home but due to worsening renal function it was held. Denies shortness of breath, chest pain/tightness, palpitations. Denies any recent sick contacts but endorses mild coughing of yellow sputum for the last few days. Of note, states that there are months when he does not need to take lasix as he does not have edema and dry weight is presumed to be approximately 195-200 lbs but is currently around 210 lbs. His heart transplant was done approximately 8 years ago at [facility] for presumed significant coronary artery disease and after presenting at that time he received a heart transplant one month later. He has been following Dr. Moise Hou but has been unable to see him due to insurance issues for the last 1.5 years. He also sees Dr. Newton as his general it coordinator outpatient. Additionally, a visit on 09/2024 for chest pain and heaviness prompted a cardiac catheterization which yielded mildly reduced left and systolic dysfunction; EF ~45%. LAD midsegment 40% lesion but otherwise normal appearance in other coronary arteries. No stenting was done and patient was opted for medical management. 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 Nephrology consulted for HENRRY on CKD 3a. 01/08/25: Patient seen and examined at bedside. No complaints this morning, denies shortness of breath or chest pain. Reports that he has not followed up with his transplant specialist at [facility] for almost 2 years due to insurance issues. Also reports that he had symptoms of organ rejection 2 years ago. On exam patient had 3+ pitting edema extending up to his knees bilaterally. Creatinine 1.6 which appears within his baseline (1.2-1.8 since 2019). GFR 43 on admission, improved to 47 after Bumex 1 mg x2. BNP 1119 (baseline 100-300). Continue Bumex as renal function appears to be stable. 01/09/25: Patient seen and examined at bedside. Partner at bedside. Denies shortness of breath and lower extremity edema improved. Cr 1.7 which is still within his baseline. GFR 43. Continue Bumex, may transition to PO Bumex 1 mg on discharge. Attempting transfer to [facility] per primary team for post transplant follow up. 01/10/25: Patient seen and assessed at bedside with partner present. Able to ambulate around room without dyspnea. Lower extremity edema persistent but improved. Creatinine increased to 2.2, hold Bumex today. Encouraged more ambulation, elevation of lower extremities, and compression stockings. Attempting transfer to [facility]. 01/11/25: Patient seen and assessed, sitting up in chair with partner present in room. Ambulating well without dyspnea. Lower extremity edema stable since yesterday. UOP 550 cc overnight but patient and partner endorse more unrecorded output. Strict INOs. Creatinine improved to 2.0. HbA1c 10.0, on Farxiga 10mg daily. Will start Januvia 50 mg daily in light of worsening renal function (GFR 36), avoid metformin, sulfonylureas, and SGLT2. Discussed with primary team, will restart Bumex 0.5 mg daily or 1 mg every other day. Pending insurance authorization for [facility] transfer. Exam Vital Signs Temp Pulse Resp BP Pulse Ox O2 Del Method 97.0 F 85 19 112/77 98 Room Air 01/11/25 08:00 01/11/25 09:00 01/11/25 08:00 01/11/25 09:00 01/11/25 08:00 01/11/25 08:00 Narrative Exam Physical Exam General: Awake and in no acute distress. Conversational and non-toxic appearing. HEENT: Normocephalic, atraumatic, mucous membranes moist. Heart: Regular rate and rhythm, normal S1 and S2, no murmurs appreciated. Surgical scars on chest and base of neck. Lungs: Clear to auscultation bilaterally. Abdomen: Soft, nondistended, nontender, positive bowel sounds. No guarding or rebound tenderness. Neurologic: Alert and oriented x3, no gross neurological deficit, and patient able to move all 4 extremities. Extremities: 2+ pitting edema bilaterally extending up to knees. Skin: No rash or ecchymoses. Objective Labs 01/12/25 05:33 01/12/25 05:33 Labs: Laboratory Results - last 24 hr 01/11/25 05:41 WBC 8.5 D RBC 4.66 Hgb 11.9 L Hct 38.8 L MCV 83 MCH 25.5 MCHC 30.7 L RDW Std Deviation 51.9 H Plt Count 214 D Neut % (Auto) 86 H Lymph % (Auto) 6 L [place] % (Auto) 8 Eos % (Auto) 0 Baso % (Auto) 0 Neut # (Auto) 7.3 Lymph # (Auto) 0.5 L [place] # (Auto) 0.6 Eos # (Auto) 0.0 Baso # (Auto) 0.0 Immature Gran # (Auto) 0.04 H Absolute Nucleated RBC 0.00 Immature Gran % 1 H Nucleated RBC % 0 Sodium 139 Potassium 4.3 D Chloride 99 Carbon Dioxide 28.2 Anion Gap 12 BUN 59 H Creatinine 2.0 H Estim Creat Clear Calc 40.4 L eGFR 36 L BUN/Creatinine Ratio 30 H Glucose 213 H Calculated Osmolality 300 H Calcium 9.5 Corrected Calcium 9.5 Phosphorus 5.5 H Magnesium 2.4 Total Bilirubin 0.5 AST 18 ALT 18 Alkaline Phosphatase 120 H Total Protein 7.2 Albumin 4.4 Globulin 2.8 Albumin/Globulin Ratio 1.6 Quality Measures Quality Measures VTE prophylaxis Advance care planning discussed with:: patient and significant other Assessment & Plan Assessment Current Active Medications: Generic Name Dose Route Start Last Admin Trade Name Freq PRN Reason Stop Dose Admin Acetaminophen 650 mg 01/07/25 14:46 01/07/25 21:04 Acetaminophen 325 Mg Tablet PO 02/06/25 14:45 650 mg Q6H PRN Administration PAIN (1-3) OR FEVER > 100.4 Atorvastatin Calcium 20 mg 01/08/25 09:00 01/11/25 09:00 Atorvastatin Calcium 20 Mg Tablet PO 02/07/25 08:59 20 mg DAILY JACKIE Administration Protocol Bumetanide 1 mg 01/10/25 09:00 Bumetanide Inj 0.25 Mg/Ml Vial 4 Ml IVP 02/09/25 08:59 On Hold: 01/10/25 09:00 QDAY JACKIE Sirolimus 0.5 Mg 0 ea 01/08/25 09:00 01/11/25 09:02 Tablet PO 02/06/25 20:59 2 tablet QDAY JACKIE Administration Dapagliflozin 10 mg 01/08/25 14:15 01/11/25 09:00 Dapagliflozin Propanediol 5 Mg Tablet PO 02/07/25 14:14 10 mg DAILY JACKIE Administration Dextrose 25 ml 01/07/25 15:28 Dextrose 50%-Water Inj 50 Ml Syringe IV 02/06/25 15:27 Q15MIN PRN BG 50-70 responsive npo pt Dextrose 50 ml 01/07/25 15:28 Dextrose 50%-Water Inj 50 Ml Syringe IV 02/06/25 15:27 Q15MIN PRN BG <50 OR BG <70 & pt unresponsive Docusate Sodium 100 mg 01/09/25 17:25 01/11/25 09:23 Docusate Sod 100 Mg Capsule PO 02/08/25 17:24 100 mg BID PRN Administration CONSTIPATION Protocol Enoxaparin Sodium 40 mg 01/08/25 09:00 01/11/25 08:57 Enoxaparin Sod Inj 40 Mg/0.4 Ml Syringe SC 01/22/25 08:59 40 mg QDAY JACKIE Administration Glucagon 1 mg 01/07/25 15:28 Glucagon Inj 1 Mg Vial IM Q15MIN PRN BG <70, and no IV access Insulin Degludec 10 unit 01/10/25 09:00 01/11/25 08:59 Insulin Degludec 5 Unit/0.05 Ml (Per 5 Units) SC 02/09/25 08:59 10 unit QDAY [facility] Administration Insulin Human Lispro 0 unit 01/09/25 07:30 01/11/25 07:58 Insulin Lispro (Admelog) 1 Unit/0.01 Ml Unit SC 02/08/25 07:29 4 unit AC [facility] Administration Protocol Insulin Human Lispro 10 unit 01/11/25 11:30 Insulin Lispro (Admelog) 1 Unit/0.01 Ml Unit SC 02/10/25 11:29 AC [facility] Metoprolol Succinate 25 mg 01/09/25 09:00 01/11/25 09:00 Metoprolol Succinate Xl 25 Mg Tabcr PO 02/08/25 08:59 25 mg QDAY JACKIE Administration Ondansetron HCl 4 mg 01/07/25 14:52 Ondansetron Inj 2 Mg/Ml Inj 2 Ml IVP 02/06/25 14:51 Q6H PRN NAUSEA OR VOMITING Protocol Pantoprazole Sodium 40 mg 01/08/25 09:00 01/11/25 09:00 Pantoprazole 40 Mg Tablet PO 02/07/25 08:59 40 mg QDAY JACKIE Administration Pharmacy Consult 1 each 01/07/25 15:05 Pharmacy Renal Dose Adjustment 1 Ea XX 02/06/25 15:04 PRN PRN CONSULT Prednisone 5 mg 01/08/25 09:00 01/11/25 09:00 Prednisone 5 Mg Tablet PO 02/07/25 08:59 5 mg QDAY JACKIE Administration Sitagliptin Phosphate 50 mg 01/11/25 11:15 Sitagliptin Phosphate 50 Mg Tablet PO 02/10/25 11:14 QDAY JACKIE Tacrolimus 1 mg 01/07/25 21:00 01/11/25 09:01 Tacrolimus 1 Mg Capsule PO 02/06/25 20:59 1 mg Q12H JACKIE Administration Tacrolimus 0.5 mg 01/07/25 21:30 01/11/25 09:01 Tacrolimus 0.5 Mg Capsule PO 02/06/25 21:29 0.5 mg Q12H JACKIE Administration Plan Patient is a 69 year old male with past medical history of heart transplant (at [facility] [address] 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 Nephrology consulted for HENRRY on CKD 3a. #HENRRY on CKD 3a #Lower extremity edema #Hx heart transplant 03/10 dilated cardiomyopathy - Patient reports that he has been taking Lasix 40 daily for the past month for worsening lower extremity edema but was discontinued 10 days ago by PCP due to mild HENRRY. Only takes Lasix intermittently based on weight and swelling. - Patient also has history of heart transplant at [facility] in 2017 as a result of worsening dilated cardiomyopathy. Reports symptoms of organ rejection about 2 years ago and has not been able to follow up with his transplant specialist for at least 1.5 years. On low dose tacrolimus, sirolimus, and prednisone. - Appears hypervolemic on exam with 3+ pitting edema in lower extremities. - Cr 1.6 on admission which appears to be his baseline (1.2-1.8 since 2019). - GFR 43 -> 47 -> 36 (baseline 51 to greater than 60). - BNP 1119 (baseline 100-300s). 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 Plan: - Can resume Bumex 0.5 mg daily or 1 mg every other day for persistent lower extremity edema as creatinine function has improved. - Continue Farxiga 10 mg daily and start Januvia 50 mg daily for diabetes control iso HENRRY on CKD - Fluid restriction 1500 mL - Strict INOs - Avoid nephrotoxic agents - Continue to monitor renal function - Given lack of follow up with transplant specialist and history of organ rejection in the past, there is also concern for cardiac allograft vasculopathy (CAV) from chronic heart transplant rejection. Discussed with patient importance of urgent follow up with [facility] transplant specialist to rule out CAV after insurance approval. Per primary team, pending transfer to [facility]. #Acute decompensated heart failure exacerbation #Congestive heart failure #NSTEMI type II, demand ischemia #Sinus tachycardia #Community-acquired pneumonia #History of heart transplant #Type 2 diabetes mellitus, insulin-dependent #Hyperlipidemia - Defer management to primary team Thank you for your consultation, please do not hesitate to reach out if you have any question or concern. Patient plan of care was discussed with the attending physician, Dr. Ronquillo. Martha Fisher DO, PGY-1 Attending Provider Attestation/Addendum Patient currently seen and examined with resident physician Dr. Fisher. Note reviewed, agree with findings and recommendations. Patient currently seen in telemetry. Madeline, my patient at bedside. Patient has significant edema-not quite sure if he has congestive heart failure versus related to chronic allograft rejection. Last seen in the heart transplant center 2 years ago. Recommended to go and see them after discharge. Today patient seems to be feeling much more comfortable. Edema and shortness of breath improved at the expense of renal insufficiency. Agree with holding diuretics today. Patient will be left with some kidney impairment to maintain euvolemic state. Care discussed with primary team. Noted plans for transfer to [facility] heart transplant service is pending. Monitor renal function closely.
[2025-01-11] MEDS: INSULIN LISPRO (AdmeLOG) 1 UNIT/0.01 ML UNIT 10 UNIT SC ×2 (12:00→17:50)
--- NOTE | 2025-01-11 13:42 | ESPR_ITS ---
<Statement entered by Randy Coello MD - 01/11/25 14:43> Patient today shows significant improvement of his lower limb extremites and abdominal distention, denied any orthopnea, saturating well on room air. His Bumex was held yesterday due to increase in serum creatinine to 2.2 today is 2.0 nephrology recommended to resume Bumex p.o. 1 mg daily with close follow-up on the In/Out. His fasting blood sugar today is 213 from 250. Will continue the patient on insulin sliding scale in addition insulin 10 units before meal with insulin degludec 10 units daily. Pending transfer to [facility]. - Patient's plan and care discussed with my attending, Dr. Jay Coello MD Internal Medicine PGY-3 Documentation for date of: 01/11/25 Subjective Subjective Interval history: Mr. Foss continues to improve, pitting edema has greatly improved and he continues to ambulate. Does not endorse orthopnea nor shortness of breath at rest. He understands the plan for continued management pending insurance clearance before transfer. Exam Vital Signs Temp Pulse Resp BP Pulse Ox O2 Del Method 97.0 F 85 19 112/77 98 Room Air 01/11/25 08:00 01/11/25 09:00 01/11/25 08:00 01/11/25 09:00 01/11/25 08:00 01/11/25 08:00 Narrative Exam General: alert and oriented to self/place/year, no acute distress, able to speak full sentences; GCS 15 AxOx4 HEENT: NC/AT, mucous membranes moist, bilateral sclera anicteric Cardiovascular: regular rate and rhythm, S1/S2 present, no murmurs appreciated Pulmonary: clear to auscultation bilaterally, no rales/rhonchi/wheezes Abdominal: soft, nontender, present bowel sounds Musculoskeletal: +1 bilateral pitting edema without skin changes Skin: Warm, well-perfused Objective Labs 01/11/25 05:41 01/11/25 05:41 Labs: Laboratory Results - last 24 hr 01/11/25 05:41 WBC 8.5 D RBC 4.66 Hgb 11.9 L Hct 38.8 L MCV 83 MCH 25.5 MCHC 30.7 L RDW Std Deviation 51.9 H Plt Count 214 D Neut % (Auto) 86 H Lymph % (Auto) 6 L [place] % (Auto) 8 Eos % (Auto) 0 Baso % (Auto) 0 Neut # (Auto) 7.3 Lymph # (Auto) 0.5 L [place] # (Auto) 0.6 Eos # (Auto) 0.0 Baso # (Auto) 0.0 Immature Gran # (Auto) 0.04 H Absolute Nucleated RBC 0.00 Immature Gran % 1 H Nucleated RBC % 0 Sodium 139 Potassium 4.3 D Chloride 99 Carbon Dioxide 28.2 Anion Gap 12 BUN 59 H Creatinine 2.0 H Estim Creat Clear Calc 40.4 L eGFR 36 L BUN/Creatinine Ratio 30 H Glucose 213 H Calculated Osmolality 300 H Calcium 9.5 Corrected Calcium 9.5 Phosphorus 5.5 H Magnesium 2.4 Total Bilirubin 0.5 AST 18 ALT 18 Alkaline Phosphatase 120 H Total Protein 7.2 Albumin 4.4 Globulin 2.8 Albumin/Globulin Ratio 1.6 Quality Measures Quality Measures VTE prophylaxis Advance care planning discussed with:: patient and significant other Assessment & Plan Problem List (1) CHF (congestive heart failure): Qualifiers: Heart failure chronicity: unspecified Heart failure type: unspecified Qualified Code(s): I50.9 - Heart failure, unspecified Status: Acute (2) History of heart transplant: Status: Acute Assessment Current Active Medications: Generic Name Dose Route Start Last Admin Trade Name Freq PRN Reason Stop Dose Admin Acetaminophen 650 mg 01/07/25 14:46 01/07/25 21:04 Acetaminophen 325 Mg Tablet PO 02/06/25 14:45 650 mg Q6H PRN Administration PAIN (1-3) OR FEVER > 100.4 Atorvastatin Calcium 20 mg 01/08/25 09:00 01/11/25 09:00 Atorvastatin Calcium 20 Mg Tablet PO 02/07/25 08:59 20 mg DAILY JACKIE Administration Protocol Bumetanide 1 mg 01/12/25 09:00 Bumetanide 0.5 Mg Tablet PO 02/11/25 08:59 QDAY JACKIE Sirolimus 0.5 Mg 0 ea 01/08/25 09:00 01/11/25 09:02 Tablet PO 02/06/25 20:59 2 tablet QDAY JACKIE Administration Dapagliflozin 10 mg 01/08/25 14:15 01/11/25 09:00 Dapagliflozin Propanediol 5 Mg Tablet PO 02/07/25 14:14 10 mg DAILY JACKIE Administration Dextrose 25 ml 01/07/25 15:28 Dextrose 50%-Water Inj 50 Ml Syringe IV 02/06/25 15:27 Q15MIN PRN BG 50-70 responsive npo pt Dextrose 50 ml 01/07/25 15:28 Dextrose 50%-Water Inj 50 Ml Syringe IV 02/06/25 15:27 Q15MIN PRN BG <50 OR BG <70 & pt unresponsive Docusate Sodium 100 mg 01/09/25 17:25 01/11/25 09:23 Docusate Sod 100 Mg Capsule PO 02/08/25 17:24 100 mg BID PRN Administration CONSTIPATION Protocol Enoxaparin Sodium 40 mg 01/08/25 09:00 01/11/25 08:57 Enoxaparin Sod Inj 40 Mg/0.4 Ml Syringe SC 01/22/25 08:59 40 mg QDAY JACKIE Administration Glucagon 1 mg 01/07/25 15:28 Glucagon Inj 1 Mg Vial IM Q15MIN PRN BG <70, and no IV access Insulin Degludec 10 unit 01/10/25 09:00 01/11/25 08:59 Insulin Degludec 5 Unit/0.05 Ml (Per 5 Units) SC 02/09/25 08:59 10 unit QDAY JACKIE Administration Insulin Human Lispro 0 unit 01/09/25 07:30 01/11/25 11:59 Insulin Lispro (Admelog) 1 Unit/0.01 Ml Unit SC 02/08/25 07:29 6 unit AC JACKIE Administration Protocol Insulin Human Lispro 10 unit 01/11/25 11:30 01/11/25 12:00 Insulin Lispro (Admelog) 1 Unit/0.01 Ml Unit SC 02/10/25 11:29 10 unit AC JACKIE Administration Metoprolol Succinate 25 mg 01/09/25 09:00 01/11/25 09:00 Metoprolol Succinate Xl 25 Mg Tabcr PO 02/08/25 08:59 25 mg QDAY JACKIE Administration Ondansetron HCl 4 mg 01/07/25 14:52 Ondansetron Inj 2 Mg/Ml Inj 2 Ml IVP 02/06/25 14:51 Q6H PRN NAUSEA OR VOMITING Protocol Pantoprazole Sodium 40 mg 01/08/25 09:00 01/11/25 09:00 Pantoprazole 40 Mg Tablet PO 02/07/25 08:59 40 mg QDAY JACKIE Administration Pharmacy Consult 1 each 01/07/25 15:05 Pharmacy Renal Dose Adjustment 1 Ea XX 02/06/25 15:04 PRN PRN CONSULT Prednisone 5 mg 01/08/25 09:00 01/11/25 09:00 Prednisone 5 Mg Tablet PO 02/07/25 08:59 5 mg QDAY JACKIE Administration Sitagliptin Phosphate 50 mg 01/11/25 11:15 01/11/25 12:00 Sitagliptin Phosphate 50 Mg Tablet PO 02/10/25 11:14 50 mg QDAY JACKIE Administration Tacrolimus 1 mg 01/07/25 21:00 01/11/25 09:01 Tacrolimus 1 Mg Capsule PO 02/06/25 20:59 1 mg Q12H JACKIE Administration Tacrolimus 0.5 mg 01/07/25 21:30 01/11/25 09:01 Tacrolimus 0.5 Mg Capsule PO 02/06/25 21:29 0.5 mg Q12H JACKIE Administration Plan 69 year old male with past medical history of heart transplant (at [facility] [address] Moise Hou, on immunosuppression), HFmrEF (EF 45%), remote hx of prostate cancer s/p radiation, T2DM, HLD, and GERD who was admitted 01/07/25 for CHF exacerbation and PNA. #Acute decompensated heart failure exacerbation #Congestive heart failure #NSTEMI type II, demand ischemia #Sinus tachycardia #? Transplant rejection History of heart transplant on immunosuppression since 2017. Has noted increasing bilateral lower extremity edema for 3 days prior to ad mission. Endorsed associated PND and orthopnea but no chest pain. Initial BNP 1119 and troponins peakeda to 0.069, likey demand ischemia in setting of CHF. Echo showed EF 20-25% with grade 2 diastolic dysfunction, down from 30% in 2020. ? Cardiology consulted, appreciate recs ? Bumex 1 mg IV daily ? Strict I/O, fluid restriction (1.5 L daily), daily weights ? Keep Mg > 2, K > 4 ? Start dapagliflozin 10mg q24h ? Transfer to [place] with accepting physician Dr. Moise Hou for further workup regarding CHF exacerbation vs transplant rejection -Sugar checks s/p solumedrol, T2DM management #Community-acquired pneumonia 3 day history of cough with yellow sputum production. On immunosuppressive medications s/p transplant, thus low threshold for pneumonia suspicion despite afebrile and VSS. ? Levoquine 750 mg q24 (01/08-01/15, on day 1) ? Follow-up blood cultures #Chronic kidney disease #Acute on chronic kidney injury Baseline creatinine and GFR appear to have significant fluctuations but PCP held lasix in light of worsening renal function. Given that patient is on nephrotoxic drugs in conjunction with HENRRY, will consult nephrology. ? Nephrology consulted, appreciate recommendations ? Renal dose medications ? When possible, avoid nephrotoxic agents ? 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 Moise Hou at [facility] and patient unclear of exact reason why but suspect to be due to severe CAD at that time. 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 ? Resume home immunosuppression medication regimen ? Tacrolimus 1.0 mg BID + Tacrolimus 0.5 mg BID (confirmed by patient) ? Sirolimus 0.5 mg BID ? Prednisone 5 mg daily #Type 2 diabetes mellitus, insulin-dependent On insulin lispro at home, not taking glargine A1c 10% ? SSI ? Hypoglycemic protocol in place ? Degludec increased from 5 to 10 units ? Lispro with meals increased from 10 to 12 units #Hyperlipidemia ? Resumed home rosuvastatin 5 mg daily ? Follow-up lipid panel Hospital management: Disposition: pending transfer, diuresis, steroids, glucose checks Diet: low sodium Lines: PIV DVT prophylaxis: lovenox GI prophylaxis: pantoprazole 40 mg daily Zelaya: not indicated CODE STATUS: full code Plan discussed with attending physician Dr. Nazanin Thompson and senior resident Dr. Randy Allen MD, PGY1 Attending Provider Attestation/Addendum I, Nazanin Thompson, DO, attest that I was physically present for the price portions of the service and evaluated the patient with the resident and I reviewed and discussed the case with the resident and agree with the resident's findings and plans of care as documented above Patient seen and evaluated this AM. He states he is feeling well. Patient currently has 1+ pitting edema in b/l LE. Pending transfer to [facility]. Will continue with IV diuresis and prednisone. Started on degludec for better BG control.
[2025-01-12] VITALS (9 sets, daily range): BP systolic 100–120; BP diastolic 68–88; PULSE 75–84; RESP 11–22; TEMP 36–36.3; O2SAT 95–99; BMI 32.5
[2025-01-12 01:06] LABS: Anion Gap 11 (7-16); BUN/Creatinine Ratio 31 Ratio (12-20); Blood Urea Nitrogen 61 mg/dL (9-23); Calcium 9.3 mg/dL (8.3-10.6); Carbon Dioxide 29.5 mMol/L (20.0-31.0); Chloride 100 mMol/L (98-107); Creatinine (Component) 2.0 mg/dL (0.6-1.3); Estimated Creatinine Clearance 40.4 mL/min (>60); Glucose 134 mg/dL (74-106); Osmolality,Calculated 298 (275-295); Potassium 3.8 mMol/L (3.4-5.1); Sodium 140 mMol/L (136-145); eGFR 36 See Note
[2025-01-12 05:56] LABS: Basophils # (Auto) 0.0 Thou/mm3 (0.0-0.2); Basophils % (Auto) 0 % (0-2.5); Eosinophils # (Auto) 0.1 Thou/mm3 (0.0-0.5); Eosinophils % (Auto) 1 % (0-10); Hematocrit 39.1 % (41.0-53.0); Hemoglobin 12.0 g/dL (13.5-16.0); Immature Granulocytes Auto 0.05 Thou/mm3 (0.00-0.00); Lymphocytes # (Auto) 0.7 Thou/mm3 (1.0-4.8); Lymphocytes % (Auto) 12 % (10-50); Mean Corpuscular HGB Conc 30.7 g/dl (31.0-37.0); Mean Corpuscular Hemoglobin 25.6 pg (25.0-35.0); Mean Corpuscular Volume 83 fL (80-100); Monocytes # (Auto) 0.7 Thou/mm3 (0.0-0.8); Monocytes % (Auto) 12 % (0-12); Neutrophils # (Auto) 4.4 Thou/mm3 (1.8-7.7); Neutrophils % (Auto) 73 % (37-80); Nucleated Red Blood Cell # 0.00 Thou/mm3 (0.00-0.00); Nucleated Red Blood Cell % 0 /100 WBC (0); Platelet Count 210 Thou/mm3 (140-440); RDW Standard Deviation 52.3 fL (35.1-43.9); Red Blood Count 4.69 Miln/mm3 (4.50-5.90); White Blood Count 6.0 Thou/mm3 (3.8-10.6)
[2025-01-12 06:45] LABS: Alanine Aminotransferase 21 U/L (10-49); Albumin, Serum 4.0 gm/dL (3.4-4.8); Albumin/Globulin Ratio 1.3 (1.2-2.2); Alkaline Phosphatase 116 U/L (46-116); Anion Gap 11 (7-16); Aspartate Amino Transferase 22 U/L (0-34); BUN/Creatinine Ratio 31 Ratio (12-20); Bilirubin,Total 0.5 mg/dL (0.3-1.2); Blood Urea Nitrogen 61 mg/dL (9-23); Calcium 9.4 mg/dL (8.3-10.6); Calcium (Corrected) 9.4 mg/dL (8.5-10.1); Carbon Dioxide 27.6 mMol/L (20.0-31.0); Chloride 101 mMol/L (98-107); Creatinine (Component) 2.0 mg/dL (0.6-1.3); Estimated Creatinine Clearance 40.4 mL/min (>60); Globulin 3.0 gm/dL (2.3-3.5); Glucose 176 mg/dL (74-106); Magnesium 2.2 mg/dL (1.6-2.6); Osmolality,Calculated 300 (275-295); Phosphorous 5.5 mg/dL (2.4-5.1); Potassium 4.1 mMol/L (3.4-5.1); Sodium 140 mMol/L (136-145); Total Protein 7.0 gm/dL (5.7-8.2); eGFR 36 See Note
[2025-01-12] MEDS: INSULIN LISPRO (AdmeLOG) 1 UNIT/0.01 ML UNIT 10 UNIT SC ×3 (07:32→16:55)
[2025-01-12] MEDS: ENOXAPARIN SOD INJ 40 MG/0.4 ML SYRINGE SC (08:28)
[2025-01-12] MEDS: ATORVASTATIN CALCIUM 20 MG TABLET PO (08:28)
[2025-01-12] MEDS: DAPAGLIFLOZIN PROPANEDIOL 5 MG TABLET 10 MG PO (08:28)
[2025-01-12] MEDS: INSULIN DEGLUDEC 5 UNIT/0.05 ML (PER 5 UNITS) 10 UNIT SC (08:29)
[2025-01-12] MEDS: METOPROLOL SUCCINATE XL 25 MG TABCR PO (08:29)
[2025-01-12] MEDS: TACROLIMUS 0.5 MG CAPSULE PO ×2 (08:30→20:37)
[2025-01-12] MEDS: TACROLIMUS 1 MG CAPSULE PO ×2 (08:30→20:37)
[2025-01-12] MEDS: PANTOPRAZOLE 40 MG TABLET PO (08:30)
--- NOTE | 2025-01-12 09:23 | PC.CM ---
0900 I spoke to [facility] to follow up on transfer. Patient has been accepted to [facility] medically but we are still pending financial clearance.
--- NOTE | 2025-01-12 09:56 | PD.NEPHPROG ---
Documentation for date of: 01/12/25 Subjective Subjective Interval history: 69-year-old male with a past medical history of heart transplant (at [facility] [address] Moise Hou, on immunosuppression), CHF (followed by Dr. Newton outpatient), T2DM, HLD, and GERD who comes in after PCP sent him to [facility] due to concerns for unresolving pneumonia as seen on imaging obtained outpatient. He endorses associated worsening bilateral lower extremity edema and orthopnea approximately over the last few days to week. Per patient, he is on lasix at home but due to worsening renal function it was held. Denies shortness of breath, chest pain/tightness, palpitations. Denies any recent sick contacts but endorses mild coughing of yellow sputum for the last few days. Of note, states that there are months when he does not need to take lasix as he does not have edema and dry weight is presumed to be approximately 195-200 lbs but is currently around 210 lbs. His heart transplant was done approximately 8 years ago at [facility] for presumed significant coronary artery disease and after presenting at that time he received a heart transplant one month later. He has been following Dr. Moise Hou but has been unable to see him due to insurance issues for the last 1.5 years. 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 Additionally, a visit on 09/2024 for chest pain and heaviness prompted a cardiac catheterization which yielded mildly reduced left and systolic dysfunction; EF ~45%. LAD midsegment 40% lesion but otherwise normal appearance in other coronary arteries. No stenting was done and patient was opted for medical management. 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 Nephrology consulted for HENRRY on CKD 3a. 01/08/25: Patient seen and examined at bedside. No complaints this morning, denies shortness of breath or chest pain. Reports that he has not followed up with his transplant specialist at [facility] for almost 2 years due to insurance issues. Also reports that he had symptoms of organ rejection 2 years ago. On exam patient had 3+ pitting edema extending up to his knees bilaterally. Creatinine 1.6 which appears within his baseline (1.2-1.8 since 2019). GFR 43 on admission, improved to 47 after Bumex 1 mg x2. BNP 1119 (baseline 100-300). Continue Bumex as renal function appears to be stable. 01/09/25: Patient seen and examined at bedside. Partner at bedside. Denies shortness of breath and lower extremity edema improved. Cr 1.7 which is still within his baseline. GFR 43. Continue Bumex, may transition to PO Bumex 1 mg on discharge. Attempting transfer to [facility] per primary team for post transplant follow up. 01/10/25: Patient seen and assessed at bedside with partner present. Able to ambulate around room without dyspnea. Lower extremity edema persistent but improved. Creatinine increased to 2.2, hold Bumex today. Encouraged more ambulation, elevation of lower extremities, and compression stockings. Attempting transfer to [facility]. 01/11/25: Patient seen and assessed, sitting up in chair with partner present in room. Ambulating well without dyspnea. Lower extremity edema stable since yesterday. UOP 550 cc overnight but patient and partner endorse more unrecorded output. Strict INOs. Creatinine improved to 2.0. HbA1c 10.0, on Farxiga 10mg daily. Will start Januvia 50 mg daily in light of worsening renal function (GFR 36), avoid metformin, sulfonylureas, and SGLT2. Discussed with primary team, will restart Bumex 0.5 mg daily or 1 mg every other day. Pending insurance authorization for [facility] transfer. 01/12/2025 patient currently seen in telemetry. Ambulating. Madeline at bedside. On Jardiance, Januvia, low-dose Bumex. Labs/medications reviewed. Creatinine 2.0. Review of Systems Review of Systems Narrative Review of Systems: CONSTITUTIONAL: Patient denies any fever, chills. HEENT: Denies any visual disturbances or hearing problems. CARDIOVASCULAR: Patient denies any chest pain, shortness of breath. c/o swelling in the lower extremities. PULMONARY: Patient denies any shortness of breath, cough. GASTROINTESTINAL: Patient denies any abdominal pain, constipation, nausea, vomiting, diarrhea. GENITOURINARY: Patient denies any urinary symptoms of burning or frequency or hematuria, denies any form in the urine. SKIN: Denies any rash. MUSCULOSKELETAL: Denies any muscular skeletal problems of joint pains. NEUROLOGICAL: Denies any neurological problems of strokes, seizures or confusion. Denies any memory problems. PSYCHIATRIC: Denies any depression or anxiety. LYMPHATICS : No lymphadenopathy Exam Vital Signs Temp Pulse Resp BP Pulse Ox O2 Del Method 36.3 C 81 18 102/68 99 Room Air 01/12/25 08:00 01/12/25 08:29 01/12/25 08:00 01/12/25 08:29 01/12/25 08:00 01/12/25 08:00 Narrative Exam GENERAL APPEARANCE: Patient seems to be comfortable, adequately hydrated and nourished. HEENT: EOMI, PERRLA NECK: Neck supple, no JVD or bruit CARDIOVASCULAR: Heart regular, no murmurs LUNGS/CHEST: Chest clear to auscultation. No rales, rhonchi, wheezing ABDOMEN: Soft, nontender, nondistended. No masses. Normal bowel sounds. EXTREMITIES: 2+ edema in the lower extremities SKIN: Skin exam normal without any rashes MUSCULOSKELETAL: Musculoskeletal exam normal PSYCHIATRIC: Normal mood, affect LYMPHATICS: No lymphadenopathy noted NEUROLOGICAL : No neurological deficits Objective Labs 01/12/25 05:33 01/12/25 05:33 Labs: Laboratory Results - last 24 hr 01/12/25 01/12/25 00:31 05:33 WBC 6.0 RBC 4.69 Hgb 12.0 L Hct 39.1 L MCV 83 MCH 25.6 MCHC 30.7 L RDW Std Deviation 52.3 H Plt Count 210 Neut % (Auto) 73 Lymph % (Auto) 12 [place] % (Auto) 12 Eos % (Auto) 1 Baso % (Auto) 0 Neut # (Auto) 4.4 Lymph # (Auto) 0.7 L [place] # (Auto) 0.7 Eos # (Auto) 0.1 Baso # (Auto) 0.0 Immature Gran # (Auto) 0.05 H Absolute Nucleated RBC 0.00 Immature Gran % 1 H Nucleated RBC % 0 Sodium 140 140 Potassium 3.8 D 4.1 Chloride 100 101 Carbon Dioxide 29.5 27.6 Anion Gap 11 11 BUN 61 H 61 H Creatinine 2.0 H 2.0 H Estim Creat Clear Calc 40.4 L 40.4 L eGFR 36 L 36 L BUN/Creatinine Ratio 31 H 31 H Glucose 134 H D 176 H Calculated Osmolality 298 H 300 H Calcium 9.3 9.4 Corrected Calcium 9.4 Phosphorus 5.5 H Magnesium 2.2 Total Bilirubin 0.5 AST 22 ALT 21 Alkaline Phosphatase 116 Total Protein 7.0 Albumin 4.0 Globulin 3.0 Albumin/Globulin Ratio 1.3 Assessment & Plan Assessment and plan (1) CHF (congestive heart failure): Status: Acute (2) History of heart transplant: Status: Acute Additional Assessment & Plan Additional Plan: Patient is a 69 year old male with past medical history of heart transplant (at [facility] [address] 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 Nephrology consulted for HENRRY on CKD 3a. #HENRRY on CKD 3a #Lower extremity edema #Hx heart transplant 03/10 dilated cardiomyopathy - Patient reports that he has been taking Lasix 40 daily for the past month for worsening lower extremity edema but was discontinued 10 days ago by PCP due to mild HENRRY. Only takes Lasix intermittently based on weight and swelling. - Patient also has history of heart transplant at [facility] in 2017 as a result of worsening dilated cardiomyopathy. Reports symptoms of organ rejection about 2 years ago and has not been able to follow up with his transplant specialist for at least 1.5 years. On low dose tacrolimus, sirolimus, and prednisone. - Appears hypervolemic on exam with 3+ pitting edema in lower extremities. - Cr 1.6 on admission which appears to be his baseline (1.2-1.8 since 2019). - GFR 43 -> 47 -> 36 (baseline 51 to greater than 60). - BNP 1119 (baseline 100-300s). 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 Plan: - Can resume Bumex 0.5 mg daily for persistent lower extremity edema as creatinine stable - Continue Farxiga 10 mg daily and started Januvia 50 mg daily for diabetes control iso HENRRY on CKD - Fluid restriction 1500 mL - Strict INOs - Avoid nephrotoxic agents - Continue to monitor renal function - Given lack of follow up with transplant specialist and history of organ rejection in the past, there is also concern for cardiac allograft vasculopathy (CAV) from chronic heart transplant rejection. Discussed with patient importance of urgent follow up with [facility] transplant specialist to rule out CAV after insurance approval. Per primary team, pending transfer to [facility]. #Acute decompensated heart failure exacerbation #Congestive heart failure #NSTEMI type II, demand ischemia #Sinus tachycardia #Community-acquired pneumonia #History of heart transplant #Type 2 diabetes mellitus, insulin-dependent #Hyperlipidemia - Defer management to primary team (1) CHF (congestive heart failure) Qualifiers: Heart failure chronicity: unspecified Heart failure type: unspecified Qualified Code(s): I50.9 - Heart failure, unspecified
--- NOTE | 2025-01-12 11:41 | ESPR_ITS ---
<Statement entered by Bakari Huff MD - 01/12/25 13:29> No acute overnight events. Seen and examined at bedside and resting comfortably in bed. Denies any shortness of breath or chest pain. Vital signs stable, as he is on room air and afebrile. On exam, continues to have bilateral lower extremity edema though appears to be slightly improving. Renal function stable after continuing bumex but at lower dose of 0.5 mg daily. Glucose on higher side but had gotten high dose of steroids and continues to be on degludec 10 units and lispro 12 units with meals in addition to sliding scale. Will continue diuresing and continue with GDMT. Otherwise, continues to pend insurance authorization for transfer to [facility]. ----- Note reviewed and agree with care plan as documented. Please refer to the note below for further details. Plan discussed with attending physician Dr. Jay Huff MD PGY-2 Internal Medicine Documentation for date of: 01/12/25 Subjective Subjective Interval history: Per Case Management Mr. Foss has been accepted to [facility] but is still pending authorization. He is continuing to improve and still endorses no shortness of breath, no orthopnea. Was able to sleep well overnight. Ambulation, passing urine and stool have not been an issue. Labs remain stable and VSS. Will continue to reevaluate insurance authorization. Exam Vital Signs Temp Pulse Resp BP Pulse Ox O2 Del Method 97.4 F 81 18 102/68 99 Room Air 01/12/25 08:00 01/12/25 08:29 01/12/25 08:00 01/12/25 08:29 01/12/25 08:00 01/12/25 08:00 Narrative Exam General: alert and oriented to self/place/year, no acute distress, able to speak full sentences; cheerful on examination without any acute concerns. HEENT: NC/AT, mucous membranes moist, bilateral sclera anicteric Cardiovascular: regular rate and rhythm, S1/S2 present, no murmurs appreciated Pulmonary: clear to auscultation bilaterally, no rales/rhonchi/wheezes Abdominal: soft, nontender, present bowel sounds Musculoskeletal: +1 pitting peripheral edema on BLLE Skin: Warm, well-perfused Objective Labs 01/12/25 05:33 01/12/25 05:33 Labs: Laboratory Results - last 24 hr 01/12/25 01/12/25 00:31 05:33 WBC 6.0 RBC 4.69 Hgb 12.0 L Hct 39.1 L MCV 83 MCH 25.6 MCHC 30.7 L RDW Std Deviation 52.3 H Plt Count 210 Neut % (Auto) 73 Lymph % (Auto) 12 [place] % (Auto) 12 Eos % (Auto) 1 Baso % (Auto) 0 Neut # (Auto) 4.4 Lymph # (Auto) 0.7 L [place] # (Auto) 0.7 Eos # (Auto) 0.1 Baso # (Auto) 0.0 Immature Gran # (Auto) 0.05 H Absolute Nucleated RBC 0.00 Immature Gran % 1 H Nucleated RBC % 0 Sodium 140 140 Potassium 3.8 D 4.1 Chloride 100 101 Carbon Dioxide 29.5 27.6 Anion Gap 11 11 BUN 61 H 61 H Creatinine 2.0 H 2.0 H Estim Creat Clear Calc 40.4 L 40.4 L eGFR 36 L 36 L BUN/Creatinine Ratio 31 H 31 H Glucose 134 H D 176 H Calculated Osmolality 298 H 300 H Calcium 9.3 9.4 Corrected Calcium 9.4 Phosphorus 5.5 H Magnesium 2.2 Total Bilirubin 0.5 AST 22 ALT 21 Alkaline Phosphatase 116 Total Protein 7.0 Albumin 4.0 Globulin 3.0 Albumin/Globulin Ratio 1.3 Quality Measures Quality Measures VTE prophylaxis Advance care planning discussed with:: patient and significant other Assessment & Plan Assessment Current Active Medications: Generic Name Dose Route Start Last Admin Trade Name Freq PRN Reason Stop Dose Admin Acetaminophen 650 mg 01/07/25 14:46 01/07/25 21:04 Acetaminophen 325 Mg Tablet PO 02/06/25 14:45 650 mg Q6H PRN Administration PAIN (1-3) OR FEVER > 100.4 Atorvastatin Calcium 20 mg 01/08/25 09:00 01/12/25 08:28 Atorvastatin Calcium 20 Mg Tablet PO 02/07/25 08:59 20 mg DAILY JACKIE Administration Protocol Bumetanide 0.5 mg 01/12/25 15:00 Bumetanide 0.5 Mg Tablet PO 02/11/25 14:59 QDAY JACKIE Sirolimus 0.5 Mg 0 ea 01/08/25 09:00 01/12/25 08:40 Tablet PO 02/06/25 20:59 2 tablet QDAY JACKIE Administration Dapagliflozin 10 mg 01/08/25 14:15 01/12/25 08:28 Dapagliflozin Propanediol 5 Mg Tablet PO 02/07/25 14:14 10 mg DAILY JACKIE Administration Dextrose 25 ml 01/07/25 15:28 Dextrose 50%-Water Inj 50 Ml Syringe IV 02/06/25 15:27 Q15MIN PRN BG 50-70 responsive npo pt Dextrose 50 ml 01/07/25 15:28 Dextrose 50%-Water Inj 50 Ml Syringe IV 02/06/25 15:27 Q15MIN PRN BG <50 OR BG <70 & pt unresponsive Docusate Sodium 100 mg 01/09/25 17:25 01/11/25 09:23 Docusate Sod 100 Mg Capsule PO 02/08/25 17:24 100 mg BID PRN Administration CONSTIPATION Protocol Enoxaparin Sodium 40 mg 01/08/25 09:00 01/12/25 08:28 Enoxaparin Sod Inj 40 Mg/0.4 Ml Syringe SC 01/22/25 08:59 40 mg QDAY JACKIE Administration Glucagon 1 mg 01/07/25 15:28 Glucagon Inj 1 Mg Vial IM Q15MIN PRN BG <70, and no IV access Insulin Degludec 10 unit 01/10/25 09:00 01/12/25 08:29 Insulin Degludec 5 Unit/0.05 Ml (Per 5 Units) SC 02/09/25 08:59 10 unit QDAY JACKIE Administration Insulin Human Lispro 0 unit 01/09/25 07:30 01/12/25 07:29 Insulin Lispro (Admelog) 1 Unit/0.01 Ml Unit SC 02/08/25 07:29 Not Given [facility] Protocol Insulin Human Lispro 10 unit 01/11/25 11:30 01/12/25 07:32 Insulin Lispro (Admelog) 1 Unit/0.01 Ml Unit SC 02/10/25 11:29 10 unit AC [facility] Administration Metoprolol Succinate 25 mg 01/09/25 09:00 01/12/25 08:29 Metoprolol Succinate Xl 25 Mg Tabcr PO 02/08/25 08:59 25 mg QDAY JACKIE Administration Ondansetron HCl 4 mg 01/07/25 14:52 Ondansetron Inj 2 Mg/Ml Inj 2 Ml IVP 02/06/25 14:51 Q6H PRN NAUSEA OR VOMITING Protocol Pantoprazole Sodium 40 mg 01/08/25 09:00 01/12/25 08:30 Pantoprazole 40 Mg Tablet PO 02/07/25 08:59 40 mg QDAY JACKIE Administration Pharmacy Consult 1 each 01/07/25 15:05 Pharmacy Renal Dose Adjustment 1 Ea XX 02/06/25 15:04 PRN PRN CONSULT Prednisone 5 mg 01/08/25 09:00 01/12/25 08:30 Prednisone 5 Mg Tablet PO 02/07/25 08:59 5 mg QDAY JACKIE Administration Sitagliptin Phosphate 50 mg 01/11/25 11:15 01/12/25 08:30 Sitagliptin Phosphate 50 Mg Tablet PO 02/10/25 11:14 50 mg QDAY JACKIE Administration Tacrolimus 1 mg 01/07/25 21:00 01/12/25 08:30 Tacrolimus 1 Mg Capsule PO 02/06/25 20:59 1 mg Q12H JACKIE Administration Tacrolimus 0.5 mg 01/07/25 21:30 01/12/25 08:30 Tacrolimus 0.5 Mg Capsule PO 02/06/25 21:29 0.5 mg Q12H JACKIE Administration Plan 69 year old male with past medical history of heart transplant (at [facility] [address] 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 #Acute decompensated heart failure exacerbation #Congestive heart failure #NSTEMI type II, demand ischemia #Sinus tachycardia #? Transplant rejection History of heart transplant on immunosuppression since 2017. Has noted increasing bilateral lower extremity edema for 3 days prior to ad mission. Endorsed associated PND and orthopnea but no chest pain. Initial BNP 1119 and troponins peakeda to 0.069, likey demand ischemia in setting of CHF. Echo showed EF 20-25% with grade 2 diastolic dysfunction, down from 30% in 2020. ? Cardiology consulted, appreciate recs ? Bumex 1 mg IV daily ? Strict I/O, fluid restriction (1.5 L daily), daily weights ? Keep Mg > 2, K > 4 ? Start dapagliflozin 10mg q24h ? Transfer to [facility] with accepting physician Dr. Moise Hou for further workup regarding CHF exacerbation vs transplant rejection -Sugar checks, T2DM management #Chronic kidney disease #Acute on chronic kidney injury Baseline creatinine and GFR appear to have significant fluctuations but PCP held lasix in light of worsening renal function. Given that patient is on nephrotoxic drugs in conjunction with HENRRY, will consult nephrology. ? Nephrology consulted, appreciate recommendations ? Renal dose medications ? When possible, avoid nephrotoxic agents ? Consulted pharmacy regarding Levoquine dosing, 750mg q 24 okay given creatinine clearance rate - Per nephrology: Bumex 0.5mg q24h -Continue fluid restriction 1500ml/day limit 01/[address] 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 Moise Hou at [facility] and patient unclear of exact reason why but suspect to be due to severe CAD at that time. 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 ? Resume home immunosuppression medication regimen ? Tacrolimus 1.0 mg BID + Tacrolimus 0.5 mg BID (confirmed by patient) ? Sirolimus 0.5 mg BID ? Prednisone 5 mg daily #Type 2 diabetes mellitus, insulin-dependent On insulin lispro at home, not taking glargine A1c 10% ? SSI ? Hypoglycemic protocol in place ? Degludec 10 units ? Lispro with meals 10 units #Hyperlipidemia ? Resumed home rosuvastatin 5 mg daily #Community-acquired pneumonia - resolved 3 day history of cough with yellow sputum production prior to admission. On immunosuppressive medications s/p transplant, thus low threshold for pneumonia suspicion despite afebrile and VSS. ? Levoquine 750 mg q24 (01/08-01/15) originally started but discontinued for patient's symptomatic improvement on diuresis and lack of persisting respiratory symptoms ? Follow-up blood cultures Hospital management: Disposition: pending transfer, diuresis, steroids, glucose checks Diet: low sodium Lines: PIV DVT prophylaxis: lovenox GI prophylaxis: pantoprazole 40 mg daily Zelaya: not indicated CODE STATUS: full code Patient seen and discussed with attending physician Dr. Nazanin Thompson and senior resident Dr. Bakari Allen MD, PGY-1 Attending Provider Attestation/Addendum INazanin, DO, attest that I was physically present for the price portions of the service and evaluated the patient with the resident and I reviewed and discussed the case with the resident and agree with the resident's findings and plans of care as documented above Patient seen and evaluated this AM. Partner at bedside. Patient continues to have trace b/l pitting edema in b/l LE. He has no acute complaints at this time. Started on bumex 0.5mg PO daily as recommended by nephrology. Pending transfer to [facility].
[2025-01-12] MEDS: INSULIN LISPRO (AdmeLOG) 1 UNIT/0.01 ML UNIT SC (11:55)
[2025-01-12] MEDS: BUMETANIDE 0.5 MG TABLET PO (15:55)
[2025-01-13] VITALS (7 sets, daily range): BP systolic 106–129; BP diastolic 68–92; PULSE 76–87; RESP 15–19; TEMP 36.1–36.8; O2SAT 95–99; BMI 32.6
[2025-01-13 06:30] LABS: Basophils # (Auto) 0.0 Thou/mm3 (0.0-0.2); Basophils % (Auto) 0 % (0-2.5); Eosinophils # (Auto) 0.1 Thou/mm3 (0.0-0.5); Eosinophils % (Auto) 2 % (0-10); Hematocrit 40.8 % (41.0-53.0); Hemoglobin 12.8 g/dL (13.5-16.0); Immature Granulocytes Auto 0.07 Thou/mm3 (0.00-0.00); Lymphocytes # (Auto) 0.7 Thou/mm3 (1.0-4.8); Lymphocytes % (Auto) 12 % (10-50); Mean Corpuscular HGB Conc 31.4 g/dl (31.0-37.0); Mean Corpuscular Hemoglobin 26.3 pg (25.0-35.0); Mean Corpuscular Volume 84 fL (80-100); Monocytes # (Auto) 0.7 Thou/mm3 (0.0-0.8); Monocytes % (Auto) 12 % (0-12); Neutrophils # (Auto) 4.1 Thou/mm3 (1.8-7.7); Neutrophils % (Auto) 72 % (37-80); Nucleated Red Blood Cell # 0.00 Thou/mm3 (0.00-0.00); Nucleated Red Blood Cell % 0 /100 WBC (0); Platelet Count 200 Thou/mm3 (140-440); RDW Standard Deviation 52.7 fL (35.1-43.9); Red Blood Count 4.86 Miln/mm3 (4.50-5.90); White Blood Count 5.7 Thou/mm3 (3.8-10.6)
[2025-01-13 06:47] LABS: Alanine Aminotransferase 27 U/L (10-49); Albumin, Serum 4.0 gm/dL (3.4-4.8); Albumin/Globulin Ratio 1.3 (1.2-2.2); Alkaline Phosphatase 126 U/L (46-116); Anion Gap 10 (7-16); Aspartate Amino Transferase 29 U/L (0-34); BUN/Creatinine Ratio 33 Ratio (12-20); Bilirubin,Total 0.5 mg/dL (0.3-1.2); Blood Urea Nitrogen 63 mg/dL (9-23); Calcium 9.2 mg/dL (8.3-10.6); Calcium (Corrected) 9.2 mg/dL (8.5-10.1); Carbon Dioxide 30.0 mMol/L (20.0-31.0); Chloride 103 mMol/L (98-107); Creatinine (Component) 1.9 mg/dL (0.6-1.3); Estimated Creatinine Clearance 42.6 mL/min (>60); Globulin 3.1 gm/dL (2.3-3.5); Glucose 169 mg/dL (74-106); Magnesium 1.8 mg/dL (1.6-2.6); Osmolality,Calculated 306 (275-295); Phosphorous 4.3 mg/dL (2.4-5.1); Potassium 4.3 mMol/L (3.4-5.1); Sodium 143 mMol/L (136-145); Total Protein 7.1 gm/dL (5.7-8.2); eGFR 38 See Note
[2025-01-13] MEDS: INSULIN LISPRO (AdmeLOG) 1 UNIT/0.01 ML UNIT 10 UNIT SC ×3 (07:23→16:56)
[2025-01-13] MEDS: TACROLIMUS 0.5 MG CAPSULE PO ×2 (08:31→20:37)
[2025-01-13] MEDS: DAPAGLIFLOZIN PROPANEDIOL 5 MG TABLET 10 MG PO (08:31)
[2025-01-13] MEDS: TACROLIMUS 1 MG CAPSULE PO ×2 (08:31→20:37)
[2025-01-13] MEDS: ATORVASTATIN CALCIUM 20 MG TABLET PO (08:32)
[2025-01-13] MEDS: BUMETANIDE 0.5 MG TABLET PO (08:32)
[2025-01-13] MEDS: PANTOPRAZOLE 40 MG TABLET PO (08:32)
[2025-01-13] MEDS: METOPROLOL SUCCINATE XL 25 MG TABCR PO (08:32)
[2025-01-13] MEDS: ENOXAPARIN SOD INJ 40 MG/0.4 ML SYRINGE SC (08:34)
[2025-01-13] MEDS: INSULIN DEGLUDEC 5 UNIT/0.05 ML (PER 5 UNITS) 10 UNIT SC (08:34)
--- NOTE | 2025-01-13 09:05 | ESPR_ITS ---
Documentation for date of: 01/13/25 Subjective Subjective Interval history: Interval history: 69-year-old male with a past medical history of heart transplant (at [facility] [address] Moise Hou, on immunosuppression), CHF (followed by Dr. Newton outpatient), T2DM, HLD, and GERD who comes in after PCP sent him to [facility] due to concerns for unresolving pneumonia as seen on imaging obtained outpatient. He endorses associated worsening bilateral lower extremity edema and orthopnea approximately over the last few days to week. Per patient, he is on lasix at home but due to worsening renal function it was held. Denies shortness of breath, chest pain/tightness, palpitations. Denies any recent sick contacts but endorses mild coughing of yellow sputum for the last few days. Of note, states that there are months when he does not need to take lasix as he does not have edema and dry weight is presumed to be approximately 195-200 lbs but is currently around 210 lbs. His heart transplant was done approximately 8 years ago at [facility] for presumed significant coronary artery disease and after presenting at that time he received a heart transplant one month later. He has been following Dr. Moise Hou but has been unable to see him due to insurance issues for the last 1.5 years. 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 Additionally, a visit on 09/2024 for chest pain and heaviness prompted a cardiac catheterization which yielded mildly reduced left and systolic dysfunction; EF ~45%. LAD midsegment 40% lesion but otherwise normal appearance in other coronary arteries. No stenting was done and patient was opted for medical management. 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 Nephrology consulted for HENRRY on CKD 3a. 01/08/25: Patient seen and examined at bedside. No complaints this morning, denies shortness of breath or chest pain. Reports that he has not followed up with his transplant specialist at [facility] for almost 2 years due to insurance issues. Also reports that he had symptoms of organ rejection 2 years ago. On exam patient had 3+ pitting edema extending up to his knees bilaterally. Creatinine 1.6 which appears within his baseline (1.2-1.8 since 2019). GFR 43 on admission, improved to 47 after Bumex 1 mg x2. BNP 1119 (baseline 100-300). Continue Bumex as renal function appears to be stable. 01/09/25: Patient seen and examined at bedside. Partner at bedside. Denies shortness of breath and lower extremity edema improved. Cr 1.7 which is still within his baseline. GFR 43. Continue Bumex, may transition to PO Bumex 1 mg on discharge. Attempting transfer to [facility] per primary team for post transplant follow up. 01/10/25: Patient seen and assessed at bedside with partner present. Able to ambulate around room without dyspnea. Lower extremity edema persistent but improved. Creatinine increased to 2.2, hold Bumex today. Encouraged more ambulation, elevation of lower extremities, and compression stockings. Attempting transfer to [facility]. 01/11/25: Patient seen and assessed, sitting up in chair with partner present in room. Ambulating well without dyspnea. Lower extremity edema stable since yesterday. UOP 550 cc overnight but patient and partner endorse more unrecorded output. Strict INOs. Creatinine improved to 2.0. HbA1c 10.0, on Farxiga 10mg daily. Will start Januvia 50 mg daily in light of worsening renal function (GFR 36), avoid metformin, sulfonylureas, and SGLT2. Discussed with primary team, will restart Bumex 0.5 mg daily or 1 mg every other day. Pending insurance authorization for [facility] transfer. 01/12/2025 patient currently seen in telemetry. Ambulating. Madeline at bedside. On Jardiance, Januvia, low-dose Bumex. Labs/medications reviewed. Creatinine 2.0. 01/13/25: Patient seen and assessed, sitting up in chair. UOP 2.5L. Creatinine 1.9, improving. Continue Jardiance, Januvia, and Bumex 0.5 daily. May discharge on Bumex 1 mg PO. Still pending [facility] transfer. Exam Vital Signs Temp Pulse Resp BP Pulse Ox O2 Del Method 96.9 F 86 15 127/92 H 99 Room Air 01/13/25 08:00 01/13/25 08:32 01/13/25 08:00 01/13/25 08:32 01/13/25 08:00 01/13/25 08:00 Narrative Exam Physical Exam General: Awake and in no acute distress. Conversational and non-toxic appearing. HEENT: Normocephalic, atraumatic, mucous membranes moist. Heart: Regular rate and rhythm, normal S1 and S2, no murmurs appreciated. S urgical scars on chest and base of neck. Lungs: Clear to auscultation bilaterally. Abdomen: Soft, nondistended, nontender, positive bowel sounds. No guarding or rebound tenderness. Neurologic: Alert and oriented x3, no gross neurological deficit, and patient able to move all 4 extremities. Extremities: 2+ pitting edema bilaterally extending up to knees. Skin: No rash or ecchymoses. Objective Labs 01/14/25 04:50 01/14/25 04:50 Labs: Laboratory Results - last 24 hr 01/13/25 05:30 WBC 5.7 RBC 4.86 Hgb 12.8 L Hct 40.8 L MCV 84 MCH 26.3 MCHC 31.4 RDW Std Deviation 52.7 H Plt Count 200 Neut % (Auto) 72 Lymph % (Auto) 12 [place] % (Auto) 12 Eos % (Auto) 2 Baso % (Auto) 0 Neut # (Auto) 4.1 Lymph # (Auto) 0.7 L [place] # (Auto) 0.7 Eos # (Auto) 0.1 Baso # (Auto) 0.0 Immature Gran # (Auto) 0.07 H Absolute Nucleated RBC 0.00 Immature Gran % 1 H Nucleated RBC % 0 Sodium 143 Potassium 4.3 Chloride 103 Carbon Dioxide 30.0 Anion Gap 10 BUN 63 H Creatinine 1.9 H Estim Creat Clear Calc 42.6 L eGFR 38 L BUN/Creatinine Ratio 33 H Glucose 169 H Calculated Osmolality 306 H Calcium 9.2 Corrected Calcium 9.2 Phosphorus 4.3 Magnesium 1.8 Total Bilirubin 0.5 AST 29 ALT 27 Alkaline Phosphatase 126 H Total Protein 7.1 Albumin 4.0 Globulin 3.1 Albumin/Globulin Ratio 1.3 Quality Measures Quality Measures VTE prophylaxis Advance care planning discussed with:: patient Assessment & Plan Assessment Current Active Medications: Generic Name Dose Route Start Last Admin Trade Name Freq PRN Reason Stop Dose Admin Acetaminophen 650 mg 01/07/25 14:46 01/07/25 21:04 Acetaminophen 325 Mg Tablet PO 02/06/25 14:45 650 mg Q6H PRN Administration PAIN (1-3) OR FEVER > 100.4 Atorvastatin Calcium 20 mg 01/08/25 09:00 01/13/25 08:32 Atorvastatin Calcium 20 Mg Tablet PO 02/07/25 08:59 20 mg DAILY JACKIE Administration Protocol Bumetanide 0.5 mg 01/12/25 15:00 01/13/25 08:32 Bumetanide 0.5 Mg Tablet PO 02/11/25 14:59 0.5 mg QDAY JACKIE Administration Sirolimus 0.5 Mg 0 ea 01/08/25 09:00 01/13/25 08:34 Tablet PO 02/06/25 20:59 2 tablet QDAY JACKIE Administration Dapagliflozin 10 mg 01/08/25 14:15 01/13/25 08:31 Dapagliflozin Propanediol 5 Mg Tablet PO 02/07/25 14:14 10 mg DAILY JACKIE Administration Dextrose 25 ml 01/07/25 15:28 Dextrose 50%-Water Inj 50 Ml Syringe IV 02/06/25 15:27 Q15MIN PRN BG 50-70 responsive npo pt Dextrose 50 ml 01/07/25 15:28 Dextrose 50%-Water Inj 50 Ml Syringe IV 02/06/25 15:27 Q15MIN PRN BG <50 OR BG <70 & pt unresponsive Docusate Sodium 100 mg 01/09/25 17:25 01/11/25 09:23 Docusate Sod 100 Mg Capsule PO 02/08/25 17:24 100 mg BID PRN Administration CONSTIPATION Protocol Enoxaparin Sodium 40 mg 01/08/25 09:00 01/13/25 08:34 Enoxaparin Sod Inj 40 Mg/0.4 Ml Syringe SC 01/22/25 08:59 40 mg QDAY JACKIE Administration Glucagon 1 mg 01/07/25 15:28 Glucagon Inj 1 Mg Vial IM Q15MIN PRN BG <70, and no IV access Insulin Degludec 10 unit 01/10/25 09:00 01/13/25 08:34 Insulin Degludec 5 Unit/0.05 Ml (Per 5 Units) SC 02/09/25 08:59 10 unit QDAY JACKIE Administration Insulin Human Lispro 0 unit 01/09/25 07:30 01/13/25 07:24 Insulin Lispro (Admelog) 1 Unit/0.01 Ml Unit SC 02/08/25 07:29 Not Given AC [facility] Protocol Insulin Human Lispro 10 unit 01/11/25 11:30 01/13/25 07:23 Insulin Lispro (Admelog) 1 Unit/0.01 Ml Unit SC 02/10/25 11:29 10 unit AC JACKIE Administration Metoprolol Succinate 25 mg 01/09/25 09:00 01/13/25 08:32 Metoprolol Succinate Xl 25 Mg Tabcr PO 02/08/25 08:59 25 mg QDAY JACKIE Administration Ondansetron HCl 4 mg 01/07/25 14:52 Ondansetron Inj 2 Mg/Ml Inj 2 Ml IVP 02/06/25 14:51 Q6H PRN NAUSEA OR VOMITING Protocol Pantoprazole Sodium 40 mg 01/08/25 09:00 01/13/25 08:32 Pantoprazole 40 Mg Tablet PO 02/07/25 08:59 40 mg QDAY JACKIE Administration Pharmacy Consult 1 each 01/07/25 15:05 Pharmacy Renal Dose Adjustment 1 Ea XX 02/06/25 15:04 PRN PRN CONSULT Prednisone 5 mg 01/08/25 09:00 01/13/25 08:33 Prednisone 5 Mg Tablet PO 02/07/25 08:59 5 mg QDAY JACKIE Administration Sitagliptin Phosphate 50 mg 01/11/25 11:15 01/13/25 08:41 Sitagliptin Phosphate 50 Mg Tablet PO 02/10/25 11:14 50 mg QDAY JACKIE Administration Tacrolimus 1 mg 01/07/25 21:00 01/13/25 08:31 Tacrolimus 1 Mg Capsule PO 02/06/25 20:59 1 mg Q12H JACKIE Administration Tacrolimus 0.5 mg 01/07/25 21:30 01/13/25 08:31 Tacrolimus 0.5 Mg Capsule PO 02/06/25 21:29 0.5 mg Q12H JACKIE Administration Plan Patient is a 69 year old male with past medical history of heart transplant (at [facility] [address] 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 Nephrology consulted for HENRRY on CKD 3a. #HENRRY on CKD 3a #Lower extremity edema #Hx heart transplant 03/10 dilated cardiomyopathy - Patient reports that he has been taking Lasix 40 daily for the past month for worsening lower extremity edema but was discontinued 10 days ago by PCP due to mild HENRRY. Only takes Lasix intermittently based on weight and swelling. - Patient also has history of heart transplant at [facility] in 2017 as a result of worsening dilated cardiomyopathy. Reports symptoms of organ rejection about 2 years ago and has not been able to follow up with his transplant specialist for at least 1.5 years. On low dose tacrolimus, sirolimus, and prednisone. - Appears hypervolemic on exam with 3+ pitting edema in lower extremities. - Cr 1.6 on admission which appears to be his baseline (1.2-1.8 since 2019). - GFR 43 -> 47 -> 36 (baseline 51 to greater than 60). - BNP 1119 (baseline 100-300s). 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 Plan: - Bumex 0.5 mg daily - Farxiga 10 mg daily for diabetes iso CKD - Januvia 50 mg daily for diabetes control iso HENRRY on CKD - Fluid restriction 1500 mL - Strict INOs - Avoid nephrotoxic agents - Continue to monitor renal function - Given lack of follow up with transplant specialist and history of organ rejection in the past, there is also concern for cardiac allograft vasculopathy (CAV) from chronic heart transplant rejection. Discussed with patient importance of urgent follow up with [facility] transplant specialist to rule out CAV after insurance approval. Per primary team, pending transfer to [facility]. #Acute decompensated heart failure exacerbation #Congestive heart failure #NSTEMI type II, demand ischemia #Sinus tachycardia #Community-acquired pneumonia #History of heart transplant #Type 2 diabetes mellitus, insulin-dependent #Hyperlipidemia - Defer management to primary team Thank you for your consultation, please do not hesitate to reach out if you have any question or concern Patient plan of care was discussed with the attending physician, Dr. Ronquillo. Martha Fisher DO, PGY-1 Attending Provider Attestation/Addendum Patient currently seen and examined with resident physician Dr. Fisher. Note reviewed, agree with findings and recommendations. Patient currently seen in telemetry. Madeline, my patient at bedside. Patient has significant edema-not quite sure if he has congestive heart failure versus related to chronic allograft rejection. Last seen in the heart transplant center 2 years ago. Recommended to go and see them after discharge. Today patient seems to be feeling much more comfortable. Edema and shortness of breath improved at the expense of renal insufficiency. Patient on low-dose of diuretic.. Patient will be left with some kidney impairment to maintain euvolemic state. Care discussed with primary team. Noted plans for transfer to [facility] heart transplant service is pending. However I do not see any need for emergency transfer. Can follow-up as an outpatient if unable to transfer patient. Renal scott stable for discharge. Monitor renal function closely.
--- NOTE | 2025-01-13 09:26 | ESPR_ITS ---
<Statement entered by Bakari Huff MD - 01/13/25 15:14> No acute overnight events. Seen and examined at bedside and denies any shortness of breath or chest tightness. He continues to have good urine output on bumex 0.5 mg and renal function has remained stable. Vital signs stable as he is on room air and afebrile. On exam, continues to have bilateral lower extremity edema that also appear to be improving. At this time transfer is in process and awaiting word from [facility] financial department. Otherwise, will continue with current management. ----- Note reviewed and agree with care plan as documented. Please refer to the note below for further details. Plan discussed with attending physician Dr. Jay Huff MD PGY-2 Internal Medicine Documentation for date of: 01/13/25 Subjective Subjective Interval history: NAEO VSS. Continue to wait for insurance authorization and [facility] transfer. Mr. Foss has no orthopnea nor shorntess of breath at rest. His pedal edema has improved on the bumex 0.5mg daily, to continue regimen per nephrology Dr. Ronquillo. Exam Vital Signs Temp Pulse Resp BP Pulse Ox O2 Del Method 96.9 F 86 15 127/92 H 99 Room Air 01/13/25 08:00 01/13/25 08:32 01/13/25 08:00 01/13/25 08:32 01/13/25 08:00 01/13/25 08:00 Narrative Exam General: alert and oriented to self/place/year, no acute distress, able to speak full sentences HEENT: NC/AT, mucous membranes moist, bilateral sclera anicteric Cardiovascular: regular rate and rhythm, S1/S2 present, no murmurs appreciated Pulmonary: clear to auscultation bilaterally, no rales/rhonchi/wheezes Abdominal: soft, nontender, present bowel sounds Musculoskeletal: minimal to no lower extremity edema Skin: Warm, well-perfused Objective Labs 01/14/25 04:50 01/14/25 04:50 Labs: Laboratory Results - last 24 hr 01/13/25 05:30 WBC 5.7 RBC 4.86 Hgb 12.8 L Hct 40.8 L MCV 84 MCH 26.3 MCHC 31.4 RDW Std Deviation 52.7 H Plt Count 200 Neut % (Auto) 72 Lymph % (Auto) 12 [place] % (Auto) 12 Eos % (Auto) 2 Baso % (Auto) 0 Neut # (Auto) 4.1 Lymph # (Auto) 0.7 L [place] # (Auto) 0.7 Eos # (Auto) 0.1 Baso # (Auto) 0.0 Immature Gran # (Auto) 0.07 H Absolute Nucleated RBC 0.00 Immature Gran % 1 H Nucleated RBC % 0 Sodium 143 Potassium 4.3 Chloride 103 Carbon Dioxide 30.0 Anion Gap 10 BUN 63 H Creatinine 1.9 H Estim Creat Clear Calc 42.6 L eGFR 38 L BUN/Creatinine Ratio 33 H Glucose 169 H Calculated Osmolality 306 H Calcium 9.2 Corrected Calcium 9.2 Phosphorus 4.3 Magnesium 1.8 Total Bilirubin 0.5 AST 29 ALT 27 Alkaline Phosphatase 126 H Total Protein 7.1 Albumin 4.0 Globulin 3.1 Albumin/Globulin Ratio 1.3 Quality Measures Quality Measures VTE prophylaxis Advance care planning discussed with:: patient Assessment & Plan Assessment Current Active Medications: Generic Name Dose Route Start Last Admin Trade Name Freq PRN Reason Stop Dose Admin Acetaminophen 650 mg 01/07/25 14:46 01/07/25 21:04 Acetaminophen 325 Mg Tablet PO 02/06/25 14:45 650 mg Q6H PRN Administration PAIN (1-3) OR FEVER > 100.4 Atorvastatin Calcium 20 mg 01/08/25 09:00 01/13/25 08:32 Atorvastatin Calcium 20 Mg Tablet PO 02/07/25 08:59 20 mg DAILY JACKIE Administration Protocol Bumetanide 0.5 mg 01/12/25 15:00 01/13/25 08:32 Bumetanide 0.5 Mg Tablet PO 02/11/25 14:59 0.5 mg QDAY JACKIE Administration Sirolimus 0.5 Mg 0 ea 01/08/25 09:00 01/13/25 08:34 Tablet PO 02/06/25 20:59 2 tablet QDAY JACKIE Administration Dapagliflozin 10 mg 01/08/25 14:15 01/13/25 08:31 Dapagliflozin Propanediol 5 Mg Tablet PO 02/07/25 14:14 10 mg DAILY JACKIE Administration Dextrose 25 ml 01/07/25 15:28 Dextrose 50%-Water Inj 50 Ml Syringe IV 02/06/25 15:27 Q15MIN PRN BG 50-70 responsive npo pt Dextrose 50 ml 01/07/25 15:28 Dextrose 50%-Water Inj 50 Ml Syringe IV 02/06/25 15:27 Q15MIN PRN BG <50 OR BG <70 & pt unresponsive Docusate Sodium 100 mg 01/09/25 17:25 01/11/25 09:23 Docusate Sod 100 Mg Capsule PO 02/08/25 17:24 100 mg BID PRN Administration CONSTIPATION Protocol Enoxaparin Sodium 40 mg 01/08/25 09:00 01/13/25 08:34 Enoxaparin Sod Inj 40 Mg/0.4 Ml Syringe SC 01/22/25 08:59 40 mg QDAY JACKIE Administration Glucagon 1 mg 01/07/25 15:28 Glucagon Inj 1 Mg Vial IM Q15MIN PRN BG <70, and no IV access Insulin Degludec 10 unit 01/10/25 09:00 01/13/25 08:34 Insulin Degludec 5 Unit/0.05 Ml (Per 5 Units) SC 02/09/25 08:59 10 unit QDAY JACKIE Administration Insulin Human Lispro 0 unit 01/09/25 07:30 01/13/25 07:24 Insulin Lispro (Admelog) 1 Unit/0.01 Ml Unit SC 02/08/25 07:29 Not Given AC [facility] Protocol Insulin Human Lispro 10 unit 01/11/25 11:30 01/13/25 07:23 Insulin Lispro (Admelog) 1 Unit/0.01 Ml Unit SC 02/10/25 11:29 10 unit AC JACKIE Administration Metoprolol Succinate 25 mg 01/09/25 09:00 01/13/25 08:32 Metoprolol Succinate Xl 25 Mg Tabcr PO 02/08/25 08:59 25 mg QDAY JACKIE Administration Ondansetron HCl 4 mg 01/07/25 14:52 Ondansetron Inj 2 Mg/Ml Inj 2 Ml IVP 02/06/25 14:51 Q6H PRN NAUSEA OR VOMITING Protocol Pantoprazole Sodium 40 mg 01/08/25 09:00 01/13/25 08:32 Pantoprazole 40 Mg Tablet PO 02/07/25 08:59 40 mg QDAY JACKIE Administration Pharmacy Consult 1 each 01/07/25 15:05 Pharmacy Renal Dose Adjustment 1 Ea XX 02/06/25 15:04 PRN PRN CONSULT Prednisone 5 mg 01/08/25 09:00 01/13/25 08:33 Prednisone 5 Mg Tablet PO 02/07/25 08:59 5 mg QDAY JACKIE Administration Sitagliptin Phosphate 50 mg 01/11/25 11:15 01/13/25 08:41 Sitagliptin Phosphate 50 Mg Tablet PO 02/10/25 11:14 50 mg QDAY JACKIE Administration Tacrolimus 1 mg 01/07/25 21:00 01/13/25 08:31 Tacrolimus 1 Mg Capsule PO 02/06/25 20:59 1 mg Q12H JACKIE Administration Tacrolimus 0.5 mg 01/07/25 21:30 01/13/25 08:31 Tacrolimus 0.5 Mg Capsule PO 02/06/25 21:29 0.5 mg Q12H JACKIE Administration Plan 69 year old male with past medical history of heart transplant (at [facility] [address] 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 Pending transfer to [facility] for further workup and management. #Acute decompensated heart failure exacerbation #Congestive heart failure #NSTEMI type II, demand ischemia #Sinus tachycardia #? Transplant rejection History of heart transplant on immunosuppression since 2017. Has noted increasing bilateral lower extremity edema for 3 days prior to ad mission. Endorsed associated PND and orthopnea but no chest pain. Initial BNP 1119 and troponins peakeda to 0.069, likey demand ischemia in setting of CHF. Echo showed EF 20-25% with grade 2 diastolic dysfunction, down from 30% in 2020. ? Cardiology consulted, appreciate recs ? Bumex 1 mg IV daily ? Strict I/O, fluid restriction (1.5 L daily), daily weights ? Keep Mg > 2, K > 4 ? Start dapagliflozin 10mg q24h ? Transfer to [facility] with accepting physician Dr. Moise Hou for further workup regarding CHF exacerbation vs transplant rejection -Sugar checks, T2DM management #Chronic kidney disease #Acute on chronic kidney injury Baseline creatinine and GFR appear to have significant fluctuations but PCP held lasix in light of worsening renal function. Given that patient is on nephrotoxic drugs in conjunction with HNERRY, will consult nephrology. ? Nephrology consulted, appreciate recommendations ? Renal dose medications ? When possible, avoid nephrotoxic agents ? Consulted pharmacy regarding Levoquine dosing, 750mg q 24 okay given creatinine clearance rate - Per nephrology: Bumex 0.5mg q24h to continue -Continue fluid restriction 1500ml/day limit 01/13no updates from Dr. 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 Moise Hou at [facility] and patient unclear of exact reason why but suspect to be due to severe CAD at that time. 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 ? Resume home immunosuppression medication regimen ? Tacrolimus 1.0 mg BID + Tacrolimus 0.5 mg BID (confirmed by patient) ? Sirolimus 0.5 mg BID ? Prednisone 5 mg daily #Type 2 diabetes mellitus, insulin-dependent On insulin lispro at home, not taking glargine A1c 10% ? SSI ? Hypoglycemic protocol in place ? Degludec 10 units ? Lispro with meals 10 units #Hyperlipidemia ? Resumed home rosuvastatin 5 mg daily #Community-acquired pneumonia - resolved 3 day history of cough with yellow sputum production prior to admission. On immunosuppressive medications s/p transplant, thus low threshold for pneumonia suspicion despite afebrile and VSS. ? Levoquine 750 mg q24 (01/08-01/15) originally started but discontinued for patient's symptomatic improvement on diuresis and lack of persisting respiratory symptoms ? Follow-up blood cultures Hospital management: Disposition: pending transfer, diuresis, steroids, glucose checks Diet: low sodium Lines: PIV DVT prophylaxis: lovenox GI prophylaxis: pantoprazole 40 mg daily Zelaya: not indicated CODE STATUS: full code Patient seen and discussed with attending physician Dr. Nazanin Thompson and senior resident Dr. Bakari Allen MD PGY-1 Attending Provider Attestation/Addendum I, Nazanin Thompson, DO, attest that I was physically present for the price portions of the service and evaluated the patient with the resident and I reviewed and discussed the case with the resident and agree with the resident's findings and plans of care as documented above Patient seen and evaluated this AM. Patient states he is feeling well. No acute events overnight. B/l pitting edema appears much improved. Pending [facility] transfer.
[2025-01-13] MEDS: INSULIN LISPRO (AdmeLOG) 1 UNIT/0.01 ML UNIT SC ×2 (11:17→16:56)
--- NOTE | 2025-01-13 11:18 | PC.CC ---
Addendum entered by Alireza Funez RN 01/13/25 18:43: 1541: called [facility] finance dept, informed CARMEN still has not been processed. I will f/u tomorrow morning Addendum entered by Alireza Funez RN 01/13/25 11:28: 1125: called [facility] finance dept, spoke to Carolyne. She stated CARMEN sill has not been processed. She stated to check later this afternoon. Original Note: [id number]: received call from Jammie / [facility] for status update. Informed her that we are waiting for the CARMEN to be cleared by their zack department. no other update provided to me. 0823: Called Sunil / [facility] to f/u on CARMEN status. No answer and unable to leave a message.
[2025-01-13] MEDS: Magnesium Sulfate 2 GM Ivpb 2 GM/50 ML BAG IV (11:22)
[2025-01-13] MEDS: MAGNESIUM OXIDE 400 MG TABLET 1200 MG PO (11:47)
--- NOTE | 2025-01-13 14:54 | PD.RESDS ---
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 Moise Hou Pt w/ PMH heart transplant previously managed by Dr. Moise Hou presents for CHF exacerbation, concerns for Heart Failure vs rejection. Attending Provider on DC: Omid Allen MD Discharging Provider: Omid Allen MD Hospital Course Hospital Course Hospital course: Interval history: 69-year-old male with a past medical history of heart transplant (at [facility] [address] Moise Hou, on immunosuppression), CHF (followed by Dr. Newton outpatient), T2DM, HLD, and GERD who comes in after PCP sent him to [facility] due to concerns for unresolving pneumonia as seen on imaging obtained outpatient. He endorses associated worsening bilateral lower extremity edema and orthopnea approximately over the last few days to week. Per patient, he is on lasix at home but due to worsening renal function it was held. Denies shortness of breath, chest pain/tightness, palpitations. Denies any recent sick contacts but endorses mild coughing of yellow sputum for the last few days. Of note, states that there are months when he does not need to take lasix as he does not have edema and dry weight is presumed to be approximately 195-200 lbs but is currently around 210 lbs. His heart transplant was done approximately 8 years ago at [facility] for presumed significant coronary artery disease and after presenting at that time he received a heart transplant one month later. He has been following Dr. Moise Hou but has been unable to see him due to insurance issues for the last 1.5 years. 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 Additionally, a visit on 09/2024 for chest pain and heaviness prompted a cardiac catheterization which yielded mildly reduced left and systolic dysfunction; EF ~45%. LAD midsegment 40% lesion but otherwise normal appearance in other coronary arteries. No stenting was done and patient was opted for medical management. 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 Nephrology consulted for HENRRY on CKD 3a. 01/08/25: Patient seen and examined at bedside. No complaints this morning, denies shortness of breath or chest pain. Reports that he has not followed up with his transplant specialist at [facility] for almost 2 years due to insurance issues. Also reports that he had symptoms of organ rejection 2 years ago. On exam patient had 3+ pitting edema extending up to his knees bilaterally. Creatinine 1.6 which appears within his baseline (1.2-1.8 since 2019). GFR 43 on admission, improved to 47 after Bumex 1 mg x2. BNP 1119 (baseline 100-300). Continue Bumex as renal function appears to be stable. 01/09/25: Patient seen and examined at bedside. Partner at bedside. Denies shortness of breath and lower extremity edema improved. Cr 1.7 which is still within his baseline. GFR 43. Continue Bumex, may transition to PO Bumex 1 mg on discharge. Attempting transfer to [facility] per primary team for post transplant follow up. 01/10/25: Patient seen and assessed at bedside with partner present. Able to ambulate around room without dyspnea. Lower extremity edema persistent but improved. Creatinine increased to 2.2, hold Bumex today. Encouraged more ambulation, elevation of lower extremities, and compression stockings. Attempting transfer to [facility]. 01/11/25: Patient seen and assessed, sitting up in chair with partner present in room. Ambulating well without dyspnea. Lower extremity edema stable since yesterday. UOP 550 cc overnight but patient and partner endorse more unrecorded output. Strict INOs. Creatinine improved to 2.0. HbA1c 10.0, on Farxiga 10mg daily. Will start Januvia 50 mg daily in light of worsening renal function (GFR 36), avoid metformin, sulfonylureas, and SGLT2. Discussed with primary team, will restart Bumex 0.5 mg daily or 1 mg every other day. Pending insurance authorization for [facility] transfer. 01/12/2025 patient currently seen in telemetry. Ambulating. Madeline at bedside. On Jardiance, Januvia, low-dose Bumex. Labs/medications reviewed. Creatinine 2.0. 01/13/25: Patient seen and assessed, sitting up in chair. UOP 2.5L. Creatinine 1.9, improving. Continue Jardiance, Januvia, and Bumex 0.5 daily. May discharge on Bumex 1 mg PO. Still pending [facility] transfer. Time Spent with Patient Time attestation: Total time spent providing and/or coordinating discharge services: Exam Vital Signs Temp Pulse Resp BP Pulse Ox O2 Del Method 97.5 F 78 18 108/77 97 Room Air 01/13/25 12:00 01/13/25 12:00 01/13/25 12:00 01/13/25 12:00 01/13/25 12:00 01/13/25 12:00 Discharge Plan Plan Patient Disposition: Xfer Other Facility Pt Being Transferred to: [facility] Service Needed for Transfer: Cardiology Disposition Comment: Discharge home to follow up with [facility] with Dr. Hou Patient condition on transfer: Stable Prescriptions/Referrals Prescriptions/Med Rec: New dapagliflozin propanediol 10 mg tablet 10 mg PO DAILY 30 Days Qty: 30 0RF Continued prednisolone 5 mg tablet 5 mg PO QDAY omeprazole 20 MG capsule,delayed release(DR/EC) 20 mg PO QDAY Qty: 0 insulin aspart U-100 [Novolog FlexPen U-100 Insulin] 100 unit/mL (3 mL) Insulin Pen 10 unit SUBCUT TID tacrolimus [Prograf] 1 mg Capsule 3 mg PO Q12H sirolimus 0.5 mg tablet 1 mg PO Q12H Patient Comments: TAKE 2 TABLETS BY MOUTH DAILY. rosuvastatin 20 mg tablet 5 mg PO DAILY Patient Comments: TAKE 1 TABLET BY MOUTH EVERYDAY AT BEDTIME tacrolimus 0.5 mg capsule 0.5 mg PO Q12H Patient Comments: TAKE 1 CAPSULE (0.5 MG TOTAL) BY MOUTH TWO (2) TIMES DAILY. tramadol 50 mg tablet 50 mg PO DAILY PRN (Reason: pain) Patient Comments: TAKE 1 TABLET NEEDED ORALLY ONCE A DAY NEEDED amlodipine 5 mg tablet 5 mg PO DAILY Patient Comments: TAKE 1 TABLET BY MOUTH EVERY DAY carvedilol 6.25 mg tablet 6.25 mg PO BID Patient Comments: TAKE 1 TABLET BY MOUTH TWICE A DAY WITH FOOD Discontinued gabapentin 100 mg capsule 50 mg PO DAILY Victoza 2-Jose Guadalupe 0.6 mg/0.1 mL (18 mg/3 mL) pen injector 1.2 mg subcut QDAY insulin glargine [Lantus U-100 Insulin] 100 unit/mL Solution 26 unit SUBCUT QPM No Action amoxicillin-pot clavulanate 875-125 mg tablet 1 tab PO Q12H Patient Comments: TAKE 1 TABLET BY MOUTH EVERY 12 HOURS Referrals: Jordan Vyas MD [Primary Care Provider, Family Practice] Patient/Caregiver Discharge Instructions Discharge Activity: resume usual activities Other Discharge Activity Instructions:: -Medical management per team at [facility], as well as post-visit recommendations regarding activity and disposition Education Materials: Low-Salt Choices, Diabetes: Caring for Your Body, Heart Failure: Evaluating Your Heart Print Language: Bahamian Stand Alone Forms: Martine Award Info., Patient Portal Info Letter
[2025-01-14] VITALS (8 sets, daily range): BP systolic 105–125; BP diastolic 71–85; PULSE 77–83; RESP 15–20; TEMP 36.4–36.8; O2SAT 92–97; BMI 32.3
[2025-01-14 05:44] LABS: Alanine Aminotransferase 26 U/L (10-49); Albumin, Serum 3.9 gm/dL (3.4-4.8); Albumin/Globulin Ratio 1.3 (1.2-2.2); Alkaline Phosphatase 117 U/L (46-116); Anion Gap 11 (7-16); Aspartate Amino Transferase 21 U/L (0-34); BUN/Creatinine Ratio 34 Ratio (12-20); Bilirubin,Total 0.5 mg/dL (0.3-1.2); Blood Urea Nitrogen 57 mg/dL (9-23); Calcium 9.3 mg/dL (8.3-10.6); Calcium (Corrected) 9.4 mg/dL (8.5-10.1); Carbon Dioxide 26.9 mMol/L (20.0-31.0); Chloride 105 mMol/L (98-107); Creatinine (Component) 1.7 mg/dL (0.6-1.3); Estimated Creatinine Clearance 47.4 mL/min (>60); Globulin 3.0 gm/dL (2.3-3.5); Glucose 175 mg/dL (74-106); Magnesium 1.8 mg/dL (1.6-2.6); Osmolality,Calculated 304 (275-295); Phosphorous 3.9 mg/dL (2.4-5.1); Potassium 3.8 mMol/L (3.4-5.1); Sodium 143 mMol/L (136-145); Total Protein 6.9 gm/dL (5.7-8.2); eGFR 43 See Note
[2025-01-14 05:52] LABS: Basophils # (Auto) 0.0 Thou/mm3 (0.0-0.2); Basophils % (Auto) 0 % (0-2.5); Eosinophils # (Auto) 0.1 Thou/mm3 (0.0-0.5); Eosinophils % (Auto) 2 % (0-10); Hematocrit 39.0 % (41.0-53.0); Hemoglobin 12.0 g/dL (13.5-16.0); Immature Granulocytes Auto 0.07 Thou/mm3 (0.00-0.00); Lymphocytes # (Auto) 0.8 Thou/mm3 (1.0-4.8); Lymphocytes % (Auto) 14 % (10-50); Mean Corpuscular HGB Conc 30.8 g/dl (31.0-37.0); Mean Corpuscular Hemoglobin 25.4 pg (25.0-35.0); Mean Corpuscular Volume 83 fL (80-100); Monocytes # (Auto) 0.7 Thou/mm3 (0.0-0.8); Monocytes % (Auto) 13 % (0-12); Neutrophils # (Auto) 3.7 Thou/mm3 (1.8-7.7); Neutrophils % (Auto) 69 % (37-80); Nucleated Red Blood Cell # 0.00 Thou/mm3 (0.00-0.00); Nucleated Red Blood Cell % 0 /100 WBC (0); Platelet Count 207 Thou/mm3 (140-440); RDW Standard Deviation 51.8 fL (35.1-43.9); Red Blood Count 4.72 Miln/mm3 (4.50-5.90); White Blood Count 5.4 Thou/mm3 (3.8-10.6)
[2025-01-14] MEDS: INSULIN LISPRO (AdmeLOG) 1 UNIT/0.01 ML UNIT 10 UNIT SC (07:33)
[2025-01-14] MEDS: DAPAGLIFLOZIN PROPANEDIOL 5 MG TABLET 10 MG PO (08:22)
[2025-01-14] MEDS: ATORVASTATIN CALCIUM 20 MG TABLET PO (08:23)
[2025-01-14] MEDS: TACROLIMUS 1 MG CAPSULE PO ×2 (08:23→20:46)
[2025-01-14] MEDS: TACROLIMUS 0.5 MG CAPSULE PO ×2 (08:23→20:46)
[2025-01-14] MEDS: BUMETANIDE 0.5 MG TABLET PO (08:24)
[2025-01-14] MEDS: PANTOPRAZOLE 40 MG TABLET PO (08:25)
[2025-01-14] MEDS: METOPROLOL SUCCINATE XL 25 MG TABCR PO (08:25)
[2025-01-14] MEDS: INSULIN DEGLUDEC 5 UNIT/0.05 ML (PER 5 UNITS) 15 UNIT SC (08:27)
[2025-01-14] MEDS: ENOXAPARIN SOD INJ 40 MG/0.4 ML SYRINGE SC (08:29)
--- NOTE | 2025-01-14 09:12 | ESPR_ITS ---
Documentation for date of: 01/14/25 Subjective Subjective Interval history: 69-year-old male with a past medical history of heart transplant (at [facility] [address] Moise Hou, on immunosuppression), CHF (followed by Dr. Newton outpatient), T2DM, HLD, and GERD who comes in after PCP sent him to [facility] due to concerns for unresolving pneumonia as seen on imaging obtained outpatient. He endorses associated worsening bilateral lower extremity edema and orthopnea approximately over the last few days to week. Per patient, he is on lasix at home but due to worsening renal function it was held. Denies shortness of breath, chest pain/tightness, palpitations. Denies any recent sick contacts but endorses mild coughing of yellow sputum for the last few days. Of note, states that there are months when he does not need to take lasix as he does not have edema and dry weight is presumed to be approximately 195-200 lbs but is currently around 210 lbs. His heart transplant was done approximately 8 years ago at [facility] for presumed significant coronary artery disease and after presenting at that time he received a heart transplant one month later. He has been following Dr. Moise Hou but has been unable to see him due to insurance issues for the last 1.5 years. 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 Additionally, a visit on 09/2024 for chest pain and heaviness prompted a cardiac catheterization which yielded mildly reduced left and systolic dysfunction; EF ~45%. LAD midsegment 40% lesion but otherwise normal appearance in other coronary arteries. No stenting was done and patient was opted for medical management. 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 Nephrology consulted for HENRRY on CKD 3a. 01/08/25: Patient seen and examined at bedside. No complaints this morning, denies shortness of breath or chest pain. Reports that he has not followed up with his transplant specialist at [facility] for almost 2 years due to insurance issues. Also reports that he had symptoms of organ rejection 2 years ago. On exam patient had 3+ pitting edema extending up to his knees bilaterally. Creatinine 1.6 which appears within his baseline (1.2-1.8 since 2019). GFR 43 on admission, improved to 47 after Bumex 1 mg x2. BNP 1119 (baseline 100-300). Continue Bumex as renal function appears to be stable. 01/09/25: Patient seen and examined at bedside. Partner at bedside. Denies shortness of breath and lower extremity edema improved. Cr 1.7 which is still within his baseline. GFR 43. Continue Bumex, may transition to PO Bumex 1 mg on discharge. Attempting transfer to [facility] per primary team for post transplant follow up. 01/10/25: Patient seen and assessed at bedside with partner present. Able to ambulate around room without dyspnea. Lower extremity edema persistent but improved. Creatinine increased to 2.2, hold Bumex today. Encouraged more ambulation, elevation of lower extremities, and compression stockings. Attempting transfer to [facility]. 01/11/25: Patient seen and assessed, sitting up in chair with partner present in room. Ambulating well without dyspnea. Lower extremity edema stable since yesterday. UOP 550 cc overnight but patient and partner endorse more unrecorded output. Strict INOs. Creatinine improved to 2.0. HbA1c 10.0, on Farxiga 10mg daily. Will start Januvia 50 mg daily in light of worsening renal function (GFR 36), avoid metformin, sulfonylureas, and SGLT2. Discussed with primary team, will restart Bumex 0.5 mg daily or 1 mg every other day. Pending insurance authorization for [facility] transfer. 01/12/2025 patient currently seen in telemetry. Ambulating. Madeline at bedside. On Jardiance, Januvia, low-dose Bumex. Labs/medications reviewed. Creatinine 2.0. 01/13/25: Patient seen and assessed, sitting up in chair. UOP 2.5L. Creatinine 1.9, improving. Continue Jardiance, Januvia, and Bumex 0.5 daily. May discharge on Bumex 1 mg PO. Still pending [facility] transfer. 01/14/25: Patient seen and assessed in telemetry, sitting up in chair. UOP 800 cc overnight. Creatinine 1.7. Still pending [facility] transfer, per primary team will reach out again to transplant specialist. No need for emergency transfer from nephrology standpoint as renal function is recovering, can follow up outpatient if unable to transfer. Med recommendations as above. Instructed patient to follow up in clinic 1 week after discharge. Exam Vital Signs Temp Pulse Resp BP Pulse Ox O2 Del Method 97.8 F 81 16 112/75 92 L Room Air 01/14/25 08:00 01/14/25 08:25 01/14/25 08:00 01/14/25 08:25 01/14/25 08:00 01/14/25 08:00 Narrative Exam Physical Exam General: Awake and in no acute distress. Conversational and non-toxic appearing. HEENT: Normocephalic, atraumatic, mucous membranes moist. Heart: Regular rate and rhythm, normal S1 and S2, no murmurs appreciated. S urgical scars on chest and base of neck. Lungs: Clear to auscultation bilaterally. Abdomen: Soft, nondistended, nontender, positive bowel sounds. No guarding or rebound tenderness. Neurologic: Alert and oriented x3, no gross neurological deficit, and patient able to move all 4 extremities. Extremities: 2+ pitting edema bilaterally extending up to knees. Skin: No rash or ecchymoses. Objective Labs 01/14/25 04:50 01/14/25 04:50 Labs: Laboratory Results - last 24 hr 01/14/25 04:50 WBC 5.4 RBC 4.72 Hgb 12.0 L Hct 39.0 L MCV 83 MCH 25.4 MCHC 30.8 L RDW Std Deviation 51.8 H Plt Count 207 Neut % (Auto) 69 Lymph % (Auto) 14 [place] % (Auto) 13 H Eos % (Auto) 2 Baso % (Auto) 0 Neut # (Auto) 3.7 Lymph # (Auto) 0.8 L [place] # (Auto) 0.7 Eos # (Auto) 0.1 Baso # (Auto) 0.0 Immature Gran # (Auto) 0.07 H Absolute Nucleated RBC 0.00 Immature Gran % 1 H Nucleated RBC % 0 Sodium 143 Potassium 3.8 D Chloride 105 Carbon Dioxide 26.9 Anion Gap 11 BUN 57 H Creatinine 1.7 H Estim Creat Clear Calc 47.4 L eGFR 43 L BUN/Creatinine Ratio 34 H Glucose 175 H Calculated Osmolality 304 H Calcium 9.3 Corrected Calcium 9.4 Phosphorus 3.9 Magnesium 1.8 Total Bilirubin 0.5 AST 21 ALT 26 Alkaline Phosphatase 117 H Total Protein 6.9 Albumin 3.9 Globulin 3.0 Albumin/Globulin Ratio 1.3 Quality Measures Quality Measures VTE prophylaxis Advance care planning discussed with:: patient Assessment & Plan Assessment Current Active Medications: Generic Name Dose Route Start Last Admin Trade Name Freq PRN Reason Stop Dose Admin Acetaminophen 650 mg 01/07/25 14:46 01/07/25 21:04 Acetaminophen 325 Mg Tablet PO 02/06/25 14:45 650 mg Q6H PRN Administration PAIN (1-3) OR FEVER > 100.4 Atorvastatin Calcium 20 mg 01/08/25 09:00 01/14/25 08:23 Atorvastatin Calcium 20 Mg Tablet PO 02/07/25 08:59 20 mg DAILY JACKIE Administration Protocol Bumetanide 0.5 mg 01/12/25 15:00 01/14/25 08:24 Bumetanide 0.5 Mg Tablet PO 02/11/25 14:59 0.5 mg QDAY JACKIE Administration Sirolimus 0.5 Mg 0 ea 01/08/25 09:00 01/14/25 08:26 Tablet PO 02/06/25 20:59 2 tablet QDAY JACKIE Administration Dapagliflozin 10 mg 01/08/25 14:15 01/14/25 08:22 Dapagliflozin Propanediol 5 Mg Tablet PO 02/07/25 14:14 10 mg DAILY JACKIE Administration Dextrose 25 ml 01/07/25 15:28 Dextrose 50%-Water Inj 50 Ml Syringe IV 02/06/25 15:27 Q15MIN PRN BG 50-70 responsive npo pt Dextrose 50 ml 01/07/25 15:28 Dextrose 50%-Water Inj 50 Ml Syringe IV 02/06/25 15:27 Q15MIN PRN BG <50 OR BG <70 & pt unresponsive Docusate Sodium 100 mg 01/09/25 17:25 01/11/25 09:23 Docusate Sod 100 Mg Capsule PO 02/08/25 17:24 100 mg BID PRN Administration CONSTIPATION Protocol Enoxaparin Sodium 40 mg 01/08/25 09:00 01/14/25 08:29 Enoxaparin Sod Inj 40 Mg/0.4 Ml Syringe SC 01/22/25 08:59 40 mg QDAY JACKIE Administration Glucagon 1 mg 01/07/25 15:28 Glucagon Inj 1 Mg Vial IM Q15MIN PRN BG <70, and no IV access Potassium Phosphate 15 mmol in 250 mls @ 62.5 mls/hr 01/14/25 07:59 Pot Phos 15 Mmol In Ns 250 Ml IV 01/14/25 11:58 X1 ONE Insulin Degludec 15 unit 01/14/25 09:00 01/14/25 08:27 Insulin Degludec 5 Unit/0.05 Ml (Per 5 Units) SC 02/13/25 08:59 15 unit QDAY JACKIE Administration Insulin Human Lispro 0 unit 01/09/25 07:30 01/14/25 07:32 Insulin Lispro (Admelog) 1 Unit/0.01 Ml Unit SC 02/08/25 07:29 Not Given [facility] Protocol Insulin Human Lispro 12 unit 01/14/25 11:30 Insulin Lispro (Admelog) 1 Unit/0.01 Ml Unit SC 02/13/25 11:29 [facility] Metoprolol Succinate 25 mg 01/09/25 09:00 01/14/25 08:25 Metoprolol Succinate Xl 25 Mg Tabcr PO 02/08/25 08:59 25 mg QDAY JACKIE Administration Ondansetron HCl 4 mg 01/07/25 14:52 Ondansetron Inj 2 Mg/Ml Inj 2 Ml IVP 02/06/25 14:51 Q6H PRN NAUSEA OR VOMITING Protocol Pantoprazole Sodium 40 mg 01/08/25 09:00 01/14/25 08:25 Pantoprazole 40 Mg Tablet PO 02/07/25 08:59 40 mg QDAY JACKIE Administration Pharmacy Consult 1 each 01/07/25 15:05 Pharmacy Renal Dose Adjustment 1 Ea XX 02/06/25 15:04 PRN PRN CONSULT Prednisone 5 mg 01/08/25 09:00 01/14/25 08:23 Prednisone 5 Mg Tablet PO 02/07/25 08:59 5 mg QDAY JACKIE Administration Sitagliptin Phosphate 50 mg 01/11/25 11:15 01/14/25 08:25 Sitagliptin Phosphate 50 Mg Tablet PO 02/10/25 11:14 50 mg QDAY JACKIE Administration Tacrolimus 1 mg 01/07/25 21:00 01/14/25 08:23 Tacrolimus 1 Mg Capsule PO 02/06/25 20:59 1 mg Q12H JACKIE Administration Tacrolimus 0.5 mg 01/07/25 21:30 01/14/25 08:23 Tacrolimus 0.5 Mg Capsule PO 02/06/25 21:29 0.5 mg Q12H JACKIE Administration Plan Patient is a 69 year old male with past medical history of heart transplant (at [facility] [address] 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 Nephrology consulted for HENRRY on CKD 3a. #HENRRY on CKD 3a #Lower extremity edema #Hx heart transplant 03/10 dilated cardiomyopathy - Patient reports that he has been taking Lasix 40 daily for the past month for worsening lower extremity edema but was discontinued 10 days ago by PCP due to mild HENRRY. Only takes Lasix intermittently based on weight and swelling. - Patient also has history of heart transplant at [facility] in 2017 as a result of worsening dilated cardiomyopathy. Reports symptoms of organ rejection about 2 years ago and has not been able to follow up with his transplant specialist for at least 1.5 years. On low dose tacrolimus, sirolimus, and prednisone. - Appears hypervolemic on exam with 3+ pitting edema in lower extremities. - Cr 1.6 on admission which appears to be his baseline (1.2-1.8 since 2019). - GFR 43 -> 47 -> 36 (baseline 51 to greater than 60). - BNP 1119 (baseline 100-300s). 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 Plan: - IV Bumex 0.5 mg daily, transition to Bumex 1 mg PO on discharge. 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 Can follow up outpatient if unable to transfer. Per primary team, still pending insurance auth, will attempt to touch base again with transplant specialist. #Acute decompensated heart failure exacerbation #Congestive heart failure #NSTEMI type II, demand ischemia #Sinus tachycardia #Community-acquired pneumonia #History of heart transplant #Type 2 diabetes mellitus, insulin-dependent #Hyperlipidemia - Defer management to primary team Thank you for your consultation, please do not hesitate to reach out if you have any question or concern Patient plan of care was discussed with the attending physician, Dr. Ronquillo. Martha Fisher DO, PGY-1 Attending Provider Attestation/Addendum Patient currently seen and examined with resident physician Dr. Fisher. Note reviewed, agree with findings and recommendations. Patient currently seen in telemetry. Madeline, my patient at bedside. Patient has significant edema-not quite sure if he has congestive heart failure versus related to chronic allograft rejection. Last seen in the heart transplant center 2 years ago. Recommended to go and see them after discharge. Today patient seems to be feeling much more comfortable. Edema and shortness of breath improved at the expense of renal insufficiency. Patient on low-dose of diuretic.. Patient will be left with some kidney impairment to maintain euvolemic state. Care discussed with primary team. Noted plans for transfer to [facility] heart transplant service is pending. Reviewed primary team is a notes regarding need for cardiac cath/heart biopsy to rule out rejection. Monitor renal function closely.
--- NOTE | 2025-01-14 09:29 | ESPR_ITS ---
<Statement entered by Bakrai Huff MD - 01/14/25 20:23> No acute overnight events. Seen and examined at bedside and denying any shortness of breath or chest pain. Continues to have lower extremity edema but is net negative 2 L since admission. Will continue with current bumex dose of 0.5 mg daily. Touched base with transfer nurse and appears that insurance may deny transfer as patient is on room air and has no shortness of breath. However, patient's android ui developer at [facility], Dr. Moise Hou, would like patient to be transferred for cardiac cath with biopsy to rule out transplant rejection vs coronary artery disease as etiology of patient's presentation. Dr. Hou notified of insurance complications and will follow-up on results. Also touched base with patient's local android ui developer and given that patient is pending transfer is holding off on cardiac cath at this time. ----- Note reviewed and agree with care plan as documented. Please refer to the note below for further details. Plan discussed with attending physician Dr. Frandy Huff MD PGY-2 Internal Medicine Documentation for date of: 01/14/25 Subjective Subjective Interval history: Patient seen in the morning VSS NAEO. Mr. Foss continues to ambulate and use the restroom independently. Unfortunately still waiting for insurance authorization. Edema has slightly increased today, +2 BLLE. Continue to wait for insurance authorization despite agreement between Dr. Moise Hou and our team for continued workup of exacerbation of heart failure vs heart transplant rejection vs other. The need for a transfer to higher level of care include evaluation of therapeutic anti-rejection medication dosing, cardiac catheterization with biopsy(which is not available at [facility]) and continuity of care. Patient has previously been denied outpatient visit for follow up after his heart transplant and it was unbeknownst to him that an appeal process was necessary and would be approved to continue care under Dr. Moise Hou. Has not had consistent cardiac care post-transplant for a few years. Exam Vital Signs Temp Pulse Resp BP Pulse Ox O2 Del Method 97.8 F 81 16 112/75 92 L Room Air 01/14/25 08:00 01/14/25 08:25 01/14/25 08:00 01/14/25 08:25 01/14/25 08:00 01/14/25 08:00 Narrative Exam General: alert and oriented to self/place/year, no acute distress, able to speak full sentences HEENT: NC/AT, mucous membranes moist, bilateral sclera anicteric Cardiovascular: regular rate and rhythm, S1/S2 present, no murmurs appreciated Pulmonary: clear to auscultation bilaterally, no rales/rhonchi/wheezes Abdominal: soft, nontender, present bowel sounds Musculoskeletal: +2 bilateral peripheral pitting edema, worse from yesterday despite consistent therapy Skin: Warm, well-perfused Objective Labs 01/15/25 05:27 01/15/25 05:27 Labs: Laboratory Results - last 24 hr 01/14/25 04:50 WBC 5.4 RBC 4.72 Hgb 12.0 L Hct 39.0 L MCV 83 MCH 25.4 MCHC 30.8 L RDW Std Deviation 51.8 H Plt Count 207 Neut % (Auto) 69 Lymph % (Auto) 14 Bennett % (Auto) 13 H Eos % (Auto) 2 Baso % (Auto) 0 Neut # (Auto) 3.7 Lymph # (Auto) 0.8 L Bennett # (Auto) 0.7 Eos # (Auto) 0.1 Baso # (Auto) 0.0 Immature Gran # (Auto) 0.07 H Absolute Nucleated RBC 0.00 Immature Gran % 1 H Nucleated RBC % 0 Sodium 143 Potassium 3.8 D Chloride 105 Carbon Dioxide 26.9 Anion Gap 11 BUN 57 H Creatinine 1.7 H Estim Creat Clear Calc 47.4 L eGFR 43 L BUN/Creatinine Ratio 34 H Glucose 175 H Calculated Osmolality 304 H Calcium 9.3 Corrected Calcium 9.4 Phosphorus 3.9 Magnesium 1.8 Total Bilirubin 0.5 AST 21 ALT 26 Alkaline Phosphatase 117 H Total Protein 6.9 Albumin 3.9 Globulin 3.0 Albumin/Globulin Ratio 1.3 Quality Measures Quality Measures VTE prophylaxis Advance care planning discussed with:: patient and significant other Assessment & Plan Assessment Current Active Medications: Generic Name Dose Route Start Last Admin Trade Name Freq PRN Reason Stop Dose Admin Acetaminophen 650 mg 01/07/25 14:46 01/07/25 21:04 Acetaminophen 325 Mg Tablet PO 02/06/25 14:45 650 mg Q6H PRN Administration PAIN (1-3) OR FEVER > 100.4 Atorvastatin Calcium 20 mg 01/08/25 09:00 12/09/25 08:23 Atorvastatin Calcium 20 Mg Tablet PO 02/07/25 08:59 20 mg DAILY JACKIE Administration Protocol Bumetanide 0.5 mg 01/12/25 15:00 01/14/25 08:24 Bumetanide 0.5 Mg Tablet PO 02/11/25 14:59 0.5 mg QDAY JACKIE Administration Sirolimus 0.5 Mg 0 ea 01/08/25 09:00 01/14/25 08:26 Tablet PO 02/06/25 20:59 2 tablet QDAY JACKIE Administration Dapagliflozin 10 mg 01/08/25 14:15 01/14/25 08:22 Dapagliflozin Propanediol 5 Mg Tablet PO 02/07/25 14:14 10 mg DAILY JACKIE Administration Dextrose 25 ml 01/07/25 15:28 Dextrose 50%-Water Inj 50 Ml Syringe IV 02/06/25 15:27 Q15MIN PRN BG 50-70 responsive npo pt Dextrose 50 ml 01/07/25 15:28 Dextrose 50%-Water Inj 50 Ml Syringe IV 02/06/25 15:27 Q15MIN PRN BG <50 OR BG <70 & pt unresponsive Docusate Sodium 100 mg 01/09/25 17:25 01/11/25 09:23 Docusate Sod 100 Mg Capsule PO 02/08/25 17:24 100 mg BID PRN Administration CONSTIPATION Protocol Enoxaparin Sodium 40 mg 01/08/25 09:00 01/14/25 08:29 Enoxaparin Sod Inj 40 Mg/0.4 Ml Syringe SC 01/22/25 08:59 40 mg QDAY JACKIE Administration Glucagon 1 mg 01/07/25 15:28 Glucagon Inj 1 Mg Vial IM Q15MIN PRN BG <70, and no IV access Insulin Degludec 15 unit 01/14/25 09:00 01/14/25 08:27 Insulin Degludec 5 Unit/0.05 Ml (Per 5 Units) SC 02/13/25 08:59 15 unit QDAY JACKIE Administration Insulin Human Lispro 0 unit 01/09/25 07:30 01/14/25 07:32 Insulin Lispro (Admelog) 1 Unit/0.01 Ml Unit SC 02/08/25 07:29 Not Given AC JACKIE Protocol Insulin Human Lispro 12 unit 01/14/25 11:30 Insulin Lispro (Admelog) 1 Unit/0.01 Ml Unit SC 02/13/25 11:29 AC JACKIE Metoprolol Succinate 25 mg 01/09/25 09:00 01/14/25 08:25 Metoprolol Succinate Xl 25 Mg Tabcr PO 02/08/25 08:59 25 mg QDAY JACKIE Administration Ondansetron HCl 4 mg 01/07/25 14:52 Ondansetron Inj 2 Mg/Ml Inj 2 Ml IVP 02/06/25 14:51 Q6H PRN NAUSEA OR VOMITING Protocol Pantoprazole Sodium 40 mg 01/08/25 09:00 01/14/25 08:25 Pantoprazole 40 Mg Tablet PO 02/07/25 08:59 40 mg QDAY JACKIE Administration Pharmacy Consult 1 each 01/07/25 15:05 Pharmacy Renal Dose Adjustment 1 Ea XX 02/06/25 15:04 PRN PRN CONSULT Prednisone 5 mg 01/08/25 09:00 01/14/25 08:23 Prednisone 5 Mg Tablet PO 02/07/25 08:59 5 mg QDAY JACKIE Administration Sitagliptin Phosphate 50 mg 01/11/25 11:15 01/14/25 08:25 Sitagliptin Phosphate 50 Mg Tablet PO 02/10/25 11:14 50 mg QDAY JACKIE Administration Tacrolimus 1 mg 01/07/25 21:00 01/14/25 08:23 Tacrolimus 1 Mg Capsule PO 02/06/25 20:59 1 mg Q12H JACKIE Administration Tacrolimus 0.5 mg 01/07/25 21:30 01/14/25 08:23 Tacrolimus 0.5 Mg Capsule PO 02/06/25 21:29 0.5 mg Q12H JACKIE Administration Plan 69 year old male with past medical history of heart transplant (at [facility] [address] 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 Pending transfer to [facility] for further workup and management. #Acute decompensated heart failure exacerbation #Congestive heart failure #NSTEMI type II, demand ischemia #Sinus tachycardia #Transplant rejection History of heart transplant on immunosuppression since 2017 with insurance issues and lack of follow up since then. Has noted increasing bilateral lower extremity edema for 3 days prior to admission. Endorsed associated PND and orthopnea but no chest pain. Initial BNP 1119 and troponins peaked to 0.069, likely demand ischemia in setting of CHF. Echo showed EF 20-25% with grade 2 diastolic dysfunction, down from 30% in 2020. Worsened ejection fraction notes a continued worry for transplant rejection, for which definitive diagnosis necessitates monitoring of anti-rejection medication levels(tacrolimus, sirolimus) and a cardiac, coronary artery biopsy, for which the facilities at [facility] are not made available. Dr. Moise Hou and Transplant Center have agreed to accept the patient since last week, 01/10/2025. Pending insurance authorization and to sign letter of acceptance. ? Cardiology consulted, appreciate recs ? Bumex 0.5 mg daily ? Strict I/O, fluid restriction (1.5 L daily), daily weights ? Keep Mg > 2, K > 4 ? dapagliflozin 10mg q24h ? Transfer to [facility] with accepting physician Dr. Moise Hou for further workup regarding CHF exacerbation vs transplant rejection #Chronic kidney disease #Acute on chronic kidney injury Baseline creatinine and GFR appear to have significant fluctuations but PCP held lasix in light of worsening renal function. Given that patient is on nephrotoxic drugs in conjunction with HENRRY, will consult nephrology. ? Nephrology consulted, appreciate recommendations ? Renal dose medications ? When possible, avoid nephrotoxic agents ? Consulted pharmacy regarding Levoquine dosing, 750mg q 24 okay given creatinine clearance rate - Per nephrology: Bumex 0.5mg q24h to continue -Continue fluid restriction 1500ml/day limit 01/13no updates from Dr. 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 Moise Hou at [facility] and patient unclear of exact reason why but suspect to be due to severe CAD at that time. Follows Dr. Newton as general android ui developer outpatient. ? Resume home immunosuppression medication regimen ? Tacrolimus 1.0 mg BID + Tacrolimus 0.5 mg BID (confirmed by patient) ? Sirolimus 0.5 mg BID ? Prednisone 5 mg daily #Type 2 diabetes mellitus, insulin-dependent On insulin lispro at home, not taking glargine A1c 10% ? SSI ? Hypoglycemic protocol in place ? Degludec 10 units ? Lispro with meals 10 units #Hyperlipidemia ? Resumed home rosuvastatin 5 mg daily #Community-acquired pneumonia - resolved 3 day history of cough with yellow sputum production prior to admission. On immunosuppressive medications s/p transplant, thus low threshold for pneumonia suspicion despite afebrile and VSS. ? Levoquine 750 mg q24 (01/08-01/15) originally started but discontinued for patient's symptomatic improvement on diuresis and lack of persisting respiratory symptoms Cultures [facility] Hospital management: Disposition: pending transfer, diuresis, steroids, glucose checks Diet: low sodium Lines: PIV DVT prophylaxis: lovenox GI prophylaxis: pantoprazole 40 mg daily Zelaya: not indicated CODE STATUS: full code Patient seen and discussed with Dr. Kun Wise and senior resident Dr. Bakari Huff Attending Provider Attestation/Addendum I have examined the patient, reviewed labs and imaging findings, discussed the case with the resident(s), and reviewed entered orders. I agree with the plan of care as outlined in this note, with these additional summaries/recommendations: Patient seen at bedside. No acute overnight events. Patient currently denies shortness of breath. Patient admitted for acute CHF exacerbation. He is net negative approximately 2 L for hospitalization. We will continue diuresis and uptitrate goal-directed medical therapy as tolerated. Initial BNP on admission 1119. Patient has history of heart transplant at [facility]. Continue tacrolimus, sirolimus, and prednisone. Patient was also found to have HENRRY on CKD which continues to improve daily. Urine output appropriate. Creatinine down to 1.7. Continue insulin sliding scale for diabetes mellitus type 2 with basal bolus insulin. Target blood sugar 140-180 while hospitalized. Continue statin therapy. No need for antibiotics at this time. Patient updated on the plan and in agreement. All questions answered to satisfaction. Please see residents note for additional details and management. Dr. Frandy MD
[2025-01-14] MEDS: MAGNESIUM OXIDE 400 MG TABLET PO (09:48)
[2025-01-14] MEDS: INSULIN LISPRO (AdmeLOG) 1 UNIT/0.01 ML UNIT 12 UNIT SC (11:34)
--- NOTE | 2025-01-14 12:23 | PC.CC ---
Addendum entered by Alireza Funez RN 01/14/25 15:37: 1400: During rounds, i relayed the message to the team of insurance questioning the medical necessity of the transfer as pt has stabilized. Dr. Coello stated Dr. Hou at [facility] is stating the patient needs a bx and cath to r/o heart transplant rejection. I encouraged him to document the medical necessity for the transfer. 1304: spoke to Janie LARSEN at [facility] to f/u on status of CARMEN, she informed me that the signed CARMEN was returned to [facility] this morning. Janie questioned the need for transfer as the patient has stabilized and can be followed as outpatient. I informed i would discuss with the team during rounding. Original Note: 0911: called [facility] finance dept to f/u on CARMEN status, per Mirian zack dept is waiting for signed CARMEN back from insurance company. I will call later this afternoon for any updates.
[2025-01-14] MEDS: INSULIN LISPRO (AdmeLOG) 1 UNIT/0.01 ML UNIT SC (21:47)
[2025-01-15] VITALS (8 sets, daily range): BP systolic 100–133; BP diastolic 65–86; PULSE 78–98; RESP 12–20; TEMP 36.2–36.8; O2SAT 95–98; BMI 32.6
[2025-01-15 06:37] LABS: Basophils # (Auto) 0.0 Thou/mm3 (0.0-0.2); Basophils % (Auto) 0 % (0-2.5); Eosinophils # (Auto) 0.1 Thou/mm3 (0.0-0.5); Eosinophils % (Auto) 2 % (0-10); Hematocrit 39.4 % (41.0-53.0); Hemoglobin 12.2 g/dL (13.5-16.0); Immature Granulocytes Auto 0.06 Thou/mm3 (0.00-0.00); Lymphocytes # (Auto) 0.8 Thou/mm3 (1.0-4.8); Lymphocytes % (Auto) 14 % (10-50); Mean Corpuscular HGB Conc 31.0 g/dl (31.0-37.0); Mean Corpuscular Hemoglobin 26.0 pg (25.0-35.0); Mean Corpuscular Volume 84 fL (80-100); Monocytes # (Auto) 0.7 Thou/mm3 (0.0-0.8); Monocytes % (Auto) 14 % (0-12); Neutrophils # (Auto) 3.6 Thou/mm3 (1.8-7.7); Neutrophils % (Auto) 68 % (37-80); Nucleated Red Blood Cell # 0.00 Thou/mm3 (0.00-0.00); Nucleated Red Blood Cell % 0 /100 WBC (0); Platelet Count 201 Thou/mm3 (140-440); RDW Standard Deviation 52.1 fL (35.1-43.9); Red Blood Count 4.70 Miln/mm3 (4.50-5.90); White Blood Count 5.3 Thou/mm3 (3.8-10.6)
[2025-01-15 07:13] LABS: Alanine Aminotransferase 27 U/L (10-49); Albumin, Serum 4.1 gm/dL (3.4-4.8); Albumin/Globulin Ratio 1.5 (1.2-2.2); Alkaline Phosphatase 123 U/L (46-116); Anion Gap 12 (7-16); Aspartate Amino Transferase 23 U/L (0-34); BUN/Creatinine Ratio 29 Ratio (12-20); Bilirubin,Total 0.5 mg/dL (0.3-1.2); Blood Urea Nitrogen 44 mg/dL (9-23); Calcium 9.2 mg/dL (8.3-10.6); Calcium (Corrected) 9.2 mg/dL (8.5-10.1); Carbon Dioxide 26.9 mMol/L (20.0-31.0); Chloride 104 mMol/L (98-107); Creatinine (Component) 1.5 mg/dL (0.6-1.3); Estimated Creatinine Clearance 54.0 mL/min (>60); Globulin 2.8 gm/dL (2.3-3.5); Glucose 145 mg/dL (74-106); Magnesium 1.8 mg/dL (1.6-2.6); Osmolality,Calculated 299 (275-295); Phosphorous 4.0 mg/dL (2.4-5.1); Potassium 3.8 mMol/L (3.4-5.1); Sodium 143 mMol/L (136-145); Total Protein 6.9 gm/dL (5.7-8.2); eGFR 50 See Note
[2025-01-15] MEDS: INSULIN LISPRO (AdmeLOG) 1 UNIT/0.01 ML UNIT 12 UNIT SC ×2 (07:51→12:19)
[2025-01-15] MEDS: MAGNESIUM OXIDE 400 MG TABLET PO (07:52)
[2025-01-15] MEDS: INSULIN LISPRO (AdmeLOG) 1 UNIT/0.01 ML UNIT SC ×2 (07:52→12:20)
[2025-01-15] MEDS: ENOXAPARIN SOD INJ 40 MG/0.4 ML SYRINGE SC (09:07)
[2025-01-15] MEDS: BUMETANIDE 0.5 MG TABLET 1 MG PO (09:08)
[2025-01-15] MEDS: INSULIN DEGLUDEC 5 UNIT/0.05 ML (PER 5 UNITS) 15 UNIT SC (09:08)
[2025-01-15] MEDS: METOPROLOL SUCCINATE XL 25 MG TABCR PO (09:09)
[2025-01-15] MEDS: ATORVASTATIN CALCIUM 20 MG TABLET PO (09:09)
[2025-01-15] MEDS: DAPAGLIFLOZIN PROPANEDIOL 5 MG TABLET 10 MG PO (09:09)
[2025-01-15] MEDS: PANTOPRAZOLE 40 MG TABLET PO (09:09)
[2025-01-15] MEDS: TACROLIMUS 0.5 MG CAPSULE PO ×2 (09:11→20:44)
--- NOTE | 2025-01-15 09:13 | ESPR_ITS ---
Documentation for date of: 01/15/25 Subjective Subjective Interval history: 69-year-old male with a past medical history of heart transplant (at [facility] [address] Moise Hou, on immunosuppression), CHF (followed by Dr. Newton outpatient), T2DM, HLD, and GERD who comes in after PCP sent him to [facility] due to concerns for unresolving pneumonia as seen on imaging obtained outpatient. He endorses associated worsening bilateral lower extremity edema and orthopnea approximately over the last few days to week. Per patient, he is on lasix at home but due to worsening renal function it was held. Denies shortness of breath, chest pain/tightness, palpitations. Denies any recent sick contacts but endorses mild coughing of yellow sputum for the last few days. Of note, states that there are months when he does not need to take lasix as he does not have edema and dry weight is presumed to be approximately 195-200 lbs but is currently around 210 lbs. His heart transplant was done approximately 8 years ago at [facility] for presumed significant coronary artery disease and after presenting at that time he received a heart transplant one month later. He has been following Dr. Moise Hou but has been unable to see him due to insurance issues for the last 1.5 years. 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 Additionally, a visit on 09/2024 for chest pain and heaviness prompted a cardiac catheterization which yielded mildly reduced left and systolic dysfunction; EF ~45%. LAD midsegment 40% lesion but otherwise normal appearance in other coronary arteries. No stenting was done and patient was opted for medical management. 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 Nephrology consulted for HENRRY on CKD 3a. 01/08/25: Patient seen and examined at bedside. No complaints this morning, denies shortness of breath or chest pain. Reports that he has not followed up with his transplant specialist at [facility] for almost 2 years due to insurance issues. Also reports that he had symptoms of organ rejection 2 years ago. On exam patient had 3+ pitting edema extending up to his knees bilaterally. Creatinine 1.6 which appears within his baseline (1.2-1.8 since 2019). GFR 43 on admission, improved to 47 after Bumex 1 mg x2. BNP 1119 (baseline 100-300). Continue Bumex as renal function appears to be stable. 01/09/25: Patient seen and examined at bedside. Partner at bedside. Denies shortness of breath and lower extremity edema improved. Cr 1.7 which is still within his baseline. GFR 43. Continue Bumex, may transition to PO Bumex 1 mg on discharge. Attempting transfer to [facility] per primary team for post transplant follow up. 01/10/25: Patient seen and assessed at bedside with partner present. Able to ambulate around room without dyspnea. Lower extremity edema persistent but improved. Creatinine increased to 2.2, hold Bumex today. Encouraged more ambulation, elevation of lower extremities, and compression stockings. Attempting transfer to [facility]. 01/11/25: Patient seen and assessed, sitting up in chair with partner present in room. Ambulating well without dyspnea. Lower extremity edema stable since yesterday. UOP 550 cc overnight but patient and partner endorse more unrecorded output. Strict INOs. Creatinine improved to 2.0. HbA1c 10.0, on Farxiga 10mg daily. Will start Januvia 50 mg daily in light of worsening renal function (GFR 36), avoid metformin, sulfonylureas, and SGLT2. Discussed with primary team, will restart Bumex 0.5 mg daily or 1 mg every other day. Pending insurance authorization for [facility] transfer. 01/12/2025 patient currently seen in telemetry. Ambulating. Madeline at bedside. On Jardiance, Januvia, low-dose Bumex. Labs/medications reviewed. Creatinine 2.0. 01/13/25: Patient seen and assessed, sitting up in chair. UOP 2.5L. Creatinine 1.9, improving. Continue Jardiance, Januvia, and Bumex 0.5 daily. May discharge on Bumex 1 mg PO. Still pending [facility] transfer. 01/14/25: Patient seen and assessed in telemetry, sitting up in chair. UOP 800 cc overnight. Creatinine 1.7. Still pending [facility] transfer, per primary team will reach out again to transplant specialist. No need for emergency transfer from nephrology standpoint as renal function is recovering, can follow up outpatient if unable to transfer. Med recommendations as above. Instructed patient to follow up in clinic 1 week after discharge. 01/15/25: Patient seen and assessed in telemetry, sitting up in bed. Maintaining good UOP. Creatinine 1.5 and lower extremity edema returning on exam, restart on IV Bumex 1 mg daily. As above, no need for emergency transfer from nephrology standpoint as renal function back to baseline. Recommendations as above. Exam Vital Signs Temp Pulse Resp BP Pulse Ox O2 Del Method 97.3 F 83 17 133/86 H 96 Room Air 01/15/25 08:00 01/15/25 08:00 01/15/25 08:00 01/15/25 08:00 01/15/25 08:00 01/15/25 08:00 Narrative Exam Physical Exam General: Awake and in no acute distress. Conversational and non-toxic appearing. HEENT: Normocephalic, atraumatic, mucous membranes moist. Heart: Regular rate and rhythm, normal S1 and S2, no murmurs appreciated. S urgical scars on chest and base of neck. Lungs: Clear to auscultation bilaterally. Abdomen: Soft, nondistended, nontender, positive bowel sounds. No guarding or rebound tenderness. Neurologic: Alert and oriented x3, no gross neurological deficit, and patient able to move all 4 extremities. Extremities: 2+ pitting edema bilaterally extending up to knees. Skin: No rash or ecchymoses. Objective Labs 01/15/25 05:27 01/15/25 05:27 Labs: Laboratory Results - last 24 hr 01/15/25 05:27 WBC 5.3 RBC 4.70 Hgb 12.2 L Hct 39.4 L MCV 84 MCH 26.0 MCHC 31.0 RDW Std Deviation 52.1 H Plt Count 201 Neut % (Auto) 68 Lymph % (Auto) 14 Mckenzie % (Auto) 14 H Eos % (Auto) 2 Baso % (Auto) 0 Neut # (Auto) 3.6 Lymph # (Auto) 0.8 L Mckenzie # (Auto) 0.7 Eos # (Auto) 0.1 Baso # (Auto) 0.0 Immature Gran # (Auto) 0.06 H Absolute Nucleated RBC 0.00 Immature Gran % 1 H Nucleated RBC % 0 Sodium 143 Potassium 3.8 Chloride 104 Carbon Dioxide 26.9 Anion Gap 12 BUN 44 H Creatinine 1.5 H Estim Creat Clear Calc 54.0 L eGFR 50 L BUN/Creatinine Ratio 29 H Glucose 145 H Calculated Osmolality 299 H Calcium 9.2 Corrected Calcium 9.2 Phosphorus 4.0 Magnesium 1.8 Total Bilirubin 0.5 AST 23 ALT 27 Alkaline Phosphatase 123 H Total Protein 6.9 Albumin 4.1 Globulin 2.8 Albumin/Globulin Ratio 1.5 Quality Measures Quality Measures VTE prophylaxis Advance care planning discussed with:: patient Assessment & Plan Assessment Current Active Medications: Generic Name Dose Route Start Last Admin Trade Name Freq PRN Reason Stop Dose Admin Acetaminophen 650 mg 01/07/25 14:46 01/07/25 21:04 Acetaminophen 325 Mg Tablet PO 02/06/25 14:45 650 mg Q6H PRN Administration PAIN (1-3) OR FEVER > 100.4 Atorvastatin Calcium 20 mg 01/08/25 09:00 01/14/25 08:23 Atorvastatin Calcium 20 Mg Tablet PO 02/07/25 08:59 20 mg DAILY JACKIE Administration Protocol Bumetanide 1 mg 01/15/25 09:00 Bumetanide 0.5 Mg Tablet PO 02/14/25 08:59 QDAY JACKIE Sirolimus 0.5 Mg 0 ea 01/08/25 09:00 01/14/25 08:26 Tablet PO 02/06/25 20:59 2 tablet QDAY JACKIE Administration Dapagliflozin 10 mg 01/08/25 14:15 01/14/25 08:22 Dapagliflozin Propanediol 5 Mg Tablet PO 02/07/25 14:14 10 mg DAILY JACKIE Administration Dextrose 25 ml 01/07/25 15:28 Dextrose 50%-Water Inj 50 Ml Syringe IV 02/06/25 15:27 Q15MIN PRN BG 50-70 responsive npo pt Dextrose 50 ml 01/07/25 15:28 Dextrose 50%-Water Inj 50 Ml Syringe IV 02/06/25 15:27 Q15MIN PRN BG <50 OR BG <70 & pt unresponsive Docusate Sodium 100 mg 01/09/25 17:25 01/11/25 09:23 Docusate Sod 100 Mg Capsule PO 02/08/25 17:24 100 mg BID PRN Administration CONSTIPATION Protocol Enoxaparin Sodium 40 mg 01/08/25 09:00 01/14/25 08:29 Enoxaparin Sod Inj 40 Mg/0.4 Ml Syringe SC 01/22/25 08:59 40 mg QDAY JACKIE Administration Glucagon 1 mg 01/07/25 15:28 Glucagon Inj 1 Mg Vial IM Q15MIN PRN BG <70, and no IV access Insulin Degludec 15 unit 01/14/25 09:00 01/14/25 08:27 Insulin Degludec 5 Unit/0.05 Ml (Per 5 Units) SC 02/13/25 08:59 15 unit QDAY JACKIE Administration Insulin Human Lispro 12 unit 01/14/25 11:30 01/15/25 07:51 Insulin Lispro (Admelog) 1 Unit/0.01 Ml Unit SC 02/13/25 11:29 12 unit AC JACKIE Administration Insulin Human Lispro 0 unit 01/14/25 21:45 01/15/25 07:52 Insulin Lispro (Admelog) 1 Unit/0.01 Ml Unit SC 02/13/25 21:44 3 unit ACHS JACKIE Administration Protocol Metoprolol Succinate 25 mg 01/09/25 09:00 01/14/25 08:25 Metoprolol Succinate Xl 25 Mg Tabcr PO 02/08/25 08:59 25 mg QDAY JACKIE Administration Ondansetron HCl 4 mg 01/07/25 14:52 Ondansetron Inj 2 Mg/Ml Inj 2 Ml IVP 02/06/25 14:51 Q6H PRN NAUSEA OR VOMITING Protocol Pantoprazole Sodium 40 mg 01/08/25 09:00 01/14/25 08:25 Pantoprazole 40 Mg Tablet PO 02/07/25 08:59 40 mg QDAY JACKIE Administration Pharmacy Consult 1 each 01/07/25 15:05 Pharmacy Renal Dose Adjustment 1 Ea XX 02/06/25 15:04 PRN PRN CONSULT Prednisone 5 mg 01/08/25 09:00 01/14/25 08:23 Prednisone 5 Mg Tablet PO 02/07/25 08:59 5 mg QDAY JACKIE Administration Sitagliptin Phosphate 50 mg 01/11/25 11:15 01/14/25 08:25 Sitagliptin Phosphate 50 Mg Tablet PO 02/10/25 11:14 50 mg QDAY JACKIE Administration Tacrolimus 1 mg 01/07/25 21:00 01/14/25 20:46 Tacrolimus 1 Mg Capsule PO 02/06/25 20:59 1 mg Q12H JACKIE Administration Tacrolimus 0.5 mg 01/07/25 21:30 01/14/25 20:46 Tacrolimus 0.5 Mg Capsule PO 02/06/25 21:29 0.5 mg Q12H JACKIE Administration Plan Patient is a 69 year old male with past medical history of heart transplant (at [facility] [address] 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 Nephrology consulted for HENRRY on CKD 3a. #HENRRY on CKD 3a #Lower extremity edema #Hx heart transplant 03/10 dilated cardiomyopathy - Patient reports that he has been taking Lasix 40 daily for the past month for worsening lower extremity edema but was discontinued 10 days ago by PCP due to mild HENRRY. Only takes Lasix intermittently based on weight and swelling. - Patient also has history of heart transplant at [facility] in 2017 as a result of worsening dilated cardiomyopathy. Reports symptoms of organ rejection about 2 years ago and has not been able to follow up with his transplant specialist for at least 1.5 years. On low dose tacrolimus, sirolimus, and prednisone. - Appears hypervolemic on exam with 3+ pitting edema in lower extremities. - Cr 1.6 on admission which appears to be his baseline (1.2-1.8 since 2019). - GFR 43 -> 47 -> 36 (baseline 51 to greater than 60). - BNP 1119 (baseline 100-300s). 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 Plan: - Increase IV Bumex 1 mg daily, transition to Bumex 1 mg PO on discharge. 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 Can follow up outpatient if unable to transfer. Per primary team, still pending insurance auth. #Acute decompensated heart failure exacerbation #Congestive heart failure #NSTEMI type II, demand ischemia #Sinus tachycardia #Community-acquired pneumonia #History of heart transplant #Type 2 diabetes mellitus, insulin-dependent #Hyperlipidemia - Defer management to primary team Thank you for your consultation, please do not hesitate to reach out if you have any question or concern Patient plan of care was discussed with the attending physician, Dr. Ronquillo. Martha Fisher DO, PGY-1 Attending Provider Attestation/Addendum Patient seen and examined with resident physician Dr. Fisher. Note reviewed, agree with findings and recommendations.
[2025-01-15] MEDS: TACROLIMUS 1 MG CAPSULE PO ×2 (10:32→20:44)
--- NOTE | 2025-01-15 10:33 | PC.CM ---
Addendum entered by Negra Sebastian RN 01/15/25 18:41: I faxed over discharge summary to [facility]. I will take the transfer packet to the Charge nurse. Addendum entered by Negra Sebastian RN 01/15/25 18:28: [facility] transfer center called and they stated patient has been cleared financially. She states they will start looking for a bed. She asked for a updated discharge summary. I spoke to Dr. Wise and I gave him the update. I asked that they complete the discharge summary so I can fax it over to [facility]. Packet updated. Addendum entered by Negra Sebastian RN 01/15/25 16:21: I called the finance department at [facility] to follow up on CARMEN. I called twice and I was not able to get anyone to answer the phone. Addendum entered by Negra Sebastian RN 01/15/25 11:09: I called patient 's insurance [employer] and I spoke Yarelis. Janie was out today. Yarelis states they sent the CARMEN yesterday and it is in [facility] hands. I reached back out to [facility] finance department and they stated they have not received anything at this time from their zack department. She states they are more than likely reviewing the contract at this time. Original Note: I followed up with [facility] and they stated they are still waiting from a CARMEN from patient's insurance.
--- NOTE | 2025-01-15 11:03 | PC.SS ---
rounding note: Active transfer for higher level of care pending
--- NOTE | 2025-01-15 12:33 | PC.NURSE ---
Called Dr. Wise to ask if patient is okay to shower. Dr. douglased to shower.
--- NOTE | 2025-01-15 14:20 | PD.RESPRO ---
Documentation for date of: 01/15/25 Subjective Subjective Interval history: Mr. Foss is more swollen this morning, pitting edema 2+. His Bumex dose is increased to 1mg q24h. Still awaiting authorization and further disposition planning for transfer to [facility]. Otherwise NAEO, VSS. Potassium and magnesium repleted. According to case management today 10AM: I called patient 's insurance [employer] and I spoke Yarelis. Janie was out today. Yarelis states they sent the CARMEN yesterday and it is in [facility] hands. I reached back out to [facility] finance department and they stated they have not received anything at this time from their zack department. She states they are more than likely reviewing the contract at this time.' To continue following up with case management updates. Have contacted Dr. Hou, awaiting response. Exam Vital Signs Temp Pulse Resp BP Pulse Ox O2 Del Method 97.3 F 98 17 116/73 96 Room Air 01/15/25 08:00 01/15/25 09:09 01/15/25 08:00 01/15/25 09:09 01/15/25 08:00 01/15/25 08:00 Narrative Exam General: alert and oriented to self/place/year, no acute distress, able to speak full sentences HEENT: NC/AT, mucous membranes moist, bilateral sclera anicteric Cardiovascular: regular rate and rhythm, S1/S2 present, no murmurs appreciated Pulmonary: clear to auscultation bilaterally, no rales/rhonchi/wheezes Abdominal: soft, nontender, present bowel sounds Musculoskeletal: +2 bilateral pitting edema Skin: Warm, well-perfused Objective Labs 01/15/25 05:27 01/15/25 05:27 Labs: Laboratory Results - last 24 hr 01/15/25 05:27 WBC 5.3 RBC 4.70 Hgb 12.2 L Hct 39.4 L MCV 84 MCH 26.0 MCHC 31.0 RDW Std Deviation 52.1 H Plt Count 201 Neut % (Auto) 68 Lymph % (Auto) 14 Benson % (Auto) 14 H Eos % (Auto) 2 Baso % (Auto) 0 Neut # (Auto) 3.6 Lymph # (Auto) 0.8 L Benson # (Auto) 0.7 Eos # (Auto) 0.1 Baso # (Auto) 0.0 Immature Gran # (Auto) 0.06 H Absolute Nucleated RBC 0.00 Immature Gran % 1 H Nucleated RBC % 0 Sodium 143 Potassium 3.8 Chloride 104 Carbon Dioxide 26.9 Anion Gap 12 BUN 44 H Creatinine 1.5 H Estim Creat Clear Calc 54.0 L eGFR 50 L BUN/Creatinine Ratio 29 H Glucose 145 H Calculated Osmolality 299 H Calcium 9.2 Corrected Calcium 9.2 Phosphorus 4.0 Magnesium 1.8 Total Bilirubin 0.5 AST 23 ALT 27 Alkaline Phosphatase 123 H Total Protein 6.9 Albumin 4.1 Globulin 2.8 Albumin/Globulin Ratio 1.5 Quality Measures Quality Measures VTE prophylaxis Advance care planning discussed with:: significant other Assessment & Plan Assessment Current Active Medications: Generic Name Dose Route Start Last Admin Trade Name Freq PRN Reason Stop Dose Admin Acetaminophen 650 mg 01/07/25 14:46 01/07/25 21:04 Acetaminophen 325 Mg Tablet PO 02/06/25 14:45 650 mg Q6H PRN Administration PAIN (1-3) OR FEVER > 100.4 Atorvastatin Calcium 20 mg 01/08/25 09:00 01/15/25 09:09 Atorvastatin Calcium 20 Mg Tablet PO 02/07/25 08:59 20 mg DAILY JACKIE Administration Protocol Bumetanide 1 mg 01/15/25 09:00 01/15/25 09:08 Bumetanide 0.5 Mg Tablet PO 02/14/25 08:59 1 mg QDAY JACKIE Administration Sirolimus 0.5 Mg 0 ea 01/08/25 09:00 01/15/25 09:10 Tablet PO 02/06/25 20:59 2 tablet QDAY JACKIE Administration Dapagliflozin 10 mg 01/08/25 14:15 01/15/25 09:09 Dapagliflozin Propanediol 5 Mg Tablet PO 02/07/25 14:14 10 mg DAILY JACKIE Administration Dextrose 25 ml 01/07/25 15:28 Dextrose 50%-Water Inj 50 Ml Syringe IV 02/06/25 15:27 Q15MIN PRN BG 50-70 responsive npo pt Dextrose 50 ml 01/07/25 15:28 Dextrose 50%-Water Inj 50 Ml Syringe IV 02/06/25 15:27 Q15MIN PRN BG <50 OR BG <70 & pt unresponsive Docusate Sodium 100 mg 01/09/25 17:25 01/11/25 09:23 Docusate Sod 100 Mg Capsule PO 02/08/25 17:24 100 mg BID PRN Administration CONSTIPATION Protocol Enoxaparin Sodium 40 mg 01/08/25 09:00 01/15/25 09:07 Enoxaparin Sod Inj 40 Mg/0.4 Ml Syringe SC 01/22/25 08:59 40 mg QDAY JACKIE Administration Glucagon 1 mg 01/07/25 15:28 Glucagon Inj 1 Mg Vial IM Q15MIN PRN BG <70, and no IV access Insulin Degludec 15 unit 01/14/25 09:00 01/15/25 09:08 Insulin Degludec 5 Unit/0.05 Ml (Per 5 Units) SC 02/13/25 08:59 15 unit QDAY JACKIE Administration Insulin Human Lispro 12 unit 01/14/25 11:30 01/15/25 12:19 Insulin Lispro (Admelog) 1 Unit/0.01 Ml Unit SC 02/13/25 11:29 12 unit AC JACKIE Administration Insulin Human Lispro 0 unit 01/14/25 21:45 01/15/25 12:20 Insulin Lispro (Admelog) 1 Unit/0.01 Ml Unit SC 02/13/25 21:44 3 unit ACHS JACKIE Administration Protocol Metoprolol Succinate 25 mg 01/09/25 09:00 01/15/25 09:09 Metoprolol Succinate Xl 25 Mg Tabcr PO 02/08/25 08:59 25 mg QDAY JACKIE Administration Ondansetron HCl 4 mg 01/07/25 14:52 Ondansetron Inj 2 Mg/Ml Inj 2 Ml IVP 02/06/25 14:51 Q6H PRN NAUSEA OR VOMITING Protocol Pantoprazole Sodium 40 mg 01/08/25 09:00 01/15/25 09:09 Pantoprazole 40 Mg Tablet PO 02/07/25 08:59 40 mg QDAY JACKIE Administration Pharmacy Consult 1 each 01/07/25 15:05 Pharmacy Renal Dose Adjustment 1 Ea XX 02/06/25 15:04 PRN PRN CONSULT Prednisone 5 mg 01/08/25 09:00 01/15/25 09:10 Prednisone 5 Mg Tablet PO 02/07/25 08:59 5 mg QDAY JACKIE Administration Sitagliptin Phosphate 50 mg 01/11/25 11:15 01/15/25 09:09 Sitagliptin Phosphate 50 Mg Tablet PO 02/10/25 11:14 50 mg QDAY JACKIE Administration Tacrolimus 1 mg 01/07/25 21:00 01/15/25 10:32 Tacrolimus 1 Mg Capsule PO 02/06/25 20:59 1 mg Q12H JACKIE Administration Tacrolimus 0.5 mg 01/07/25 21:30 01/15/25 09:11 Tacrolimus 0.5 Mg Capsule PO 02/06/25 21:29 0.5 mg Q12H JACKIE Administration Plan 69 year old male with past medical history of heart transplant (at [facility] [address] 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 Pending transfer to [facility] for further workup and management. #Acute decompensated heart failure exacerbation #Congestive heart failure #NSTEMI type II, demand ischemia #Sinus tachycardia #Transplant rejection History of heart transplant on immunosuppression since 2017 with insurance issues and lack of follow up since then. Has noted increasing bilateral lower extremity edema for 3 days prior to admission. Endorsed associated PND and orthopnea but no chest pain. Initial BNP 1119 and troponins peaked to 0.069, likely demand ischemia in setting of CHF. Echo showed EF 20-25% with grade 2 diastolic dysfunction, down from 30% in 2020. Worsened ejection fraction notes a continued worry for transplant rejection, for which definitive diagnosis necessitates monitoring of anti-rejection medication levels(tacrolimus, sirolimus) and a cardiac, coronary artery biopsy, for which the facilities at [facility] are not made available. Dr. Moise Hou and Transplant Center have agreed to accept the patient since last week, 01/10/2025. Pending insurance authorization and to sign letter of acceptance. ? Cardiology consulted, appreciate recs ? Bumex 1 mg daily ? Strict I/O, fluid restriction (1.5 L daily), daily weights ? Keep Mg > 2, K > 4 ? dapagliflozin 10mg q24h ? Transfer to [facility] with accepting physician Dr. Moise Hou for further workup regarding CHF exacerbation vs transplant rejection; to follow up with case management regarding updates. #Chronic kidney disease #Acute on chronic kidney injury Baseline creatinine and GFR appear to have significant fluctuations but PCP held lasix in light of worsening renal function. Given that patient is on nephrotoxic drugs in conjunction with HENRRY, will consult nephrology. ? Nephrology consulted, appreciate recommendations ? Renal dose medications ? When possible, avoid nephrotoxic agents ? Consulted pharmacy regarding Levoquine dosing, 750mg q 24 okay given creatinine clearance rate - Per nephrology: 01/15 increase bumex to 1mg q24h -Continue fluid restriction 1500ml/day limit 01/13no updates from Dr. 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 Moise Hou at [facility] and patient unclear of exact reason why but suspect to be due to severe CAD at that time. 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 ? Resume home immunosuppression medication regimen ? Tacrolimus 1.0 mg BID + Tacrolimus 0.5 mg BID (confirmed by patient) ? Sirolimus 0.5 mg BID ? Prednisone 5 mg daily #Type 2 diabetes mellitus, insulin-dependent On insulin lispro at home, not taking glargine A1c 10% ? SSI ? Hypoglycemic protocol in place ? Degludec 10 units ? Lispro with meals 10 units #Hyperlipidemia ? Resumed home rosuvastatin 5 mg daily #Community-acquired pneumonia - resolved 3 day history of cough with yellow sputum production prior to admission. On immunosuppressive medications s/p transplant, thus low threshold for pneumonia suspicion despite afebrile and VSS. ? Levoquine 750 mg q24 (01/08-01/15) originally started but discontinued for patient's symptomatic improvement on diuresis and lack of persisting respiratory symptoms Cultures NGTD Hospital management: Disposition: pending transfer, diuresis, steroids, glucose checks Diet: low sodium Lines: PIV DVT prophylaxis: lovenox GI prophylaxis: pantoprazole 40 mg daily Zelaya: not indicated CODE STATUS: full code Patient seen and discussed with Dr. Kun Wise and senior resident Dr. Bakari Allen MD PGY-1
--- NOTE | 2025-01-15 16:58 | PC.NURSE ---
Patient's blood sugar is 96. Called Dr. Huff and made aware. said to hold the scheduled 12 units of lispro.
--- NOTE | 2025-01-15 17:57 | PC.NURSE ---
Received a call from a [facility] nurse regarding patient's transfer. The nurse said they will likely receive him tonight, just waiting on a bed to open. Will call back when bed opens up and will receive report at that time.
--- NOTE | 2025-01-15 18:21 | ESDS_ITS ---
<Statement entered by Bakari Huff MD - 01/15/25 18:33> Note reviewed and agree with care plan as documented. Please refer to the note below for further details. Plan discussed with attending physician Dr. Frandy Huff MD PGY-2 Internal Medicine Planned Discharge Date 01/15/25 DS: Providers Provider Date of admission: 01/07/25 14:59 Primary care physician: Jordan Vyas MD Admitting Provider: Nazanin Thompson DO Attending Provider on Admission: Nazanin Thompson DO Consults: 01/07/25 13:35 Consult to Cardiology Stat Comment: Consulting Provider: Gabino Newton 01/07/25 15:02 Consult to Nephrology Stat Comment: Consulting Provider: Ramon Ronquillo 01/09/25 13:51 Referral - Track Repair Supervisor Stat Service Needed for Transfer: Cardiology Addl Comments:: Transfer to [facility] Accepting Physician Dr. Moise Hou Pt w/ PMH heart transplant previously managed by Dr. Moise Hou presents for CHF exacerbation, concerns for Heart Failure vs rejection. Attending Provider on DC: Omid Allen MD Discharging Provider: Omid Allen MD DS: Diagnosis Problem List Completed Was Problem List Reviewed/Reconciled?: Yes Hospital Course Hospital Course Hospital course: Mr. Rosa Foss is a 69 M w/ a PMH history of cardiac transplantation at [facility] in 2017 for heart failure, on immunosuppresion medication with tacrolimus, sirolimus here for CHF exacerbation and possible organ rejection. He was admitted to [facility] for treatment for heart failure, with ECHO revealing ~25% EF from a previous ~35% in 2019. Home meds were resumed with bumetanide changed from furosemide 40mg home regimen; dapagliflozin 10mg q24h was added ot regimen. A1c drawn at admission yielded 10%. 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 Moise Hou(who managed him post-transplant), prov ided deputy county counsel on starting solumedrol 250mg to treat acute symptoms of rejection and a cardiac catheterization. Extensive talks held with Dr. Hou urged a transfer to [facility] for higher level of care that include, but are limited to repeat cardiac catheterization, alteration in immunosuppresion medication and cardiac biopsy. Initiation with transfer center started. 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 #Type 2 diabetes mellitus, insulin-dependent #Hyperlipidemia Discharge instructions: Please continue taking your antirejection medication Please follow up with recommendations s/p your transfer to [facility] Fluid restriction in the setting of CHF exacerbation Please remember to take your [id number] daily Please follow up with your primary care provider after hospitalization For any swelling, shortness of breath, fever or acute concerns, do not hesitate to return to [facility] Emergency Department Time Spent with Patient Time attestation: Total time spent providing and/or coordinating discharge services: Time spent: Greater than 30 minutes Exam Vital Signs Temp Pulse Resp BP Pulse Ox O2 Del Method 97.6 F 78 19 110/68 97 Room Air 01/15/25 16:00 01/15/25 16:00 01/15/25 16:00 01/15/25 16:00 01/15/25 16:00 01/15/25 16:00 Narrative Exam General: alert and oriented to self/place/year, no acute distress, able to speak full sentences HEENT: NC/AT, mucous membranes moist, bilateral sclera anicteric Cardiovascular: regular rate and rhythm, S1/S2 present, no murmurs appreciated Pulmonary: clear to auscultation bilaterally, no rales/rhonchi/wheezes Abdominal: soft, nontender, present bowel sounds Musculoskeletal: +2 bilateral pitting edema Skin: Warm, well-perfused Discharge Plan Plan Patient Disposition: [facility] Other Facility Pt Being Transferred to: [facility] Service Needed for Transfer: Cardiology Disposition Comment: -Transfer to [facility] with Dr. Moise Hou for further workup ; Patient condition on transfer: Stable Care Plan Goals: Please continue taking your antirejection medication Please follow up with recommendations s/p your transfer to [facility] Fluid restriction in the setting of CHF exacerbation Please remember to take your [id number] daily Please follow up with your primary care provider after hospitalization For any swelling, shortness of breath, fever or acute concerns, do not hesitate to return to [facility] Emergency Department Prescriptions/Referrals Prescriptions/Med Rec: New dapagliflozin propanediol 10 mg tablet 10 mg PO DAILY 30 Days Qty: 30 0RF Continued prednisolone 5 mg tablet 5 mg PO QDAY omeprazole 20 MG capsule,delayed release(DR/EC) 20 mg PO QDAY Qty: 0 insulin aspart U-100 [Novolog FlexPen U-100 Insulin] 100 unit/mL (3 mL) Insulin Pen 10 unit SUBCUT TID tacrolimus [Prograf] 1 mg Capsule 3 mg PO Q12H sirolimus 0.5 mg tablet 1 mg PO Q12H Patient Comments: TAKE 2 TABLETS BY MOUTH DAILY. rosuvastatin 20 mg tablet 5 mg PO DAILY Patient Comments: TAKE 1 TABLET BY MOUTH EVERYDAY AT BEDTIME tacrolimus 0.5 mg capsule 0.5 mg PO Q12H Patient Comments: TAKE 1 CAPSULE (0.5 MG TOTAL) BY MOUTH TWO (2) TIMES DAILY. tramadol 50 mg tablet 50 mg PO DAILY PRN (Reason: pain) Patient Comments: TAKE 1 TABLET NEEDED ORALLY ONCE A DAY NEEDED amlodipine 5 mg tablet 5 mg PO DAILY Patient Comments: TAKE 1 TABLET BY MOUTH EVERY DAY carvedilol 6.25 mg tablet 6.25 mg PO BID Patient Comments: TAKE 1 TABLET BY MOUTH TWICE A DAY WITH FOOD Discontinued gabapentin 100 mg capsule 50 mg PO DAILY Victoza 2-Jose Guadalupe 0.6 mg/0.1 mL (18 mg/3 mL) pen injector 1.2 mg subcut QDAY insulin glargine [Lantus U-100 Insulin] 100 unit/mL Solution 26 unit SUBCUT QPM No Action amoxicillin-pot clavulanate 875-125 mg tablet 1 tab PO Q12H Patient Comments: TAKE 1 TABLET BY MOUTH EVERY 12 HOURS Referrals: Jordan Vyas MD [Primary Care Provider, Family Practice] Patient/Caregiver Discharge Instructions Discharge Activity: resume usual activities Other Discharge Activity Instructions:: -Medical management per team at [facility], as well as post-visit recommendations regarding activity and disposition Education Materials: Low-Salt Choices, Diabetes: Caring for Your Body, Heart Failure: Evaluating Your Heart Print Language: Slovak Stand Alone Forms: Martine Award Info., Patient Portal Info Letter Discharge Order Discharge Orders: Discharge (Routine); Ordered 01/16/25 Ordered By: Omid Morrell Quality Discharge Quality Measures VTE prophylaxis Attestestation MD Attestation I have examined the patient, reviewed labs and imaging findings, discussed the case with the resident(s), and reviewed entered orders. I agree with the plan of care as outlined in this note. Time Spent; [address] Frandy MD
--- NOTE | 2025-01-15 22:07 | PC.NURSE ---
SPOKE WITH [facility] AT [facility]. REPORT GIVEN TO STALIN VARNER. PT TO BE TRANSFERRED TO CCU ROOM [address] [facility] LORENZA CISNEROS. TRANSPORTATION TO BE ARRANGED BY US. DEO SORIA RN MADE AWARE. WILL CALL LORENZA BACK WITH LSW TIME.
[2025-01-16] VITALS: BP 135/91; PULSE 79; PULSE 82; RESP 18; TEMP 36.6; O2SAT 95
== END 2025-01-16 01:25 | disposition short-term general hospital (02) | DRG 280 ==
LOC: SERX 13:46 → SERHOLD 15:09 → S2NX 18:18
PROVIDERS: Nurse Practitioner Primary Care; Admitting Provider Internal Medicine; Emergency Provider Emergency Medicine; PCP Family Medicine; Visit Provider Internal Medicine
DX: I13.0 Hypertensive heart and chronic kidney disease with heart failure and stage 1 through stage 4 chronic kidney disease, or unspecified chronic kidney disease (principal); I50.21 Acute systolic (congestive) heart failure; I21.A1 Myocardial infarction type 2; J18.9 Pneumonia, unspecified organism; J96.01 Acute respiratory failure with hypoxia; N17.9 Acute kidney failure, unspecified; D84.821 Immunodeficiency due to drugs; T86.298 Other complications of heart transplant; Z85.46 Personal history of malignant neoplasm of prostate; E78.5 Hyperlipidemia, unspecified; K21.9 Gastro-esophageal reflux disease without esophagitis; R00.0 Tachycardia, unspecified; E11.22 Type 2 diabetes mellitus with diabetic chronic kidney disease; Z79.4 Long term (current) use of insulin; E11.649 Type 2 diabetes mellitus with hypoglycemia without coma; I45.10 Unspecified right bundle-branch block; Z87.891 Personal history of nicotine dependence; I42.0 Dilated cardiomyopathy; E11.65 Type 2 diabetes mellitus with hyperglycemia; I25.10 Atherosclerotic heart disease of native coronary artery without angina pectoris; N18.31 Chronic kidney disease, stage 3a; Z79.60 Long term (current) use of unspecified immunomodulators and immunosuppressants; Z79.84 Long term (current) use of oral hypoglycemic drugs; Z79.899 Other long term (current) drug therapy; Z92.3 Personal history of irradiation; Y83.0 Surgical operation with transplant of whole organ as the cause of abnormal reaction of the patient, or of later complication, without mention of misadventure at the time of the procedure
CPT/HCPCS: 36415; 71046; 80048; 80053; 80061; 80195; 80197; 83036; 83605; 83735; 83880; 84100; 84145; 84443; 84484; 85025; 87040; 87502; 87811; 93005; 93306; 99283; J1650; J1815; J1956; J2919; J3475; J3490; J7507; J7512; J8499; A9270